=== PATIENT | male | born 1955 | race Caucasian/White ===

== ENCOUNTER 2017-05-17 23:21 | Emergency (ER) | payer OTHER ==
[~2017-05-17] VITALS: Ht 177.8 cm; Wt 77.1 kg
[~2017-05-17 23:21] MED LIST: ACETAMINOPHEN325 M1 PO; ADVANCED ANTAC355 ML PER TUBE; ALPRAZOLAM2 MG PO; AMBIEN 5 MG TABL5 M1 PO; ASPIR 8181 MG PO; BENADRYL25 MG PO; BISAC-EVAC10 MG RC; BUPRENORPHINE HC2 MG SUBLING; CENTRUM SILVER1 EAC2 PO; COLACE100 MG PO; COUMADIN 2 MG TA2 M1 PO; COUMADIN 5 MG TA5 M1 PO; DEPAKOTE500 MG PO; DESYREL100 MG PO; DIAZEPAM 10 MG10 M1 PO; DIAZEPAM 5 MG5 M1 PO; DIPHENHIST50 MG PO; DOLOPHINE HCL5 MG PO; EFFEXOR XR150 MG PO; EFFEXOR XR75 MG PO; EFFEXOR75 MG PO; IBUPROFEN200 M2 PO; METHADONE HCL 110 M1 PO; METOPROLOL TART25 MG PO; MORPHINE SULFAT15 M1 PO; MS CONTIN 30 MG30 M1 PO; MS CONTIN30 MG PO; OXYCODONE HCL 55 MG PO; OXYCODONE HCL E10 MG PO; OXYCODONE IR PO; OXYCONTIN10 M1 PO; PERCOCET 5-3251 EACH PO; PHOSPHATIDYL S100 GM PO; PROMETHAZINE12.5 M1 PO; TOPROL XL50 MG PO; TRAZODONE 150150 M1 PO; TRAZODONE PO; XANAX XR1 MG PO
[2017-05-17 23:39] LABS: ABSOLUTE NEUTROPHILS 8.8 thou/uL (1.4-8.2); BASOPHILS 0.6 % (0.0-2.0); EOSINOPHILS 0.4 % (0.0-3.0); HEMATOCRIT 40.1 % (42.0-52.0); LYMPHOCYTES 22.8 % (24.0-44.0); MCHC 34.9 g/dL (28.0-37.0); MONOCYTES 4.3 % (1.0-8.0); PLATELET COUNT 449 thou/uL (150-400); POLYS 71.9 % (36.0-66.0); RBC 4.66 mil/uL (4.50-6.00); RDW 13.3 % (10.5-14.5); WBC 12.3 thou/uL (4.0-11.0)
[2017-05-17 23:42] LABS: CALCIUM 9.2 mg/dL (8.5-10.1); CREATININE 1.6 mg/dL (0.7-1.3); POTASSIUM 3.7 mmol/L (3.5-5.1)
[2017-05-17 23:48] LABS: ALBUMIN 3.9 g/dL (3.4-5.0); TOTAL BILIRUBIN 0.8 mg/dL (<0.1-1.0); TOTAL PROTEIN 8.9 g/dL (6.4-8.2)
[2017-05-18] MEDS ORDERED: XANAX2 MG PO (00:02)
[2017-05-18] MEDS ORDERED: DEPAKOTE500 MG PO (00:02)
[2017-05-18 01:53] VITALS: BP 140/103
[2017-10-28] MEDS ORDERED: LOPRESSOR50 PO (16:04)
[2017-10-28] MEDS ORDERED: EFFEXOR XR75 MG PO (16:05)
[2017-10-28] MEDS ORDERED: DOLOPHINE HCL10 MG PO (16:07)
== END 2017-05-18 01:55 | disposition home or self-care (01) ==
LOC: ER 23:21
PROVIDERS: Emergency Medicine
DX: G40.909 Epilepsy, unspecified, not intractable, without status epilepticus (principal); F13.239 Sedative, hypnotic or anxiolytic dependence with withdrawal, unspecified; G89.29 Other chronic pain; M54.9 Dorsalgia, unspecified; F31.9 Bipolar disorder, unspecified; F41.9 Anxiety disorder, unspecified; I10 Essential (primary) hypertension; Z96.651 Presence of right artificial knee joint; Z88.5 Allergy status to narcotic agent; Z88.2 Allergy status to sulfonamides; Z88.6 Allergy status to analgesic agent

== ENCOUNTER 2017-11-11 12:13 | Inpatient (IN) | payer OTHER ==
[~2017-11-11] VITALS: Ht 177.8 cm; Wt 80.7 kg
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
--- NOTE | ~2017-11-11 | EEG ---
[facility] [place] [address] ELECTROENCEPHALOGRAM Name: RUMA LOYA Room #: 420-P [facility] IN M.R.#: [id number] Admission: 11/11/17 Attend Phys: Scott Tovar MD, [facility] Discharge: Date of : 57 Report #: [id number] THIS REPORT FOR: //name// CC: Scott Tovar DATE OF SERVICE: 11/11/2017 This patient had 2 seizures. He had what looks like involuntary movements today. The EEG is being done to further evaluate that. The EEG was done by placing the electrode by standard 10-20 system of electrode placement. Both referential and sequential montages were used for recording. Background activity in this patient's EEG is about 11 Hz and 40-50 microvolt. It is a symmetrical activity. The patient went to sleep associated with bilaterally symmetrical sleep spindle and vertex sharp waves. Photic stimulation is unremarkable. Throughout the records, no active epileptiform activity was noticed. IMPRESSION: This patient's EEG does not demonstrate any clear-cut epileptiform activity. By: 14 Dillon Calvo MD /nt
--- NOTE | ~2017-11-11 | H ---
[facility] [place] [address] HISTORY AND PHYSICAL Name: RUMA LOYA Room #: 420-P [facility] IN M.R.#: [id number] Admission: 11/11/17 Attend Phys: Scott Tovar MD, FAAF Discharge: Date of : 57 Report #: [id number] THIS REPORT FOR: //name// CC: Scott Calvo MD DATE OF SERVICE: 11/11/2017 CHIEF COMPLAINT: Possible seizure. HISTORY OF PRESENT ILLNESS: The patient is a 62-year-old white male patient of [facility] who was having lunch at [employer], having just ordered, had an odd event where he started staring at the ceiling, turning circles and pointing and talking then lost consciousness. He came to fairly quickly. He was with his girlfriend. He was not postictal at that time. They proceeded to the Emergency Department at [facility] where he was evaluated by the Emergency Room physician and also Dr. Dillon Calvo, neurologist, and EEG was done. 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 MEDICATIONS: Trazodone 150 mg 1 p.o. at bedtime, Depakote 500 mg 1 p.o. b.i.d., alprazolam 2 mg q.i.d. p.r.n. anxiety, metoprolol 50 mg 1 p.o. b.i.d., Effexor XR 75 mg 2 p.o. b.i.d., methadone 20 mg p.o. b.i.d. ALLERGIES: SULFA, CODEINE, HYDROCODONE AND TRAMADOL. SOCIAL HISTORY: Nonsmoker, nondrinker. Denies recreational drug use. He is soon to move to [facility], mother in the [place] area. REVIEW OF SYSTEMS: GENERAL: No fever, chills, nausea, vomiting, diarrhea. EYES: No visual changes. ENT: No problems with hearing, swallow, taste or smell. CARDIOVASCULAR: No chest pain or palpitations. RESPIRATORY: No difficulty breathing. GASTROINTESTINAL: No abdominal pain. GENITOURINARY: No problems urinating. MUSCULOSKELETAL: No muscle or joint pain. DERMATOLOGIC: There is no disturbing lesions or rash. NEUROLOGIC: A recent syncopal episode versus seizure. Remainder of system review is negative. [address] [address] HISTORY AND PHYSICAL Name: RUMA LOYA Room #: 420-[facility] IN M.R.#: [id number] Admission: 11/11/17 Attend Phys: Scott Tovar MD, FAAF Discharge: Date of : 57 Report #: [id number] OBJECTIVE: VITAL SIGNS: Temperature is 36.7, pulse 75, respirations 17, blood pressure 125/86, pulse ox on room air is 100%. He weighs 80.74 kilos or 178 pounds. GENERAL: At the time of my exam in the Emergency Department, he was in no acute distress, engaging in conversation. Speaks full sentences, answers questions appropriately. HEENT: Pupils equal, round, reactive to light and accommodation. Extraocular muscles intact. Pharynx unremarkable. NECK: Supple. CARDIAC: S1, S2. CHEST: Clear. ABDOMEN: Soft, nontender. EXTREMITIES: No cyanosis, clubbing or edema. SKIN: He is intact without focal deficit. LABORATORY EVALUATIONS: CBC: White count is 5.3, hemoglobin 13.1, hematocrit 37.2, platelets 262,000. Serum chemistry: Sodium 139, potassium 3.6, chloride 100, CO2 of 24, BUN 12, creatinine 1.6, estimated glomerular filtration rate 44, glucose 132, calcium 9.0. Total bilirubin 1.1, AST 20, ALT 15, alkaline phosphatase 95. Troponin less than 0.06. BNP 1611. Total protein 7.8, albumin 7.8. Valproic acid level 28. ASSESSMENT: Seizure versus syncopal episode, loss of consciousness, elevated creatinine, chronic back pain, elevated brain natriuretic peptide. PLAN: Admit to hospital, a.m. labs. Follow up Neurology consult. CT scan and chest x-rays were negative. <ELECTRONICALLY SIGNED> By: Scott Tovar MD, FAAFP, FACEP 11/12/17 1633 1538 1615 Scott Tovar MD, SUSIFP, FACEP /nt
--- NOTE | ~2017-11-11 | EKG ---
[place] [address] [facility] [address] ELECTROCARDIOGRAM REPORT Name: RUMA LOYA Room #: 420-P ADM IN M.R.#: [id number] Admission: 11/11/17 Attend Phys: Scott Tovar MD, FAAF Discharge: Date of : 57 Report #: [id number] THIS REPORT FOR: //name// [facility] ED Test Date: 2017-11-11 Test Time: 13:32:45 Pat Name: RUMA LOYA Department: Room: Gender: M Major General: ABELINO : 1955 Requested By: Rubén Quiroz Order Number: [id number] MD: Mateo Roldan Measurements Intervals [place] Rate: 66 P: 43 NV: 165 QRS: -24 QRSD: 104 T: 6 QT: 416 QTc: 436 Interpretive Statements Sinus rhythm Borderline left axis deviation Abnormal R-wave progression, early transition Compared to ECG 04/03/2013 10:25:42 Sinus bradycardia no longer present Electronically Signed On 11-12-2017 7:30:47 CDT by Mateo Roldan [email or web address] <ELECTRONICALLY SIGNED> By: Mateo Roldan MD, [facility] 11/12/17 0730 1332 1332 Mateo Roldan MD, [facility] /EPI
[2017-11-11 12:13] VITALS: BP 125/86
[~2017-11-11 12:13] MED LIST changes: +DOLOPHINE HCL10 MG PO; +LOPRESSOR50 PO; +XANAX2 MG PO
[2017-11-11 13:19] LABS: ABSOLUTE NEUTROPHILS 3.7 thou/uL (1.4-8.2); BASOPHILS 0.6 % (0.0-2.0); EOSINOPHILS 1.3 % (0.0-3.0); HEMATOCRIT 37.2 % (42.0-52.0); HEMOGLOBIN 13.1 gm/dL (14.0-18.0); LYMPHOCYTES 23.6 % (24.0-44.0); MCH 30.3 pg (26.0-34.0); MCHC 35.1 g/dL (28.0-37.0); MCV 86.4 fL (80.0-100.0); MONOCYTES 4.6 % (1.0-8.0); PLATELET COUNT 262 thou/uL (150-400); POLYS 69.9 % (36.0-66.0); RBC 4.31 mil/uL (4.50-6.00); RDW 13.6 % (10.5-14.5); WBC 5.3 thou/uL (4.0-11.0)
[2017-11-11 13:24] LABS: ANION GAP 15 mmol/L (7-16); BUN 12 mg/dL (7-18); CHLORIDE 100 mmol/L (98-107); CO2 24 mmol/L (21-32); CREATININE 1.6 mg/dL (0.7-1.3); GLUCOSE 132 mg/dL (74-106); POTASSIUM 3.6 mmol/L (3.5-5.1); SODIUM 139 mmol/L (136-145)
[2017-11-11 13:32] LABS: ALBUMIN 3.9 g/dL (3.4-5.0); SGOT 20 U/L (15-37); SGPT 15 U/L (30-65); TOTAL BILIRUBIN 1.1 mg/dL (<0.1-1.0); TOTAL PROTEIN 7.8 g/dL (6.4-8.2); TROPONIN-I <0.06 ng/mL (<0.06)
[2017-11-11 18:47] VITALS: BP 136/98
[2017-11-11 19:33] VITALS: BP 137/88
[2017-11-11 19:40] VITALS: BP 153/96
[2017-11-12] VITALS: BP 120/68
[2017-11-12 04:05] VITALS: BP 123/74
[2017-11-12 06:02] LABS: ABSOLUTE NEUTROPHILS 3.4 thou/uL (1.4-8.2); BASOPHILS 0.8 % (0.0-2.0); HEMATOCRIT 31.9 % (42.0-52.0); HEMOGLOBIN 11.3 gm/dL (14.0-18.0); LYMPHOCYTES 38.6 % (24.0-44.0); MCH 30.5 pg (26.0-34.0); MCHC 35.3 g/dL (28.0-37.0); MCV 86.4 fL (80.0-100.0); MONOCYTES 7.3 % (1.0-8.0); PLATELET COUNT 207 thou/uL (150-400); POLYS 50.3 % (36.0-66.0); RBC 3.69 mil/uL (4.50-6.00); RDW 13.8 % (10.5-14.5); WBC 6.9 thou/uL (4.0-11.0)
[2017-11-12 06:21] LABS: CALCIUM 8.2 mg/dL (8.5-10.1); CREATININE 1.2 mg/dL (0.7-1.3); POTASSIUM 3.5 mmol/L (3.5-5.1)
[2017-11-12 07:40] VITALS: BP 125/75
[2017-11-12 16:35] VITALS: BP 125/75
[2017-11-12 16:46] VITALS: BP 133/84
== END 2017-11-12 17:02 | disposition home or self-care (01) | DRG 312 ==
LOC: ER 12:13 → EROBS 13:45 → 4E 13:45
PROVIDERS: Emergency Medicine; Family Medicine
DX: R55 Syncope and collapse (principal); G89.29 Other chronic pain; M54.9 Dorsalgia, unspecified; F31.9 Bipolar disorder, unspecified; F41.9 Anxiety disorder, unspecified; I10 Essential (primary) hypertension; Z96.651 Presence of right artificial knee joint; Z86.19 Personal history of other infectious and parasitic diseases; Z88.6 Allergy status to analgesic agent; Z88.2 Allergy status to sulfonamides; Z88.8 Allergy status to other drugs, medicaments and biological substances; Z79.899 Other long term (current) drug therapy
CPT/HCPCS: 10183

== ENCOUNTER 2019-08-13 14:11 | Inpatient (IN) | payer OTHER ==
[~2019-08-13] VITALS: Ht 177.8 cm; Wt 67.6 kg
--- NOTE | ~2019-08-13 | EMS ---
[address] [address] EMS Patient Care Report Name: RUMA LOYA Room #: REG RAÚL Gray#: [id number] Admission: 08/13/19 Attend Phys: Discharge: Date of : 57 Report #: [id number] THIS REPORT FOR: //name// Report Transmitted: 08/13/2019 15:56 EMS Care Summary [place], [place]/[facility] Incident [id number] @ 08/13/2019 13:32 Incident [id number] [place] [address] [address] Patient RUMA LOYA Male, 64 Years 1955 Patient Address [id number] [place] [address] [address] [place] [id number] Patient Allergies Codeine,Sulfa,Oxycodone,Tramadol, Chief Complaint Head injury Disposition Transported No Lights/[place] Reason Falls Transported To [facility] Narrative 64 y/o male with a head injury after a fall. On arrival found pt sitting on floor with broken pieces of a table around him, P45 and NH staff on scene. Pt stated he lost his balance and fell hitting his head. Pt denied neck/back pain, denied losing consciousness and had no obvious neurological deficits. Pt was able to stand with assistance and transfer to stretcher. P45/EMS transferred pt in stretcher to ambulance. Once in ambulance EMS attempted an IV, unsuccessful and performed a 12-lead ECG. [address] [address] EMS Patient Care Report Name: RUMA LOYA Room #: REG [facility].#: [id number] Admission: 08/13/19 Attend Phys: Discharge: Date of : 57 Report #: [id number] EMS monitored pt/VS/ECG en route to [facility] ED. Transferred care of pt to [facility] ED RN without incident. Initial Vitals @14:00P: 67,BP: 151/85,CO: 0,SpO2: 96, @13:50P: 71,BP: 158/87,CO: 2,SpO2: 95, @13:43P: 75,R: 20,BP: 165/90,Pain: 2/10,GCS: 15,Glucose: 207,SpO2: 95,Revised Trauma: 12, @13:53P: 68,SpO2: 97, Assessments @13:41MENTAL:Confused,Person Oriented,Place Oriented,Event Oriented,SKIN:No Abnormalities,HEENT:Head/Face: Other,Head/Face: ABR,Head/Face: ABR,LUNG SOUNDS:General: No Abnormalities,Left Upper: No Abnormalities,Right Upper: No Abnormalities,Left Lower: No Abnormalities,Right Lower: No Abnormalities,ABDOMEN:General: No Abnormalities,Left Upper: No Abnormalities,Right Upper: No Abnormalities,Left Lower: No Abnormalities,Right Lower: No Abnormalities,PELVIS//GI:No Abnormalities,EXTREMITIES:Capillary Refill: Left Upper: < 2 Sec,Left Arm: No Abnormalities,Right Arm: No Abnormalities,Left Leg: No Abnormalities,Right Leg: No Abnormalities,PULSE:Radial: 2+ Normal,NEURO:No Abnormalities, Impression Injury of Head Procedures @13:5312-Lead ECGResponse: UnchangedSucceeded@13:41ALS AssessmentResponse: UnchangedSucceeded Timeline 13:29,Call Received 13:29,Dispatch Notified 13:32,Dispatched 13:33,En Route 13:37,On Scene 13:41,At Patient 13:41,ALS Assessment,Response: UnchangedSucceeded, 13:43,BP: 165/90 M,PULSE: 75,RR: 20 R,SPO2: 95 Ox,ETCO2: ,B,PAIN: 2,GCS: 15, 13:50,BP: 158/87 M,PULSE: 71,RR: R,SPO2: 95 Ox,ETCO2: ,BG: ,PAIN: ,GCS: , 13:53,12-Lead ECG,Response: UnchangedSucceeded, 13:53,BP: / M,PULSE: 68,RR: R,SPO2: 97 Ox,ETCO2: ,BG: ,PAIN: ,GCS: , 13:56,Depart Scene 14:00,BP: 151/85 M,PULSE: 67,RR: R,SPO2: 96 Ox,ETCO2: ,BG: ,PAIN: ,GCS: , 14:13,At Destination [address] [address] EMS Patient Care Report Name: RUMA LOYA Room #: REG [facility].#: [id number] Admission: 08/13/19 Attend Phys: Discharge: Date of : 57 Report #: [id number] 14:24,Call Closed Disclaimer v1.1 Copyright 2020 [employer] This EMS Care Summary contains data elements from the applicable legal record (which may be displayed differently). It is designed to provide pertinent information for the following purposes: continuity of care, clinical quality, and state data reporting. The complete legal record is available to ED staff and administrators of the receiving hospital in [employer]'s Patient Tracker. All data is provided "as is."
[~2019-08-13 14:11] MED LIST changes: +EFFEXOR 5050 MG/1 T1 PO
[2019-08-13 14:12] VITALS: BP 151/85
[2019-08-13] MEDS ORDERED: LORAZEPAM 1 MG T1 MG PO (14:21)
[2019-08-13 15:52] LABS: ABSOLUTE NEUTROPHILS 12.1 thou/uL (1.4-8.2); BASOPHILS 0.5 % (0.0-2.0); HEMOGLOBIN 12.3 gm/dL (14.0-18.0); MCH 29.1 pg (26.0-34.0); MCHC 33.4 g/dL (28.0-37.0); MCV 87.4 fL (80.0-100.0); MONOCYTES 5.1 % (1.0-8.0); PLATELET COUNT 466 thou/uL (150-400); POLYS 85.4 % (36.0-66.0); RBC 4.23 mil/uL (4.50-6.00); RDW 15.7 % (10.5-14.5); WBC 14.1 thou/uL (4.0-11.0)
[2019-08-13 15:57] LABS: ANION GAP 14 mmol/L (7-16); BUN 36 mg/dL (7-18); CALCIUM 9.9 mg/dL (8.5-10.1); CHLORIDE 105 mmol/L (98-107); CO2 24 mmol/L (21-32); CREATININE 1.3 mg/dL (0.7-1.3); GLUCOSE 162 mg/dL (74-106); SODIUM 143 mmol/L (136-145)
[2019-08-13 15:59] LABS: POTASSIUM 2.9 mmol/L (3.5-5.1)
[2019-08-13 16:07] LABS: ALBUMIN 4.5 g/dL (3.4-5.0); SGOT 13 U/L (15-37); SGPT 20 U/L (30-65); TOTAL BILIRUBIN 0.8 mg/dL (<0.1-1.0); TOTAL PROTEIN 8.7 g/dL (6.4-8.2); TROPONIN-I <0.06 ng/mL (<0.06)
[2019-08-13 16:44] LABS: URINE BLOOD 3+ (Negative); URINE CLARITY CLOUDY; URINE COLOR RED; URINE GLUCOSE-RANDOM* NEGATIVE (Negative); URINE KETONES 2+ (Negative); URINE LEUKOCYTES-REFLEX TRACE (Negative); URINE PROTEIN (DIPSTICK) 3+ (Negative); URINE SPECIFIC GRAVITY >= 1.030 (1.005-1.035)
[2019-08-13 16:45] LABS: ICTOTEST (BILI CONFIRMATORY) Negative (Negative); URINE BILIRUBIN NEGATIVE (Negative); URINE NITRITE-REFLEX POSITIVE (Negative)
[2019-08-13 16:50] LABS: BACTERIA-REFLEX 1-9 Few /HPF (None Seen); CASTS None Seen /LPF (None Seen); CRYSTALS None Seen /LPF (None Seen); SQUAMOUS 0-3 Few /LPF (0-3); URINE RBC >20 Many /HPF (0-2); URINE WBC-REFLEX 0-5 Rare /HPF (0-5)
[2019-08-13 17:16] VITALS: BP 165/85
[2019-08-13 20:34] VITALS: BP 148/89
[2019-08-13 21:05] VITALS: BP 146/85
[2019-08-14 02:39] LABS: AMP/METHAMP Negative (Negative); BARBITURATES Negative (Negative); BENZODIAZEPINES POSITIVE (Negative); COCAINE Negative (Negative); METHADONE Negative (Negative); OPIATES Negative (Negative); PCP Negative (Negative)
[2019-08-14 05:18] VITALS: BP 144/82
[2019-08-14 05:21] LABS: ABSOLUTE NEUTROPHILS 12.8 thou/uL (1.4-8.2); BASOPHILS 0.3 % (0.0-2.0); HEMATOCRIT 35.7 % (42.0-52.0); HEMOGLOBIN 11.7 gm/dL (14.0-18.0); LYMPHOCYTES 13.5 % (24.0-44.0); MCH 29.2 pg (26.0-34.0); MCHC 32.8 g/dL (28.0-37.0); MCV 89.1 fL (80.0-100.0); MONOCYTES 6.6 % (1.0-8.0); PLATELET COUNT 443 thou/uL (150-400); POLYS 79.6 % (36.0-66.0); RBC 4.01 mil/uL (4.50-6.00); RDW 15.5 % (10.5-14.5)
[2019-08-14 05:30] LABS: CALCIUM 9.4 mg/dL (8.5-10.1); CREATININE 1.2 mg/dL (0.7-1.3); POTASSIUM 3.3 mmol/L (3.5-5.1)
[2019-08-14 08:06] VITALS: BP 155/86
[2019-08-14 16:11] VITALS: BP 156/80
[2019-08-14 18:10] LABS: TSH 0.432 uIU/mL (0.358-3.740)
[2019-08-14 19:54] VITALS: BP 162/87
[2019-08-15 05:33] LABS: ABSOLUTE NEUTROPHILS 9.2 thou/uL (1.4-8.2); BASOPHILS 0.2 % (0.0-2.0); EOSINOPHILS 0.1 % (0.0-3.0); HEMATOCRIT 34.1 % (42.0-52.0); HEMOGLOBIN 11.5 gm/dL (14.0-18.0); LYMPHOCYTES 25.3 % (24.0-44.0); MCH 29.3 pg (26.0-34.0); MCHC 33.6 g/dL (28.0-37.0); MCV 87.1 fL (80.0-100.0); MONOCYTES 6.7 % (1.0-8.0); PLATELET COUNT 395 thou/uL (150-400); POLYS 67.7 % (36.0-66.0); RBC 3.92 mil/uL (4.50-6.00); RDW 15.3 % (10.5-14.5); WBC 13.6 thou/uL (4.0-11.0)
[2019-08-15 05:52] LABS: ALBUMIN 3.7 g/dL (3.4-5.0); CALCIUM 8.8 mg/dL (8.5-10.1); CREATININE 1.3 mg/dL (0.7-1.3); TOTAL BILIRUBIN 0.8 mg/dL (<0.1-1.0); TOTAL PROTEIN 7.3 g/dL (6.4-8.2)
[2019-08-15 08:22] VITALS: BP 147/86
[2019-08-15 15:23] VITALS: BP 146/94
[2019-08-15 19:27] VITALS: BP 147/90
[2019-08-16 03:51] VITALS: BP 159/87
[2019-08-16 07:53] VITALS: BP 155/84
[2019-08-16 17:07] VITALS: BP 137/84
[2019-08-16 20:10] VITALS: BP 137/77
[2019-08-17 05:15] VITALS: BP 147/84
[2019-08-17 07:42] VITALS: BP 162/84
[2019-08-17 15:21] LABS: HEMATOCRIT 36.7 % (42.0-52.0); HEMOGLOBIN 12.4 gm/dL (14.0-18.0); MCH 29.6 pg (26.0-34.0); MCHC 33.7 g/dL (28.0-37.0); MCV 87.9 fL (80.0-100.0); RBC 4.18 mil/uL (4.50-6.00); RDW 15.3 % (10.5-14.5); WBC 10.8 thou/uL (4.0-11.0)
[2019-08-17 15:47] LABS: APTT 24.1 Seconds (24.5-32.8); INR 1.2; PROTIME 12.2 Seconds (9.3-11.4)
--- NOTE | 2019-08-17 16:05 | H ---
[facility] [address] [place] [address] HISTORY AND PHYSICAL Name: RUMA LOYA Room #: 447-P ADM IN M.R.#: [id number] Admission: 08/13/19 Attend Phys: Scott Tovar MD, FAAF Discharge: Date of : 57 Report #: [id number] THIS REPORT FOR: cc: Scott Tovar MD FAAFP FACEP Scott Tovar MD FAAFP FACEP Scott Tovar MD FAA FACEP ~ CC: [facility]ar [facility] DATE OF SERVICE: 08/13/2019 CHIEF COMPLAINT: Fall with forehead contusion; UTI; mental status changes. HISTORY OF PRESENT ILLNESS: The patient is a 64-year-old white male well known to me as I have been his primary care doctor for a number of years. Over the last 2 years he has spent quite a bit of time in [place] where he relocated on an intermittent basis and now is back residing in [place] at [facility]. He had a fall at his skilled nursing establishment and had an unknown period of downtime. He has an abrasion on the right aspect of forehead. He has no recollection of his fall and is confused at the time of my examination of him and interview with him in the Emergency Department. CT scan of the head just showed microvascular changes with no fracture and no intracranial hemorrhage. He was noted to have a urinary tract infection and his potassium was low at 2.9. He was confused about his current medications, but it does appear that his Effexor has been discontinued in favor of lorazepam. He is admitted to my service in the hospital. Rocephin was started in the Emergency Department to cover for his urinary tract infection. Urine and blood cultures were sent and potassium corrected and was instituted. PAST MEDICAL HISTORY: Several episodes of seizure/mental status changes with twitching, possibly associated with benzodiazepine withdrawal, chronic back pain, sacral mass, benign, removed in 2006, bipolar affective disorder, anxiety, depression, hypertension, right total knee replacement, colonoscopy, phantom seizure, was last documented 2016. Has history of hepatitis B. MEDICATIONS: Trazodone 150 mg 1 p.o. at bedtime, Keppra 500 mg 1 p.o. b.i.d., metoprolol tartrate 50 mg 1 p.o. b.i.d., Effexor 150 mg 1 p.o. b.i.d., lorazepam 1 mg p.o. q.i.d. p.r.n. anxiety. ALLERGIES: SULFA, CODEINE, HYDROCODONE and TRAMADOL. SOCIAL HISTORY: Nonsmoker, nondrinker. Denies recreational drug use, recently relocated temporarily to [place]. His mother lives in [facility]. FAMILY HISTORY: Noncontributory. [facility] [address] [place] [address] HISTORY AND PHYSICAL Name: RUMA LOYA Room #: 447-P [facility] IN M.R.#: [id number] Admission: 08/13/19 Attend Phys: Scott Tovar MD, FAAF Discharge: Date of : 57 Report #: [id number] REVIEW OF SYSTEMS: Recent fall with abrasion to right forehead, mental status changes, odd twitching. Due to his confused state further review of systems is not able to be obtained in a reliable fashion. OBJECTIVE: VITAL SIGNS: Temperature 36.8, pulse 67, respirations 20, blood pressure 151/85, pulse ox on room air is 97%. GENERAL: He is doing some facial twitching. He answers questions with short answers appropriately, but is obviously somewhat confused about recent events that have transpired. Has no recollection of his fall. HEENT: Pupils equal, round, reactive to light and accommodation. Extraocular muscles intact. Abrasion on his forehead, right aspect. Oropharynx is unremarkable. NECK: Supple, nontender. COR: S1, S2. CHEST: Clear. ABDOMEN: Soft, nontender. EXTREMITIES: Cyanosis, clubbing or edema. NEUROLOGIC: He has no focal deficits, but is confused. LABORATORY EVALUATION: CBC: White count is 14.1, hemoglobin 12.3, hematocrit 37.0, platelets 466,000. Differential white count, 85.4% segmented neutrophils, 9% lymphocytes, 5% monocytes. Serum chemistry: Sodium is 143, potassium is 2.9, chloride 105, CO2 of 24, anion gap 14, BUN 36, creatinine 1.3, estimated glomerular filtration rate is 56, glucose 162, calcium is 9.9, total bilirubin 0.8, AST 13, ALT 20, alkaline phosphatase 125. Troponin less than 0.06. Total protein 8.7, albumin 4.5. Urinalysis from a voided sample shows a red cloudy urine, pH 5.0. Specific gravity greater than 1.030, 3+ protein was seen, 2+ ketones, 3+ blood, positive nitrite, negative bilirubin, negative urine Ictotest, urobilinogen 1.0, trace leukocyte esterase is seen under the microscope, greater than 20 red cells per high powered field, 0-5 white cells per high powered field, 0-3 squamous epithelial cells seen, no crystals, 1-9 bacteria, no urinary casts and a random urinary glucose was negative. Chest x-ray, portable AP view of chest done from the Emergency Room showed no acute cardiopulmonary changes. No change from prior study. New post-surgical changes in the spine was noted since prior study. CT scan of the head also done from the Emergency Department, noncontrast, showed scattered periventricular microvascular ischemic changes. No findings of acute intracranial abnormality. ASSESSMENT: Urinary tract infection, ____ mental status changes forehead contusion, hypokalemia, leukocytosis, volume depletion with elevated BUN to creatinine ratio. PLAN: 1. Admit to hospital, IV antibiotics with Rocephin. Correct potassium. Gentle IV fluid rehydration, instituted in the Emergency Department. Neurology [address] [address] HISTORY AND PHYSICAL Name: RUMA LOYA Room #: 447-P ADM IN M.R.#: [id number] Admission: 08/13/19 Attend Phys: Scott Tovar MD, FAAF Discharge: Date of : 57 Report #: [id number] consult. Restart Effexor; at least some of the symptoms surrounding his scenario may be associated with discontinuation syndrome. 2. Urine drug screen to see if he has a benzodiazepine in his system, symptoms may also be associated with benzodiazepine withdrawal and then follow labs longitudinally and follow cultures. <ELECTRONICALLY SIGNED> By: Scott Tovar MD, FAAFP, FACEP 08/17/19 1605 0938 1049 Scott Tovar MD, FAAFP, FACEP /nt
[2019-08-17 20:02] VITALS: BP 131/91
[2019-08-18 03:32] VITALS: BP 134/92
[2019-08-18 07:05] VITALS: BP 151/89
[2019-08-18 10:58] VITALS: BP 124/71
[2019-08-18 14:53] VITALS: BP 155/85
[2019-08-18 15:21] VITALS: BP 124/71
[2019-08-18 19:10] VITALS: BP 131/88
[2019-08-19 04:55] VITALS: BP 139/75
[2019-08-19 07:48] VITALS: BP 114/73
[2019-08-19 16:53] VITALS: BP 138/90
[2019-08-19 19:45] VITALS: BP 136/80
[2019-08-20 08:41] VITALS: BP 119/78
[2019-08-20 19:05] VITALS: BP 124/71
[2019-08-21 03:30] VITALS: BP 134/81
[2019-08-21 07:24] VITALS: BP 124/79
[2019-08-21] MEDS ORDERED: VITAMIN D325 MCG PO (12:57)
[2019-08-21] MEDS ORDERED: K-DUR 20 MEQ T20 MEQ PO (12:57)
[2019-08-21 13:09] VITALS: BP 124/71
[2019-08-21 13:21] VITALS: BP 124/71
[2019-08-21 15:03] VITALS: BP 122/66
--- NOTE | 2019-08-23 12:54 | EEG ---
[facility] [address] [address] ELECTROENCEPHALOGRAM Name: RUMA LOYA Room #: 436-P [facility] IN M.R.#: [id number] Admission: 08/13/19 Attend Phys: Scott Tovar MD, [facility] Discharge: 08/21/19 Date of : 57 Report #: [id number] THIS REPORT FOR: //name// CC: Scott Tovar Calin Batchu DATE OF SERVICE: 08/14/2019 This patient is being evaluated for altered mental status and seizure-like activity. EEG was attempted, but the patient has a lot of head tremor and recording of the EEG could not be done properly. A lot of artifact is present. Background activity does appear to be going up to about 9 Hz and 30 microvolt. Photic stimulation is unremarkable. The patient appeared to be drowsy during part of this EEG, but is not possible to tell whether there is any epileptiform activity present or not because the EEG is masked by all kind of artifact. IMPRESSION: This patient's EEG she could not be interpreted because this patient has a lot of head tremor. I cannot confirm or rule out epileptiform activity in this patient and clinical decision may have to be made. <ELECTRONICALLY SIGNED> By: Dillon Medina MD 08/23/19 1254 1710 1720 Dillon Medina MD /nt
--- NOTE | 2019-08-25 12:10 | EKG ---
[facility] [address] ELECTROCARDIOGRAM REPORT Name: RUMA LOYA Room #: 436-P [facility] IN M.R.#: [id number] Admission: 08/13/19 Attend Phys: Scott Tovar MD, FAAF Discharge: 08/21/19 Date of : 57 Report #: [id number] THIS REPORT FOR: cc: Scott Tovar MD FAA FACE Scott Tovar MD FAA Mateo Moody MD [facility] THIS REPORT FOR: //name// [facility] ED Test Date: 2019-08-13 Test Time: 15:25:51 Pat Name: RUMA LOYA Department: Room: [facility] Gender: M Cork Tipper: meme : 1955 Requested By: Sharron Gill Order Number: [id number] MD: Mateo Roldan Measurements Intervals [place] Rate: 58 P: 52 AL: 131 QRS: -55 QRSD: 112 T: 46 QT: 487 QTc: 479 Interpretive Statements Sinus rhythm Left anterior fascicular block Abnormal R-wave progression, early transition Left ventricular hypertrophy Compared to ECG 11/11/2017 13:32:45 Left anterior fascicular block now present Left ventricular hypertrophy now present Electronically Signed On 08-14-2019 8:50:25 CDT by Mateo Roldan [email or web address] <ELECTRONICALLY SIGNED> By: Mateo Roldan MD, [facility] 08/14/19 0850 1525 1525 Mateo Roldan MD, [facility] /EPI
== END 2019-08-21 17:03 | disposition home health service (06) | DRG 871 ==
LOC: ER 14:11 → EROBS 17:18 → 4S 17:18
PROVIDERS: Nurse Practitioner Family; Psychiatry & Neurology Neuromuscular Medicine; ADMIT Family Medicine
DX: A41.9 Sepsis, unspecified organism (principal); G92 Toxic encephalopathy; N39.0 Urinary tract infection, site not specified; W19.XXXA Unspecified fall, initial encounter; S00.83XA Contusion of other part of head, initial encounter; E87.6 Hypokalemia; F03.90 Unspecified dementia, unspecified severity, without behavioral disturbance, psychotic disturbance, mood disturbance, and anxiety; G40.909 Epilepsy, unspecified, not intractable, without status epilepticus; I95.1 Orthostatic hypotension; I10 Essential (primary) hypertension; M54.9 Dorsalgia, unspecified; G89.29 Other chronic pain; D72.829 Elevated white blood cell count, unspecified; F31.9 Bipolar disorder, unspecified; F41.9 Anxiety disorder, unspecified; Z96.651 Presence of right artificial knee joint; Y93.89 Activity, other specified; Y99.8 Other external cause status; Z86.018 Personal history of other benign neoplasm; Z79.899 Other long term (current) drug therapy; Y92.89 Other specified places as the place of occurrence of the external cause; Z88.5 Allergy status to narcotic agent; Z88.2 Allergy status to sulfonamides; Z88.8 Allergy status to other drugs, medicaments and biological substances
CPT/HCPCS: 10102; 10195

== ENCOUNTER 2019-08-25 16:03 | Inpatient (IN) | payer OTHER ==
[~2019-08-25] VITALS: Ht 177.8 cm; Wt 64.0 kg
[2019-08-25 16:03] VITALS: BP 124/79
[~2019-08-25 16:03] MED LIST changes: +K-DUR 20 MEQ T20 MEQ PO; +LORAZEPAM 1 MG T1 MG PO; +VITAMIN D325 MCG PO
[2019-08-25 16:42] LABS: HEMATOCRIT 43.6 % (42.0-52.0); HEMOGLOBIN 14.9 gm/dL (14.0-18.0); MCH 29.4 pg (26.0-34.0); MCHC 34.1 g/dL (28.0-37.0); MCV 86.4 fL (80.0-100.0); PLATELET COUNT 252 thou/uL (150-400); RBC 5.05 mil/uL (4.50-6.00); RDW 15.3 % (10.5-14.5); WBC 27.6 thou/uL (4.0-11.0)
[2019-08-25 17:01] LABS: ABSOLUTE NEUTROPHILS 24.6 thou/uL (1.4-8.2)
[2019-08-25 17:02] LABS: ALBUMIN 4.3 g/dL (3.4-5.0); ANION GAP 13 mmol/L (7-16); BUN 35 mg/dL (7-18); CALCIUM 9.4 mg/dL (8.5-10.1); CHLORIDE 94 mmol/L (98-107); CO2 24 mmol/L (21-32); CREATININE 1.3 mg/dL (0.7-1.3); GLUCOSE 119 mg/dL (74-106); SGOT 20 U/L (15-37); SGPT 31 U/L (30-65); SODIUM 131 mmol/L (136-145); TOTAL BILIRUBIN 1.1 mg/dL (<0.1-1.0); TOTAL PROTEIN 8.6 g/dL (6.4-8.2); TROPONIN-I <0.06 ng/mL (<0.06)
[2019-08-25 17:03] LABS: POTASSIUM 2.9 mmol/L (3.5-5.1)
[2019-08-25 17:06] LABS: URINE BILIRUBIN NEGATIVE (Negative); URINE BLOOD TRACE (Negative); URINE CLARITY CLEAR; URINE COLOR YELLOW; URINE GLUCOSE-RANDOM* NEGATIVE (Negative); URINE KETONES NEGATIVE (Negative); URINE LEUKOCYTES-REFLEX NEGATIVE (Negative); URINE NITRITE-REFLEX NEGATIVE (Negative); URINE PROTEIN (DIPSTICK) 1+ (Negative); URINE SPECIFIC GRAVITY 1.025 (1.005-1.035); URINE UROBILINOGEN 0.2 E.U./dl (0.2-1.0)
[2019-08-25 17:33] LABS: BACTERIA-REFLEX 1-9 Few /HPF (None Seen); CASTS None Seen /LPF (None Seen); SQUAMOUS None Seen /LPF (0-3); URINE RBC None Seen /HPF (0-2); URINE WBC-REFLEX 0-5 Rare /HPF (0-5)
[2019-08-25 17:34] LABS: CRYSTALS None Seen /LPF (None Seen)
--- NOTE | 2019-08-25 19:13 | NUR ---
HANDOFF GIVEN TO WINSTON JARA
[2019-08-25 19:25] VITALS: BP 127/84
[2019-08-25 20:25] VITALS: BP 1320/86
[2019-08-25 23:35] VITALS: BP 132/87
[2019-08-26 05:25] VITALS: BP 137/87
[2019-08-26 05:56] LABS: HEMOGLOBIN 13.2 gm/dL (14.0-18.0); MCH 29.5 pg (26.0-34.0); MCHC 33.8 g/dL (28.0-37.0); MCV 87.3 fL (80.0-100.0); RBC 4.47 mil/uL (4.50-6.00); RDW 15.4 % (10.5-14.5); WBC 16.3 thou/uL (4.0-11.0)
[2019-08-26 06:07] LABS: ALBUMIN 3.6 g/dL (3.4-5.0); CALCIUM 8.4 mg/dL (8.5-10.1); CREATININE 1.1 mg/dL (0.7-1.3); TOTAL BILIRUBIN 0.8 mg/dL (<0.1-1.0); TOTAL PROTEIN 7.2 g/dL (6.4-8.2)
[2019-08-26 06:17] LABS: POTASSIUM 2.6 mmol/L (3.5-5.1)
--- NOTE | 2019-08-26 07:24 | NUR ---
PT ARRIVED VIA CART, PLACED IN ROOM 357. ADMISSION ASSESSMENTS COMPLETED. PT DENIED ANY SOA WHILE AT REST. "I THOUGHT I WAS JUST COMING HERE CAUSE OF ALL THE DIARHEA I WAS HAVING." PT REPORTS 4 LOOSES STOOLS PRIOR TO COMING TO THE HOSPITAL AND MULTIPLE DAYS OF LOOSE STOOLS. STOOLS IS BROWN, WATERY WITH ALOT OF MUCOUS. AFEBRILE THROUGHOUT THE NIGHT. ORDERS RECEIVED FROM THELMA GARCIA PO STARTED PER ORDERS.
[2019-08-26 07:35] VITALS: BP 136/87
[2019-08-26 16:31] VITALS: BP 152/83
--- NOTE | 2019-08-26 18:37 | NUR ---
HAD A RECTAL TUBE PLACED THIS AM PATIENT HAD PERSISTENT DIARRHEA. HE DOES NOT SEEM TO BE IN PAIN OR DISTRESS. RESPIRATIONS ARE EVEN NON LABORED. KEPT CLEAN AND DRY. K REPLACED THIS AM.
[2019-08-26 19:55] VITALS: BP 147/87
[2019-08-27 04:18] LABS: ABSOLUTE NEUTROPHILS 6.3 thou/uL (1.4-8.2); BASOPHILS 0.5 % (0.0-2.0); EOSINOPHILS 1.4 % (0.0-3.0); LYMPHOCYTES 24.9 % (24.0-44.0); MCH 30.2 pg (26.0-34.0); MCHC 34.4 g/dL (28.0-37.0); MCV 87.7 fL (80.0-100.0); MONOCYTES 8.3 % (1.0-8.0); PLATELET COUNT 184 thou/uL (150-400); POLYS 64.9 % (36.0-66.0); RBC 3.54 mil/uL (4.50-6.00); RDW 15.7 % (10.5-14.5); WBC 9.7 thou/uL (4.0-11.0)
[2019-08-27 04:19] LABS: HEMOGLOBIN 10.7 gm/dL (14.0-18.0)
[2019-08-27 04:25] LABS: CALCIUM 8.5 mg/dL (8.5-10.1); POTASSIUM 3.5 mmol/L (3.5-5.1)
[2019-08-27 05:20] VITALS: BP 124/76
[2019-08-27 08:48] VITALS: BP 120/78
--- NOTE | 2019-08-27 10:34 | H ---
[facility] [place] [address] HISTORY AND PHYSICAL Name: RUMA LOYA FRANNY Room #: 357-P ADM IN M.R.#: [id number] Admission: 08/25/19 Attend Phys: Franny Tovar MD, [facility] Discharge: Date of : 57 Report #: [id number] THIS REPORT FOR: cc: Franny Tovar MD [facility] Franny Davenport MD [facility] Santino Qiu DO ~ CC: Franny Tovar MD ROOM: 357 HISTORY OF PRESENT ILLNESS: A 64-year-old white male was admitted through the Emergency Room with severe watery diarrhea and weakness. The patient was discharged from here on 08/21/2019 after being treated for a fall and a UTI with cephalexin; however, he developed a rash from the cephalexin and it was discontinued. The patient went on to develop severe diarrhea, which is severe, uncontrollable diarrhea with incontinence, which brought him back to the Emergency Room. PAST MEDICAL HISTORY: Includes seizure disorder, chronic low back pain treated with methadone, previous pelvic injury treated with hip surgery, possible benzodiazepine withdrawal, benign sacral mass in between 2006, bipolar affective disorder, chronic anxiety and depression, hypertension, right total knee replacement and history of hepatitis B. ALLERGIES: SULFA, ACCORDING TO THE PATIENT, AND KEFLEX, GAVE HER RASH ON LAST ADMISSION. PREVIOUS CHART SAYS HE IS ALLERGIC TO CODEINE, HYDROCODONE AND TRAMADOL, BUT THE PATIENT DENIES THEY HAVE BEEN PRESENT. MEDICATIONS ON ADMISSION: Methadone 10 mg b.i.d., vitamin D 1000 units daily, metoprolol tartrate 50 mg b.i.d., Depakote 500 mg b.i.d., trazodone 150 mg at bedtime, venlafaxine 150 mg b.i.d. 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 He moved back here from [place]. 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 FAMILY HISTORY: He has a mother, daughter and a 10-year-old granddaughter here, but he says his daughter calls his mother more than himself. REVIEW OF SYSTEM: He denies fever, chills, abdominal pain, vomiting, melena or hematochezia, cough, or altered taste or smell. PHYSICAL EXAMINATION: GENERAL: Slender, pleasant white male in no distress. VITAL SIGNS: BP 136/87, pulse 60, respiration 20, temperature 36.8. HEAD: No rash or trauma. [address] [address] HISTORY AND PHYSICAL Name: RUMA LOYA Room #: 357-P [facility] IN M..#: [id number] Admission: 08/25/19 Attend Phys: Franny Tovar MD, FAAF Discharge: Date of : 57 Report #: [id number] EARS, NOSE AND THROAT: Mucosa is moist. EYES: No icterus. NECK: Supple, without bruits. LUNGS: Clear. Cough is dry. HEART: Rhythm regular, without murmur. ABDOMEN: Soft, flat without tenderness or guarding. Bowel sounds are slightly hyperactive. EXTREMITIES: No cyanosis, clubbing or edema. NEUROLOGIC: Alert and well oriented. No lateralized deficits. RECTAL: A rectal tube has been inserted at nurse's request because of frequent watery stools. LABORATORY DATA: Initial white count was 27,000, on repeat it is down to 16,000 today. Potassium was low at 2.9, still low at 2.6 this morning. Sodium 136, CO2 of 23, BUN 31, creatinine 1.1, blood sugar 107, calcium 8.4. Liver enzymes normal. Serum albumin normal. CAT scan of the head shows chronic changes. CAT scan of the abdomen and pelvis shows left colon and sigmoid colitis. Chest x-ray is negative. IMPRESSION: 1. Multiple incontinent watery diarrhea stools, suspect Clostridium difficile colitis. 2. Recent antibiotic treatment for urinary tract infection. 3. History of seizure disorder. 4. History of hypertension. 5. Chronic low back pain requiring methadone. 6. History of anxiety disorder. 7. History of bipolar affective disorder. 8. Hypokalemia. PLAN: Replace potassium, rehydrate. Check stool for C. diff, that started p.o. vancomycin since stool sample has been sent. He has been ruled out for COVID-19 because of diarrhea presentation and low-grade fever. PROGNOSIS: Guarded. <ELECTRONICALLY SIGNED> By: Santino Hauser DO 08/27/19 1034 [id number] 1233 Santino Hauser DO /nt
--- NOTE | 2019-08-27 13:01 | EKG ---
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 : 1955 Requested By: Julian Bolanos Order Number: [id number] MD: Rome Lyle Measurements Intervals [place] Rate: 83 P: 46 MN: 137 QRS: -69 QRSD: 100 T: 86 QT: 396 QTc: 466 Interpretive Statements Sinus rhythm Probable left atrial enlargement Incomplete RBBB and LAFB Consider right ventricular hypertrophy Left ventricular hypertrophy Compared to ECG 08/13/2019 15:25:51 Incomplete right bundle-branch block now present Right bundle-branch block now present Electronically Signed On 08-27-2019 13:00:12 CDT by Rome Lyle [email or web address] <ELECTRONICALLY SIGNED> By: Rome Lyle MD 08/27/19 1300 52 52 Rome Lyle MD /EPI
[2019-08-27 17:18] VITALS: BP 141/78
--- NOTE | 2019-08-27 18:00 | NUR ---
PT IN ISOLATION FOR CDIFF AND R/O COVID...HAD FECAL MGT SYSTEM BUT ONLY HAd about 75 ml in BAG...DC'F FECAL MGT SYSTEM @ 1300 AND NO FURTHER STOOLS TODAY...REPORTS AN INCREASE IN APPETITE THIS EDGAR AT DINNER..
[2019-08-27 19:58] VITALS: BP 133/78
--- NOTE | 2019-08-27 23:00 | NUR ---
Progressing towards outcome goals. COVID negative. Transfered to 442 per bed. Patient updated with progress. Vital signs and rhythm stable. IVfluids infusing. Fall precautions in place.
[2019-08-28 03:30] VITALS: BP 129/80
--- NOTE | 2019-08-28 05:32 | NUR ---
PT AOX4. PT DENIES PAIN AND SOB. PT REPORTS AMBULATING TO BATHROOM, PT OBSERVED RESTING IN BED THROUGHOUT SHIFT. PT INDEPENDENT WITH REPOSITIONING. PT TOLERATING PO INTAKE OF FLUIDS WITHOUT ISSUE. PT USING URINAL WHILE IN BED. ENCOURAGED PT TO NOTIFY STAFF FOR ALL NEEDS. CALL LIGHT WITHIN REACH, BED IN LOWEST POSITION, BED ALARM ON. WILL CONTINUE TO MONITOR.
[2019-08-28 06:30] LABS: ABSOLUTE NEUTROPHILS 2.8 thou/uL (1.4-8.2); BASOPHILS 0.8 % (0.0-2.0); EOSINOPHILS 3.7 % (0.0-3.0); HEMOGLOBIN 10.7 gm/dL (14.0-18.0); LYMPHOCYTES 38.7 % (24.0-44.0); MCH 30.2 pg (26.0-34.0); MCHC 34.4 g/dL (28.0-37.0); MCV 87.9 fL (80.0-100.0); MONOCYTES 6.9 % (1.0-8.0); PLATELET COUNT 167 thou/uL (150-400); POLYS 49.9 % (36.0-66.0); RBC 3.53 mil/uL (4.50-6.00); RDW 15.4 % (10.5-14.5); WBC 5.7 thou/uL (4.0-11.0)
[2019-08-28 06:53] LABS: ALBUMIN 2.7 g/dL (3.4-5.0); CALCIUM 7.8 mg/dL (8.5-10.1); CREATININE 0.9 mg/dL (0.7-1.3); TOTAL BILIRUBIN 0.7 mg/dL (<0.1-1.0); TOTAL PROTEIN 5.7 g/dL (6.4-8.2)
[2019-08-28 08:04] VITALS: BP 111/78
--- NOTE | 2019-08-28 11:56 | NUR ---
PT ADMITTED RELATED TO DIARHEA, LOSS APPETITE. CM REVIWED CHART AND SPOKE WITH CARE TEAM. PT IS FAMILLIAR TO CM FROM RECENT STAY PT DISCHARGED BACK TO [facility] 08/21/19 ON [facility]. CM SPOKE WITH PT IN HIS ROOM THIS DAY. HE INDICATED THAT HE HAD BEEN DOING FINE WITH HH BUT THAT HE HAD DEVELOPED CURRENT ISSUE. PT INIDCATED THAT HE PLANS TO BE ABLE TO RETURN HOME TO [facility] AND RESUMING SERVICES ONCE MEDICALLY STABLE. CM TO FOLLOW INDICATED WITH DC PLANNING.
--- NOTE | 2019-08-28 15:33 | NUR ---
PT A&OX4. CONT FLUIDS INFUSING IN L AC W/O COMPS. AMBULATES WITH ASSIST X1. ON ISOLATION FOR C DIFF THOUGH HASNT HAD A STOOL SINCE 08/27/19. CALL LIGHT W/I REACH, BED ALARM IS ON.
[2019-08-28 16:33] VITALS: BP 125/80
[2019-08-28 19:16] VITALS: BP 135/86
--- NOTE | 2019-08-29 04:00 | NUR ---
PLEASANT AND COOPERATIVE. CFIFF ISOLATION. NO BM IN THE NIGHT. VOIDING ADEQUATELY. AFEBRILE. DENIES NAUSEA ND VOMITING. MAKES NEEDS KNOWN.
[2019-08-29 04:34] VITALS: BP 130/81
[2019-08-29 07:09] VITALS: BP 138/91
--- NOTE | 2019-08-29 13:25 | NUR ---
PT ON SERVICE WITH [facility] PRIOR TO ADM. FAXED CLINICAL UPDATE SPOKE WITH ANKITA IN INTAKE AND THEY CAN RESUME CARE AT DISCHARGE. DP TO FOLLOW.
--- NOTE | 2019-08-29 15:26 | NUR ---
CARE TEAM INDICATED THAT PT IS PROGRESSING TOWARD GOAL OF DISCHARGE. IT IS ANTIPCATED THAT PT WILL BE ABLE TO RETURN TO HIS INDEPENDENT LIVING APARTMENT AT [facility] AND [facility] HOME HEALTH SERVICES WITH [facility] . CLINICAL UPDATES SENT TO TODAY. NURSE TO SPEAK WITH DR. YOUNGER ABOUT ORDERING PT AND OT TO [facility].
[2019-08-29 15:55] VITALS: BP 128/81
--- NOTE | 2019-08-29 17:29 | NUR ---
PT A&OX4. TRANSFERS WITH ASSIST X1 TO [facility]. IV INFUSING FLUIDS IN R WRIST W/O COMPS. XANAX ORDERED FOR ANXIETY. PT IS PLEASANT. PT/OT ORDERED FOR TOMORROW. WILL CONT POC.
[2019-08-29 19:20] VITALS: BP 108/73
[2019-08-30 04:33] VITALS: BP 106/81
--- NOTE | 2019-08-30 05:38 | NUR ---
RECIEVED CARE OF THIS PATIENT [id number]. PATIENT ALERT AND ORIENTED X4. UP WITH ASSIST TO BATHROOM. C/O PAIN. SCHEDULED MED GIVEN. IV IN LAC PATENT WITH FLUIDS INFUSING. REMAINS IN ISO FOR S-DIFF BUT HAS HAD ONLY 1 BM THIS SHIFT. PATIENT STATES WENT FROM [place] TO [place]. SLEPT OFF AND ON DURING NIGHT.
[2019-08-30 08:11] VITALS: BP 112/82
--- NOTE | 2019-08-30 10:25 | NUR ---
PT CARE ASSUMED AT 0700. A&Ox4. PT UP TO THE BEDSIDE FOR BREAKFAST. CONTINUES TO USE THE URINAL EVEN THOUGH HE HAS BEEN ENCOURAGE TO GO TO THE BATHROOM. CONTINUES TO COMPLAIN OF HIS ABDOMEN HURTING. ISOLATION MAINTAINED. SMALL STOOL THIS MORNING. ABDOMEN HARD AND HYPOACTIVE. IV PATENT WITH NO REDNESS OR EDEMA. IV FLUIDS INFUSING. FALL PROTOCOL IN PLACE. CALL LIGHT IN REACH.
--- NOTE | 2019-08-30 15:13 | NUR ---
PT IS PROGRESSING TOWARD GOAL OF DISCHARGE. OT SAW PT AND DISCHARGED HIM INDICATING THAT PT IS AT PLOF WITH ADLS. AWAITING PT EVAL. IT APPEARES THAT PT WILL LIKELY BE MEDICALLY STABLE TO RETURN [place] [facility] LIKELY TOMORROW.
[2019-08-30 17:03] VITALS: BP 111/76
[2019-08-30 19:27] VITALS: BP 127/81
[2019-08-31 03:31] VITALS: BP 109/74
--- NOTE | 2019-08-31 04:02 | NUR ---
ASSUMED PT CARE AT APPROX 1900.PT ALERT AND AWAKE.PT DENIED PAIN SO FAR. NO BM NOTED SO FAR,PT CONCERNED ABOUT IT.PT CONT ON IVF AND PO VANCO ORDERED.PT RESTING ON HIS BED AT THIS TIME.FALL AND ISOLATION PRECAUTIONS IN PLACE,CALL LIGHT WITHIN REACH.
[2019-08-31 08:38] VITALS: BP 118/84
--- NOTE | 2019-08-31 08:52 | NUR ---
PATIENT RESTING IN BED WATCHING TV TOOK AM MEDS EATING BREAKFAST
[2019-08-31 12:38] LABS: ABSOLUTE NEUTROPHILS 5.9 thou/uL (1.4-8.2); BASOPHILS 0.7 % (0.0-2.0); EOSINOPHILS 3.8 % (0.0-3.0); HEMATOCRIT 36.7 % (42.0-52.0); HEMOGLOBIN 12.4 gm/dL (14.0-18.0); LYMPHOCYTES 25.7 % (24.0-44.0); MCHC 33.8 g/dL (28.0-37.0); MCV 88.5 fL (80.0-100.0); MONOCYTES 7.9 % (1.0-8.0); PLATELET COUNT 184 thou/uL (150-400); POLYS 61.9 % (36.0-66.0); RBC 4.15 mil/uL (4.50-6.00); RDW 15.3 % (10.5-14.5); WBC 9.6 thou/uL (4.0-11.0)
[2019-08-31 12:52] LABS: ALBUMIN 3.1 g/dL (3.4-5.0); CALCIUM 8.2 mg/dL (8.5-10.1); POTASSIUM 4.1 mmol/L (3.5-5.1); TOTAL BILIRUBIN 0.3 mg/dL (<0.1-1.0); TOTAL PROTEIN 6.4 g/dL (6.4-8.2)
[2019-08-31 15:47] VITALS: BP 98/68
[2019-08-31 15:50] VITALS: BP 98/68
--- NOTE | 2019-08-31 15:51 | NUR ---
SHOULD DR. YOUNGER ROUND AND DETERMINE THAT PT PT IS MEDICALLY STABLE TO DISCHARGE BACK TO HIS INDEPENDENT LIVING APARTMENT AT [facility] TODAY AND [facility] HOME HEALTH SERVICES. PLEASE FAX FINAL HOME HEALTH DC ORDERS TO [facility] AT . PT MAY NEED TRANSPORT HOME PLEASE CALL [facility] AT AND PROVIDE PT'S ADDRESS AT [facility].
--- NOTE | 2019-08-31 18:25 | NUR ---
PT RESTING IN BED ALERT XS 4. PT'S IV WAS PULLED OUT AND DR. YOUNGER HERE TO SEE PATIENT STATED PT DID NOT NEED IV PUT BACK. AWAITING C-DIFF TEST RESULTS SO PATIENT CAN GO BACK TO [facility].
[2019-08-31 19:09] VITALS: BP 105/70
--- NOTE | 2019-09-01 03:18 | NUR ---
PT CARE ASSUMED AT 1900 WITH PT IN BED WATCHING TV.PT IS ALERT AND ORIENTED X4.NO IV ACCESS AND IV FLUID D/C.PT IS ON ISOLATION FOR CDIFF AND DIDNOT HAVE A BM 08/31/19 AND THIS SHIFT PER PT.PT USES URINAL.PT IS ON SCHEDULE METHADONE FOR PAIN MANAGEMENT AND RATES PAIN 5/10.PT ON SUPPLEMENT WITH EACH WILL.WILL CONTINUE TO MONITOR
[2019-09-01 03:35] VITALS: BP 120/78
[2019-09-01 07:24] VITALS: BP 114/83
[2019-09-01 07:45] VITALS: BP 120/69
[2019-09-01] MEDS ORDERED: METHADONE HCL 110 MG PO (13:59)
[2019-09-01] MEDS ORDERED: ALPRAZOLAM 0.50.5 M1 PO (13:59)
[2019-09-01] MEDS ORDERED: FIRVANQ50 MG/1 ML PO (13:59)
[2019-09-01 15:19] VITALS: BP 98/68
--- NOTE | 2019-09-01 16:07 | NUR ---
Received awake on bed. Due medications given as prescribed, able to swallow meds w/o difficulty. On room air. Vital signs stable. A+Ox4. On regular diet- tolerating well; no nausea, no vomiting and no abdominal pain noted. Continent of bowel and bladder, able to use urinal- output measured and recorded accordingly. No bowel movment today- Dr Tovar informed. No IV access- physician aware. Assisted in ADLs. Falls bundle in place. Pt seen by Dr Tovar this PM, discharge orders made. Discharge instructions, follow up schedule and prescription given and instructed. Forms signed. Transport has been set up at 5:30pm-6pm as per CM.
--- NOTE | 2019-09-01 16:31 | NUR ---
PT TO DC BACK TO [facility] THIS DAY. 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 ORDERS FAXED TO [facility] . NO OTHER CM INTERVENTION INDICATED. CASE CLOSED.
== END 2019-09-01 17:35 | disposition home health service (06) | DRG 371 ==
LOC: ER 16:03 → EROBS 18:24 → 4S 18:24 → 3W 19:33 → 4S 08-27 23:34
PROVIDERS: Internal Medicine; Physician Assistant; ADMIT Family Medicine
DX: A04.72 Enterocolitis due to Clostridium difficile, not specified as recurrent (principal); E43 Unspecified severe protein-calorie malnutrition; B19.10 Unspecified viral hepatitis B without hepatic coma; G40.909 Epilepsy, unspecified, not intractable, without status epilepticus; I10 Essential (primary) hypertension; G89.29 Other chronic pain; F41.9 Anxiety disorder, unspecified; F32.9 Major depressive disorder, single episode, unspecified; Z96.651 Presence of right artificial knee joint; W18.39XA Other fall on same level, initial encounter; S09.90XA Unspecified injury of head, initial encounter; E87.6 Hypokalemia; M54.5 Low back pain; E55.9 Vitamin D deficiency, unspecified; D64.9 Anemia, unspecified; Z79.2 Long term (current) use of antibiotics; Y93.89 Activity, other specified; Z79.891 Long term (current) use of opiate analgesic; Z87.440 Personal history of urinary (tract) infections; Z79.899 Other long term (current) drug therapy; Z88.5 Allergy status to narcotic agent; Z88.2 Allergy status to sulfonamides; Z88.8 Allergy status to other drugs, medicaments and biological substances; Y92.012 Bathroom of single-family (private) house as the place of occurrence of the external cause; Z68.20 Body mass index [BMI] 20.0-20.9, adult; Y99.8 Other external cause status
CPT/HCPCS: 10102; 10879

== ENCOUNTER 2019-09-03 04:24 | Inpatient (IN) | payer OTHER ==
[~2019-09-03] VITALS: Ht 177.8 cm; Wt 69.7 kg
[~2019-09-03 04:24] MED LIST changes: +ALPRAZOLAM 0.50.5 M1 PO; +FIRVANQ50 MG/1 ML PO; +METHADONE HCL 110 MG PO
[2019-09-03 04:26] VITALS: BP 126/80
[2019-09-03 04:51] LABS: ABSOLUTE NEUTROPHILS 6.9 thou/uL (1.4-8.2); BASOPHILS 0.7 % (0.0-2.0); EOSINOPHILS 2.9 % (0.0-3.0); HEMATOCRIT 35.9 % (42.0-52.0); LYMPHOCYTES 14.6 % (24.0-44.0); MCH 29.7 pg (26.0-34.0); MCHC 33.5 g/dL (28.0-37.0); MCV 88.8 fL (80.0-100.0); PLATELET COUNT 176 thou/uL (150-400); POLYS 74.8 % (36.0-66.0); RBC 4.04 mil/uL (4.50-6.00); RDW 15.6 % (10.5-14.5); WBC 9.2 thou/uL (4.0-11.0)
[2019-09-03 05:05] LABS: ANION GAP 8 mmol/L (7-16); BUN 43 mg/dL (7-18); CALCIUM 8.4 mg/dL (8.5-10.1); CHLORIDE 100 mmol/L (98-107); CO2 30 mmol/L (21-32); CREATININE 1.5 mg/dL (0.7-1.3); GLUCOSE 95 mg/dL (74-106); POTASSIUM 4.7 mmol/L (3.5-5.1); SODIUM 138 mmol/L (136-145)
[2019-09-03 05:16] LABS: ALBUMIN 3.5 g/dL (3.4-5.0); DIRECT BILIRUBIN 0.2 mg/dL (<0.1-0.2); LIPASE 54 U/L (73-393); SGOT 23 U/L (15-37); SGPT 16 U/L (30-65); TOTAL BILIRUBIN 0.7 mg/dL (<0.1-1.0); TOTAL PROTEIN 7.2 g/dL (6.4-8.2); TROPONIN-I <0.06 ng/mL (<0.06)
--- NOTE | 2019-09-03 06:00 | NUR ---
LETTING PT SLEEP, DR SAID TO CHECK ORTHO WHEN READY TO TRANSPORT TO THE FLOOR
[2019-09-03 06:13] VITALS: BP 115/74
[2019-09-03 06:37] VITALS: BP 112/82
[2019-09-03 06:40] LABS: URINE BILIRUBIN NEGATIVE (Negative); URINE BLOOD NEGATIVE (Negative); URINE CLARITY CLEAR; URINE COLOR YELLOW; URINE GLUCOSE-RANDOM* NEGATIVE (Negative); URINE KETONES NEGATIVE (Negative); URINE LEUKOCYTES-REFLEX NEGATIVE (Negative); URINE NITRITE-REFLEX NEGATIVE (Negative); URINE PROTEIN (DIPSTICK) NEGATIVE (Negative); URINE SPECIFIC GRAVITY 1.025 (1.005-1.035); URINE UROBILINOGEN 0.2 E.U./dl (0.2-1.0)
[2019-09-03 07:04] VITALS: BP 131/66
--- NOTE | 2019-09-03 11:19 | EKG ---
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 : 1955 Requested By: Bette Maldonado Order Number: [id number] MD: Mateo Roldan Measurements Intervals [place] Rate: 60 P: 35 CO: 161 QRS: -37 QRSD: 105 T: 31 QT: 422 QTc: 422 Interpretive Statements Sinus rhythm Left axis deviation Abnormal R-wave progression, early transition Compared to ECG 08/25/2019 16:53:33 No significant change was found Electronically Signed On 09-03-2019 11:18:27 CDT by Mateo Roldan [email or web address] <ELECTRONICALLY SIGNED> By: Mateo Roldan MD, FAC 09/03/19 1118 0443 0443 Mateo Roldan MD, FAC /EPI
[2019-09-03 15:37] VITALS: BP 115/70
--- NOTE | 2019-09-03 18:46 | NUR ---
PATIENT ADMITTED FROM ER THIS AM. FELL X 2, ALSO ACUTE BACK PAIN. PATIENT ALERT AND ORIENTED, WITH SLIGHT CONFUSION. PATIENT HAS LEFT FOREARM IV IN PLACE, WITH D51/2 NS WITH 20 KCL AT 75CC/HR. THIS RN NOTIFIED DR WILDE FOR ORDERS. PATIENT IN ISOLATION FOR C-DIFF. VOIDS PER URINAL. WILL CONTINUE TO MONITOR.
[2019-09-03 19:21] VITALS: BP 116/70
[2019-09-04 03:30] VITALS: BP 128/72
--- NOTE | 2019-09-04 03:36 | NUR ---
PT CARE ASSUMED AT 1900 WITH PT IN BED.PT IS ALERT AND ORIENTED X3.PT IS FORGETFULL.PT IS UP WITH ASSIST.PT HAS CHRONIC BACK PAIN AND PAIN MANAGED WITH METHADONE.PT IV ACCESS ON LT FA WITH D5 0.45NS @75.PT USES A URINAL AND SOMETIMES INCONTINENT TO BLADDER.WILL CONTINUE TO MONITOR PER POC
[2019-09-04 07:11] VITALS: BP 125/72
[2019-09-04 09:20] LABS: CALCIUM 8.7 mg/dL (8.5-10.1); CREATININE 1.1 mg/dL (0.7-1.3)
[2019-09-04 09:22] LABS: ABSOLUTE NEUTROPHILS 14.3 thou/uL (1.4-8.2); BASOPHILS 0.4 % (0.0-2.0); EOSINOPHILS 1.1 % (0.0-3.0); HEMATOCRIT 32.1 % (42.0-52.0); HEMOGLOBIN 10.9 gm/dL (14.0-18.0); LYMPHOCYTES 4.1 % (24.0-44.0); MCH 29.9 pg (26.0-34.0); MCHC 33.9 g/dL (28.0-37.0); MCV 88.1 fL (80.0-100.0); MONOCYTES 3.2 % (1.0-8.0); PLATELET COUNT 167 thou/uL (150-400); POLYS 91.2 % (36.0-66.0); RBC 3.64 mil/uL (4.50-6.00); RDW 15.7 % (10.5-14.5); WBC 15.7 thou/uL (4.0-11.0)
--- NOTE | 2019-09-04 12:38 | H ---
[facility] [place] [address] HISTORY AND PHYSICAL Name: RUMA LOYA Room #: 442-P ADM IN M.R.#: [id number] Admission: 09/03/19 Attend Phys: Scott Tovar MD, FAA Discharge: Date of : 57 Report #: [id number] THIS REPORT FOR: cc: Scott Tovar MD [facility] FACEP Scott Tovar MD [facility] FACE Scott Tovar MD [facility] FACE ~ CC: Hudson Tovar DATE OF SERVICE: 09/03/2019 CHIEF COMPLAINT: Debility; falls; volume depletion. HISTORY OF PRESENT ILLNESS: The patient is a 64-year-old white male, patient of mine who was just discharged from here 2 days ago after 1 week in hospital with C. diff colitis. His diarrhea resolved while in hospital. His white count normalized today. He fell twice at his independent living environment at [facility]. He was evaluated in the Emergency Room and creatinine was 1.5. He is admitted to my service. Medications were continued and IV fluids initiated. PAST MEDICAL HISTORY, SOCIAL HISTORY, FAMILY HISTORY: All the same as dictated in the last weeks history and physical. REVIEW OF SYSTEMS: Positive for debility, fall. He says he blacked out, falls x 2 and volume depletion. He has had no chest pain or shortness of breath. He said he had a loose stool yesterday. Remainder of system review is negative. OBJECTIVE: VITAL SIGNS: Temperature is 36.3, pulse 64, respirations 11, blood pressure 115/74, he is 95% oxygenating on room air. GENERAL: He is in no acute distress. Speaks full sentences, answers questions appropriately. HEENT: Pupils equal, round, reactive to light and accommodation. Extraocular muscles intact. Pharynx unremarkable except for mildly dry mucous membranes. COR: S1, S2. CHEST: Clear. ABDOMEN: Soft, nontender. EXTREMITIES: No edema. NEUROLOGIC: No focal neurologic deficits. LABORATORY DATA: White count is 9.2, hemoglobin 12.0, hematocrit 35.9, platelets 176,000. Serum chemistry: Sodium 138, potassium 4.7, chloride 100, CO2 of 30, BUN 43, creatinine 1.5. Glucose 94, calcium is 8.4, total bilirubin 0.7, direct bilirubin 0.2, AST 23, ALT 16, alkaline phosphatase 98. Troponin less than 0.06. Total protein 7.2, albumin 3.5, lipase 54. Urinalysis was normal. [address] [address] HISTORY AND PHYSICAL Name: RUMA LOYA Room #: 442-P [facility]#: [id number] Admission: 09/03/19 Attend Phys: Scott Tovar MD, FAAF Discharge: Date of : 57 Report #: [id number] ASSESSMENT: Debility, volume depletion, acute kidney injury, falls, C. diff colitis, seizure disorder, chronic back pain, anxiety. PLAN: Admit to hospital, IV fluid rehydration. Continue current medications. Consult rehabilitation medicine. <ELECTRONICALLY SIGNED> By: Scott Tovar MD, MAIRA, FACEP 09/04/19 1238 1256 1319 Scott Tovar MD, MAIRA, FACEP /nt
--- NOTE | 2019-09-04 14:07 | NUR ---
PT ADMITTED RELATED TO FELL X 2 AND ACUTE BACK PAIN. CM REVIEWED CHART AND SPOKE WITH CARE TEAM. PT IS FAMILIAR TO CM FROM [facility] PREVIOUS ADMISSION. PT HAD DISCHARGED BACK TO [facility] WITH [facility] ON Wednesday09/01/19 [facility]IA [facility]. CM CALLED AND SPOKE WITH PT THIS AFTERNOON AND HE INDICATED THAT HE HAD GOTTEN SICK AGAIN AND CONFIRMED TWO FALLS UPON HIS RETURN TO HIS APARTMENT. CM INDICATED THAT PT, OT, AND 5N WOULD ASSESS PT AND DISCUSS NEEDS UPON DC. CM ALSO PROVIDED PT WITH A [facility] SNF LIST FOR REVIEW. CM TO FOLLOW INDICATED WITH DC PLANNING.
[2019-09-04 16:54] VITALS: BP 99/68
--- NOTE | 2019-09-04 18:18 | NUR ---
ASSUMED CARE OF THE PT AT 0700. PT CONTINUES TO GET UP AND GO TO BATHROOM, EDUCATED PT ON FALL RISKS AND PT STILL CONTINUED TO GET UP. NO C/O PAIN. L FOREARM DRY AND INTACT. BM TODAY. PT USES URINAL. PT IS INCONTINENT OF BOWEL. CALL LIGHT IS WITHIN REACH AND BED IN THE LOWEST POSITION. WILL CONTINUE TO MONITOR THE PT.
[2019-09-04 20:18] VITALS: BP 94/62
--- NOTE | 2019-09-05 02:43 | NUR ---
PT CARE ASSUMED WITH PT IN BED AT 1900.PT IS A/O X3.PT IS UP WITH X1 ASSIST.IV ACCESS ON LFA SL.PT USES URINAL .PT REQUESTED FOR XANAX AT BEDTIME.PT APPEARED TO BE IN NO ACUTE PAIN.FALL PREC IN PLACE.WILL CONTINUE TO MONITOR PER POC
[2019-09-05 04:48] VITALS: BP 106/60
[2019-09-05 05:54] LABS: ABSOLUTE NEUTROPHILS 6.8 thou/uL (1.4-8.2); BASOPHILS 0.3 % (0.0-2.0); EOSINOPHILS 2.8 % (0.0-3.0); HEMATOCRIT 28.6 % (42.0-52.0); HEMOGLOBIN 9.9 gm/dL (14.0-18.0); LYMPHOCYTES 16.6 % (24.0-44.0); MCH 30.2 pg (26.0-34.0); MCHC 34.5 g/dL (28.0-37.0); MCV 87.4 fL (80.0-100.0); MONOCYTES 3.9 % (1.0-8.0); PLATELET COUNT 183 thou/uL (150-400); POLYS 76.4 % (36.0-66.0); RBC 3.27 mil/uL (4.50-6.00); RDW 15.7 % (10.5-14.5); WBC 8.9 thou/uL (4.0-11.0)
[2019-09-05 06:13] LABS: ALBUMIN 2.7 g/dL (3.4-5.0); CALCIUM 8.4 mg/dL (8.5-10.1); POTASSIUM 4.9 mmol/L (3.5-5.1); TOTAL BILIRUBIN 0.6 mg/dL (<0.1-1.0); TOTAL PROTEIN 6.3 g/dL (6.4-8.2)
[2019-09-05 08:13] VITALS: BP 102/70
--- NOTE | 2019-09-05 16:04 | NUR ---
CM FOLLOWED UP WITH PT AND HE ASKED THAT REFERRALS BE SENT TO [facility] FOR REVIEW FOR POSSIBLE ADMISSION. CM TO FOLLOW INDICATED WITH DC PLANNING.
--- NOTE | 2019-09-05 16:18 | NUR ---
ASSUMED CARE OF THE PT AT 0700. PT IS A STANDBY ASSIST WITH GAITBELT TO THE TOILET. IV IN L FOREARM IS DRY AND INTACT. PT ONLY WANTS CHOCOLATE SUPPLEMENTS. BM TODAY. PT IS ON ISOLATION FOR C DIFF. NO C/O PAIN. FALL PRECAUTIONS IN PLACE, BED IN THE LOWEST POSITION AND CALL LIGHT IS WITHIN REACH. GAVE LIST OF REHABS TO PT FOR CM. PT CAN TURN HIMSELF. WILL CONTINUE TO MONITOR THE PT.
[2019-09-05 17:00] VITALS: BP 98/60
[2019-09-05 19:37] VITALS: BP 98/60
--- NOTE | 2019-09-06 01:58 | NUR ---
ASSUMED PT CARE AT 1900. PT REPORTS PAIN IN BACK, MANAGED WITH PO PAIN MEDS. NO DIARRHEA OVERNIGHT. BREAKDOWN ON BUTTOCKS NOTED - BARRIER CREAM APPLIED. ORIENTED X4 AT START OF SHIFT. AROUND 0030, PT CALLED ASKING FOR HIS NIGHTTIME MEDS, THIS RN REMINDED HIM THAT HE ALREADY GOT THEM AND HE STATES "I THINK IM JUST TIRED." PT IS ANTICIPATING DISCHARGE TODAY.
[2019-09-06 04:33] VITALS: BP 106/73
[2019-09-06 07:55] VITALS: BP 98/74
--- NOTE | 2019-09-06 12:17 | NUR ---
FAXED REFERRAL TO [facility] RECEIVED CONFIRMATION AND LEFT MSG WITH KAY IN ADM. FAXED REFFERRAL TO [facility] SPOKE WITH GERARDO IN ADM HE RECEIVED REFERRAL AND IS OUT OF NETWORK WITH INSURANCE. DP TO FOLLOW.
--- NOTE | 2019-09-06 14:36 | NUR ---
REFERRALS WERE SENT TO [facility], AND [facility] YESTERDAY. [facility] IS OUT OF NETWORK. STILL WAITING ON RESPONSE FROM [facility]. REFERRAL ALSO BEING SENT TO [facility]. FOLLOWING REGARDING DC PLANNING.
[2019-09-06 15:52] VITALS: BP 96/68
--- NOTE | 2019-09-06 15:56 | NUR ---
FAXED REFERRAL TO [facility] RECEIVED CONFIRMATION AND LEFT MSG WITH JESSICA IN ADM. DP TO FOLLOW.
--- NOTE | 2019-09-06 16:20 | NUR ---
PT A&OX4. IV INTACT IN L FA. PT AMBULATED WITH PT TODAY AND SAT IN CHAIR FOR A LONG PERIOD OF TIME. BUTTOCKS ARE RED THOUGH NOT OPEN. CALL LIGHT W/I REACH, CALLS OUT APPROPRIATEY. WILL CONT POC.
[2019-09-06 19:06] VITALS: BP 101/68
--- NOTE | 2019-09-07 02:57 | NUR ---
ASSUMED PT CARE AROUND 1914. AXOX4. CALM AND COOPERATE AT THIS TIME. VSS. ISO FOR ACTIVE C.DIFF TX. NO S/S ACUTE DISTRESS NOTED OR REPORTED AT THIS TIME. WILL CONT TO MONITOR FOR ANY CHANGES IN CONDITION.
[2019-09-07 03:39] VITALS: BP 109/61
[2019-09-07 07:45] VITALS: BP 91/56
[2019-09-07 15:43] VITALS: BP 101/66
--- NOTE | 2019-09-07 16:01 | NUR ---
PLANS FOR DC TO SK[facility]ED REHAB [facility] TODAY. DR. YOUNGER HERE LATE AFTERNOON FOR DC ORDERS. SPOKE WITH ELIDIA AT [facility] ADMISSIONS AND CONFIRMED ABLE TO ACCEPT LATE AFTERNOON AND W/C VAN PICK IS [phone]. ERWIN MIGUEL RN CM SPOKE WITH PT TODAY AND PT AGREEABLE TO DC TODAY TO [facility] FOR [facility]. SPOKE WITH WINSTON HANSON AND PT WILL RECEIVE MEDS FOR THIS EVENING PRIOR TO DC [facility] WON'T BE ABLE TO GET MEDS THIS LATE IN DAY. CHART COPIED. RN GIVEN # FOR REPORT [phone] AND FAX FOR DC ORDERS SUMMARY AND COVID FORM REQUESTED BY [facility] [phone]. DC PROJECT DIRECTOR TO NOTIFY FAMILY OF DC PLANS AND FACILITATE DC NEEDED.
--- NOTE | 2019-09-07 16:22 | NUR ---
PT DISCHARGING TODAY TO [facility] OF [facility] FAXED DC ORDERS/SUMMARY TO FACILITY RECEIVED CONFIRMATION AND LEFT MSG WITH ELIDIA IN ADM. PT TRANSPORT ARRANGED FOR 1714 LEFT MSG WITH PT'S MOTHER OF DC AND TIME OF TRANSPORT ALSO LEFT MY PH # TO CONFIRM SHE RECEIVED MSG. UNIT NOTIFIED AND CHART COPY PER US. RN TO CALL REPORT TO [phone].
--- NOTE | 2019-09-08 11:04 | HC ---
[facility] [place] [address] CONSULTATION Name: RUMA LOYA Room #: 442-P [facility] IN M.R.#: [id number] Admission: 09/03/19 Attend Phys: Scott Tovar MD, FAA Discharge: 09/07/19 Date of : 57 Report #: [id number] THIS REPORT FOR: cc: Scott Tovar MD [facility] Scott Tovar MD [facility] FACE Hudson Taylor MD ~ CC: Scott Tovar DATE OF SERVICE: 09/06/2019 HISTORY OF PRESENT ILLNESS: The patient is a 64-year-old white male who was just discharged, 09/01/2019 after approximately 1 week stay in the hospital with C. diff colitis. His diarrhea was noted to have resolved. His white blood cell count had normalized. He was discharged back to his apartment. He had a fall x 2 at his independent living apartment at [facility]. He was readmitted. Noted to have some renal insufficiency with a creatinine of 1.5. His creatinine had been 1.0 on 08/31/2019. The patient was noted to be debilitated, have decreased gait stability and acute renal insufficiency. We are seeing him in rehabilitation medicine consultation. PAST MEDICAL HISTORY: Includes seizure disorder, chronic low back pain, on methadone bipolar affective disorder, chronic anxiety, right total knee replacement, hepatitis B. MEDICATIONS: Please see the full medication listing. ALLERGIES: As noted. SOCIAL HISTORY: Apartment alone, did not utilize a gait aid. There are 3 steps in. Noted to have a significant other. REVIEW OF SYSTEMS: No current complaints of chest pain, shortness of breath or abdominal discomfort. PHYSICAL EXAMINATION: GENERAL: A 64-year-old white male in no obvious distress. VITAL SIGNS: Last recorded temperature 97.4, pulse 58, respirations 17, blood pressure 98/74. NEUROLOGIC: The patient is alert. He is pleasant, follows basic 1 step commands. HEENT: Facies are symmetric. EXTREMITIES: He has functional range of motion of both upper extremities. Strength is grade 4-/5. DTRs are trace to 1. Lower extremities, no focal calf swelling, functional range of motion, strength is grade 4-/5. He is working in functional mobility with sit to stand, min assist. Gait is up to 250 feet, but he needs mod assist and has some path deviation and instability. [facility] [address] [place] [address] CONSULTATION Name: RUMA LOYA Room #: 442-P [facility] IN M.R.#: [id number] Admission: 09/03/19 Attend Phys: Scott Tovar MD, FAAF Discharge: 09/07/19 Date of : 57 Report #: [id number] extremity dressing is min assist. ASSESSMENT: A 64-year-old white male with the following problems: 1. Medical complexity with generalized debilitation. 2. Gait instability with history of falls. 3. Acute renal insufficiency that has improved. 4. Medical complex with generalized debilitation. 5. Recent Clostridium difficile. 6. History of bipolar affective disorder. 7. Chronic low back pain, on methadone. 8. History of seizure disorder. PLAN: It is my understanding that the patient is out of network for the acute [address] [place] [address] inpatient rehabilitation simon. Would agree with checking with insurance regarding rehab therapy options for him. Would agree that he would benefit from some further therapies and maximizing his functional independence prior to returning back to his own apartment. Case management is involved. Thank you for asking us to assist in this patient's care. <ELECTRONICALLY SIGNED> By: Hudson Taylor MD 09/08/19 1104 [id number] Hudson Taylor MD /nt
== END 2019-09-07 18:10 | DRG 371 ==
LOC: ER 04:24 → 4S 05:50 → EROBS 05:50 → 4S 06:58
PROVIDERS: Emergency Medicine; ADMIT Family Medicine
DX: A04.72 Enterocolitis due to Clostridium difficile, not specified as recurrent (principal); E43 Unspecified severe protein-calorie malnutrition; N17.9 Acute kidney failure, unspecified; R53.81 Other malaise; E86.9 Volume depletion, unspecified; G89.29 Other chronic pain; F41.9 Anxiety disorder, unspecified; F32.9 Major depressive disorder, single episode, unspecified; I10 Essential (primary) hypertension; Z96.651 Presence of right artificial knee joint; E86.0 Dehydration; E87.6 Hypokalemia; G40.909 Epilepsy, unspecified, not intractable, without status epilepticus; M54.5 Low back pain; Z68.22 Body mass index [BMI] 22.0-22.9, adult; Z86.19 Personal history of other infectious and parasitic diseases; Z88.6 Allergy status to analgesic agent; Z88.2 Allergy status to sulfonamides; Z88.8 Allergy status to other drugs, medicaments and biological substances
CPT/HCPCS: 10102

== ENCOUNTER 2019-10-13 12:19 | Inpatient (IN) | payer OTHER ==
[~2019-10-13] VITALS: Ht 188 cm; Wt 77.6 kg
[2019-10-13] VITALS (24 sets, daily range): BP systolic 75–108; BP diastolic 37–70
--- NOTE | ~2019-10-13 | H ---
[facility] [place] [address] HISTORY AND PHYSICAL Name: RUMA LOYA Room #: 238-P [facility] IN M.R.#: [id number] Admission: 10/13/19 Attend Phys: Scott Tovar MD, FAAF Discharge: Date of : 57 Report #: [id number] THIS REPORT FOR: cc: Scott Tovar MD FAAFP FACEP Scott Tovar MD FAAFP FACEP Scott Tovar MD FAA FACEP ~ CC: Scott Bradley MD DATE OF SERVICE: 10/13/2019 CHIEF COMPLAINT: Pneumonia, toxic encephalopathy, acute respiratory failure. HISTORY OF PRESENT ILLNESS: The patient is a 64-year-old white male well known to me who lives in assisted living at [facility]. He has been intermittently ill over several months, problems including C. diff colitis, encephalopathy, volume depletion and falls. He fell several times prior to transfer to the Emergency Room. On the day of admission, he was found to have a developing pneumonia and basically stopped functional breathing in the Emergency Room, required emergency intubation. He is now in the Intensive Care Unit on a ventilator. He does continue to be alert and communicative with head nods. He had a profuse diarrhea 24 hours prior to transfer to the Emergency Department. PAST MEDICAL HISTORY: Chronic mid back pain; bulging disk; sacral mass removed, benign in 2006; bipolar affective disorder; anxiety; depression; hypertension; right total knee replacement; status colonoscopy; phantom seizure 2016; hepatitis B; pelvic injury; hip surgery; anemia; C. diff in the month of August; recent falls. MEDICATIONS: Potassium 20 mEq 1 p.o. b.i.d., vitamin D 1000 international units daily, methadone 10 mg 1 p.o. b.i.d., alprazolam 0.5 mg 1 p.o. b.i.d. p.r.n. anxiety, Effexor 150 mg p.o. daily, trazodone 150 mg p.o. at bedtime, Depakote ER 500 mg 1 p.o. b.i.d., metoprolol tartrate 50 mg 1 p.o. b.i.d. ALLERGIES: SULFA, CODEINE, HYDROCODONE and TRAMADOL. FAMILY HISTORY: Noncontributory. SOCIAL HISTORY: He has a mother in the [place] area. Nonsmoker. Lives close by to [facility] at [facility] in [facility]. He is a nondrinker. Denies illicit drug use. 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 REVIEW OF SYSTEMS: Include diarrhea, falls, mental confusion and hypopnea and apnea. Further review of systems not able to be performed with the patient on [facility] [address] [place] [address] HISTORY AND PHYSICAL Name: RUMA LOYA Room #: 238-P ADM IN M.R.#: [id number] Admission: 10/13/19 Attend Phys: Scott Tovar MD, FAAF Discharge: Date of : 57 Report #: [id number] ventilator. OBJECTIVE: VITAL SIGNS: Temperature is 36.7, pulse 69, respirations 14, blood pressure 88/52, pulse ox 100%. GENERAL: He is on a ventilator in the ICU, in no acute distress. Nods head appropriately to questions. COR: S1, S2. CHEST: Few coarse breath sounds, but bilateral equal air movement, well ventilated. ABDOMEN: Soft, nontender. EXTREMITIES: No cyanosis, clubbing or edema. NEUROLOGIC: Sedated on light sedation and also on pressor support with Levophed. LABORATORY EVALUATION: CBC: White count is 9.1, hemoglobin 10.0, hematocrit 28.9, platelets 224,000. Serum chemistry: Sodium 134, potassium 3.0, chloride 100, CO2 of 28, BUN 28, creatinine 1.5. RADIOGRAPHIC EVALUATION: CT head, no acute intracranial abnormalities, age-related findings including symmetric cerebral and cerebellar volume loss, atherosclerosis, chronic central white matter microvascular ischemia. CT neck, no cervical fracture detected, degenerative changes as described in the report resulting in severe left neural foraminal narrowing at C5-C6 and C6-C7. CT scan chest, abdomen and pelvis, no evidence of aortic dissection, aneurysm or dilatation of stenosis, left basilar infiltrate, likely representing pneumonia was noted. ASSESSMENT: Pneumonia, acute respiratory failure, toxic encephalopathy, acute kidney injury, hypokalemia, hyponatremia, volume depletion, diarrhea, seizure disorder, and anemia. PLAN: Admit to hospital and placed in ICU on vent, antibiotics for pneumonia instituted in the Emergency Room, ventilator support, pressor support. Consult placed to geothermal electrical engineer, infrastructure analyst. By: 1510 1550 Scott Tovar MD, FAAFP, FACEP /nt
--- NOTE | ~2019-10-13 | EMS ---
[address] [address] EMS Patient Care Report Name: RUMA LOYA Room #: PRE M.ROctavia#: [id number] Admission: Attend Phys: Discharge: Date of : 57 Report #: [id number] THIS REPORT FOR: //name// Report Transmitted: 10/13/2019 12:02 EMS Care Summary [place], [place]/[facility] Incident [id number] @ 10/13/2019 11:44 Incident Location [id number] [place] [address] Patient RUMA LOYA Male, 64 Years 1955 Patient Address [id number] [place] [address] [address] [place] [address] Patient History Hypertension (HTN),Anxiety, Patient Allergies No known allergies, Patient Medications Xanax, Metoprolol, Chief Complaint FALL/LIGHTHEADED Disposition Transported No Lights/[place] Dispatch Reason Falls Transported To [facility] Narrative MEDIC 28 AND PUMPER 45 WERE DISPATCHED TO A LONG-TERM FOR A 64 YEAR OLD MALE PT WHO FELL. EMS DONNED GLOVES AND FACE MASKS AND ENTERED THE SCENE. PT CONTACT WAS MADE WITH STAFF ON SCENE. STAFF STATED THEY CAME TO CHECK ON HIM AND HE WAS [address] [address] EMS Patient Care Report Name: RUMA LOYA Room #: PRE Roe.#: [id number] Admission: Attend Phys: Discharge: Date of : 57 Report #: [id number] LAYING IN THE BATHROOM CONSCIOUS. PT WAS ALERT AND ORIENTATED TIMES 4 AND STATED HE FELL 3 TIMES THIS MORNING WALKING TOWARD THE BATHROOM AND LOST CONSCIOUSNESS AFTER THE 3RD FALL. PT HAD AN INCH LONG ABRASION ON HIS FOREHEAD WITH NO BRUISING. PT DENIED ANY PHYSICAL PAIN. PT STATED HE HAD CHEST PAIN THE PREVIOUS NIGHT AND WAS STILL HAVING IT. PT STATED CHEST PAIN HASN'T CHANGED OR RADIATED. PT HAD A C COLLAR PLACED ON HIS NECK AND WAS ASSISTED TO A STANDING POSITION. PT DENIED BEING LIGHTHEADED. PT WAS PLACED ONTO THE COT IN A POSITION OF COMFORT AND WAS SECURED VIA 2 SEATBELTS. PT WAS TRANSPORTED TO AND LOADED INTO THE AMBULANCE. PT WAS HOOKED UP TO THE MONITOR INCLUDING A 12 LEAD WITH NO SIGNIFICANT FINDINGS. PT HAD A GCS OF 15. PT WAS TRANSPORTED TO [facility] PER PT CHOICE. EN ROUTE PT BECAME MORE LIGHTHEADED AND WEAK. PT NEVER LOST CONSCIOUSNESS EN ROUTE TO THE RECEVING FACILITY. A STROKE ASSESSMENT WAS PERFORMED AND IT WAS NEGATIVE. PT WAS TAKEN TO ER ROOM 9 WHERE TRANSPORT REPORT WAS GIVEN TO THE RECEIVING STAFF. ER NURSE SIGNED FOR TRANSFER OF CARE AND FOR THE PT DUE TO HIS WEAKNESS AND EMS WENT BACK INTO SERVICE. Initial Vitals @12:08P: 93,R: 13,BP: 79/51, @12:03P: 70,R: 20, @12:05P: 137,R: 16, @12:12P: 68,R: 13,CO: 1,SpO2: 83, @12:09P: 66,R: 20,CO: 1,SpO2: 96, @12:04P: 66,R: 16,NM Suspected: false @12:01P: 70,R: 20,BP: 75/50,Pain: 0/10,GCS: 15,Glucose: 294,SpO2: 95,Revised Trauma: 10, @12:13P: 67,R: 18,BP: 81/51,Pain: 0/10,GCS: 15,SpO2: 94,Revised Trauma: 11, @12:02P: 83,BP: 83/48, Assessments @11:53MENTAL:Person Oriented,Time Oriented,Event Oriented,Place Oriented,SKIN:HEENT:Eyes: Right Pupil: 3-mm,Eyes: Left Pupil: 3-mm,Head/Face: Other,Neck/Airway: No Abnormalities,LUNG SOUNDS:General: No Abnormalities,Left Upper: No Abnormalities,Right Upper: No Abnormalities,Left Lower: No Abnormalities,Right Lower: No Abnormalities,ABDOMEN:General: No Abnormalities,Left Upper: No Abnormalities,Right Upper: No Abnormalities,Left Lower: No Abnormalities,Right Lower: No Abnormalities,PELVIS//GI:No Abnormalities,EXTREMITIES:Right Arm: Weakness,Left Arm: Weakness,Right Leg: Weakness,Left Leg: Weakness,PULSE:Radial: 2+ Normal,NEURO:No Abnormalities,@12:10MENTAL:Person Oriented,Time Oriented,Event Oriented,Place Oriented,SKIN:HEENT:Eyes: Right Pupil: 3-mm,Head/Face: Other,Eyes: Left Pupil: 3-mm,Neck/Airway: No Abnormalities,LUNG SOUNDS:General: No Abnormalities,Left Upper: No Abnormalities,Right Upper: No Abnormalities,Left Lower: No Abnormalities,Right Lower: No Abnormalities,ABDOMEN:General: No Abnormalities,Left Upper: No Abnormalities,Right Upper: No Abnormalities,Left Lower: No Abnormalities,Right Lower: No Abnormalities,PELVIS//GI:No Abnormalities,EXTREMITIES:Right Leg: Weakness,Right Arm: Weakness,Left Arm: [facility] [address] [place] [address] EMS Patient Care Report Name: RUMA LOYA Room #: PRE M.R.#: [id number] Admission: Attend Phys: Discharge: Date of : 57 Report #: [id number] Weakness,Left Leg: Weakness,PULSE:NEURO:No Abnormalities, Impression Injury of Head Procedures @11:53ALS AssessmentResponse: UnchangedSucceeded@12:0412-Lead ECGResponse: UnchangedSucceeded@12:05Saline Lock 0cc (20 ga) Site: Antecubital-LeftResponse: UnchangedFailed Timeline 11:41,Call Received 11:41,Dispatch Notified 11:44,Dispatched 11:45,En Route 11:49,On Scene 11:53,At Patient 11:53,ALS Assessment,Response: UnchangedSucceeded, 12:01,BP: 75/50 M,PULSE: 70,RR: 20 R,SPO2: 95 Ox,ETCO2: ,B,PAIN: 0,GCS: 15, 12:02,BP: 83/48 M,PULSE: 83,RR: R,SPO2: Ox,ETCO2: ,BG: ,PAIN: ,GCS: , 12:03,BP: / M,PULSE: 70,RR: 20 R,SPO2: Ox,ETCO2: ,BG: ,PAIN: ,GCS: , 12:04,12-Lead ECG,Response: UnchangedSucceeded, 12:04,BP: / M,PULSE: 66,RR: 16 R,SPO2: Ox,ETCO2: ,BG: ,PAIN: ,GCS: , 12:05,Saline Lock 0cc 20 ga Site: Antecubital-Left,Response: UnchangedFailed, 12:05,BP: / M,PULSE: 137,RR: 16 R,SPO2: Ox,ETCO2: ,BG: ,PAIN: ,GCS: , 12:08,BP: 79/51 M,PULSE: 93,RR: 13 R,SPO2: Ox,ETCO2: ,BG: ,PAIN: ,GCS: , 12:08,Depart Scene 12:09,BP: / M,PULSE: 66,RR: 20 R,SPO2: 96 Ox,ETCO2: ,BG: ,PAIN: ,GCS: , 12:12,BP: / M,PULSE: 68,RR: 13 R,SPO2: 83 Ox,ETCO2: ,BG: ,PAIN: ,GCS: , 12:13,BP: 81/51 M,PULSE: 67,RR: 18 R,SPO2: 94 Ox,ETCO2: ,BG: ,PAIN: 0,GCS: 15, 12:14,At Destination 12:29,Call Closed Disclaimer v1.1 Copyright 2020 [email or web address] This EMS Care Summary contains data elements from the applicable legal record (which may be displayed differently). It is designed to provide pertinent information for the following purposes: continuity of care, clinical quality, and state data reporting. The complete legal record is available to ED staff and administrators of the receiving hospital in [employer]'s Patient Tracker. All data is provided "as is."
[2019-10-13 12:48] LABS: ABSOLUTE NEUTROPHILS 6.3 thou/uL (1.4-8.2); BASOPHILS 1.4 % (0.0-2.0); EOSINOPHILS 1.7 % (0.0-3.0); HEMATOCRIT 28.9 % (42.0-52.0); LYMPHOCYTES 17.5 % (24.0-44.0); MCH 30.8 pg (26.0-34.0); MCHC 34.6 g/dL (28.0-37.0); MCV 88.9 fL (80.0-100.0); MONOCYTES 10.5 % (1.0-8.0); PLATELET COUNT 224 thou/uL (150-400); POLYS 68.9 % (36.0-66.0); RBC 3.25 mil/uL (4.50-6.00); RDW 14.6 % (10.5-14.5); WBC 9.1 thou/uL (4.0-11.0)
[2019-10-13 12:58] LABS: ANION GAP 6 mmol/L (7-16); BUN 28 mg/dL (7-18); CHLORIDE 100 mmol/L (98-107); CO2 28 mmol/L (21-32); CREATININE 1.5 mg/dL (0.7-1.3); GLUCOSE 122 mg/dL (74-106); SODIUM 134 mmol/L (136-145)
[2019-10-13 13:08] LABS: ALBUMIN 2.9 g/dL (3.4-5.0); SGOT 27 U/L (15-37); SGPT 29 U/L (30-65); TOTAL BILIRUBIN 1.8 mg/dL (0.2-1.0); TOTAL PROTEIN 6.4 g/dL (6.4-8.2); TROPONIN-I <0.06 ng/mL (<0.06)
[2019-10-13 13:15] LABS: APTT 34.1 Seconds (24.5-32.8); INR 1.1; PROTIME 11.7 Seconds (9.3-11.4)
[2019-10-13 13:43] LABS: URINE BILIRUBIN NEGATIVE (Negative); URINE BLOOD 1+ (Negative); URINE CLARITY CLEAR; URINE COLOR YELLOW; URINE GLUCOSE-RANDOM* NEGATIVE (Negative); URINE KETONES NEGATIVE (Negative); URINE LEUKOCYTES-REFLEX NEGATIVE (Negative); URINE NITRITE-REFLEX NEGATIVE (Negative); URINE PROTEIN (DIPSTICK) NEGATIVE (Negative); URINE SPECIFIC GRAVITY <= 1.005 (1.005-1.035); URINE UROBILINOGEN 0.2 E.U./dl (0.2-1.0)
[2019-10-13 13:57] LABS: BACTERIA-REFLEX None Seen /HPF (None Seen); CASTS None Seen /LPF (None Seen); CRYSTALS None Seen /LPF (None Seen); SQUAMOUS None Seen /LPF (0-3); URINE RBC 0-2 Rare /HPF (0-2); URINE WBC-REFLEX None Seen /HPF (0-5)
--- NOTE | 2019-10-13 14:07 | EKG ---
[facility] [place] [address] ELECTROCARDIOGRAM REPORT Name: RUMA LOYA Room #: 170-9 ADM IN M.R.#: [id number] Admission: 10/13/19 Attend Phys: Scott Tovar MD, FAAF Discharge: Date of : 57 Report #: [id number] THIS REPORT FOR: cc: Scott Tovar MD FAAFP FACEP Scott Tovar MD FAA FACEP Dariela,Rome Herrera MD ~ THIS REPORT FOR: //name// [facility] ED Test Date: 2019-10-13 Test Time: 12:33:22 Pat Name: RUMA LOYA Department: Room: 170 Gender: M Diamond Blender: MARIUM : 1955 Requested By: Julian Bolanos Order Number: [id number] MD: Rome Lyle Measurements Intervals [place] Rate: 66 P: 6 MN: 165 QRS: -61 QRSD: 109 T: 39 QT: 415 QTc: 435 Interpretive Statements Sinus rhythm Left anterior fascicular block Motion artifact Abnormal R-wave progression, late transition Compared to ECG 09/23/2019 11:09:48 Electronically Signed On 10-13-2019 14:05:16 CDT by Rome Lyle [email or web address] <ELECTRONICALLY SIGNED> By: Rome Lyle MD 10/13/19 1405 1233 1233 Rome Lyle MD /EPI
--- NOTE | 2019-10-13 16:21 | NUR ---
VAT CONSULTED FOR A CL FOR THIS PT IN THE ER WITH AMS, SEPSIS, RULE OUT CVA, LINE IS MEDICALLY NECESSARY PT IS CONFUSED AND NO FAMILY AT BS, PT NEEDING IMMEDIATE INTUBATION WITH LOW SATS WELL. A 5FRTL LINE PLACED RT IJ WITH TIP IN DSVC AND OK FOR USE.
[2019-10-13 17:19] LABS: BE(vivo) -5.7 mmol/L (-2 to +3); HCO3 20.7 mmol/L (22.0-26.0); PCO2 44.4 mmHg (35.0-45.0); PO2 211.4 mmHg (80.0-100.0); sO2 99.3 % (92.0-98.0)
[2019-10-13 17:20] LABS: pH 7.286 (7.360-7.450)
--- NOTE | 2019-10-13 17:50 | NUR ---
ALETA LOYA (MOTHER) - [phone]
--- NOTE | 2019-10-13 19:59 | NUR ---
PT ADMITTED FROM ED AT 181. PT ON VENTILATOR, LEVOPHED RUNNING AT 15 MCG/MIN. DAVIS IN PLACE. OGT PLACED WITHOUT DIFFICULTY. DR KRAUSE AND DR CULVER PAGED, ORDERS RECEIVED. ASSESSMENT CHARTED. SCDS APPLIED. RESTRAINTS APPLIED. REPORT GIVEN TO PIPE FITTER HELPER.
--- NOTE | 2019-10-13 21:32 | NUR ---
1900 - SPOKE WITH GERTRUDE SORENSENING PTS CONDITION AND RECENT COVID TEST THAT CAME BACK NEGATIVE. WE WILL PLAN TO KEEP PATIENT IN ENHANCED PRECAUTIONS THROUGHOUT THE NIGHT AND IF THERE IS A CHANGE IN PATIENTS CONDITION WILL RESWAB FOR COVID. 2029 - THIS RN NOTED THAT NARCAN DRIP HAD NOT BEEN STARTED IN THE ER NOTED. PATIENT IS NOT ON ANY SEDATION. PATIENT IS LETHARGIC BUT AROUSABLE TO VERBAL STIMULATION. FOLLOWING COMMANDS APPROPRIATELY, MOVING ALL EXTREMITIES, NODDING HEAD TO YES/NO QUESTIONS, PUPILS 2MM EQUAL/REACTIVE. WILL HOLD OFF ON STARTING NARCAN DRIP AT THIS TIME.
[2019-10-14] VITALS (72 sets, daily range): BP systolic 88–123; BP diastolic 48–75
[2019-10-14 04:39] LABS: BASOPHILS 0.2 % (0.0-2.0); EOSINOPHILS 0.7 % (0.0-3.0); HEMATOCRIT 25.1 % (42.0-52.0); HEMOGLOBIN 8.7 gm/dL (14.0-18.0); LYMPHOCYTES 5.2 % (24.0-44.0); MCH 30.9 pg (26.0-34.0); MCHC 34.8 g/dL (28.0-37.0); MCV 88.6 fL (80.0-100.0); MONOCYTES 5.6 % (1.0-8.0); PLATELET COUNT 189 thou/uL (150-400); POLYS 88.3 % (36.0-66.0); RBC 2.83 mil/uL (4.50-6.00); RDW 14.7 % (10.5-14.5); WBC 10.3 thou/uL (4.0-11.0)
[2019-10-14 05:13] LABS: BE(vivo) -3.1 mmol/L (-2 to +3); HCO3 20.7 mmol/L (22.0-26.0); PCO2 32.2 mmHg (35.0-45.0); PO2 106.3 mmHg (80.0-100.0); pH 7.426 (7.360-7.450)
[2019-10-14 05:35] LABS: ALBUMIN 2.1 g/dL (3.4-5.0); CALCIUM 6.9 mg/dL (8.5-10.1); TOTAL BILIRUBIN 1.6 mg/dL (0.2-1.0); TOTAL PROTEIN 4.9 g/dL (6.4-8.2)
[2019-10-14 05:48] LABS: POTASSIUM 2.9 mmol/L (3.5-5.1)
[2019-10-14 09:39] LABS: BE(vivo) -3.4 mmol/L (-2 to +3); HCO3 21.9 mmol/L (22.0-26.0); PCO2 40.5 mmHg (35.0-45.0); PO2 83.9 mmHg (80.0-100.0); pH 7.351 (7.360-7.450); sO2 95.9 % (92.0-98.0)
[2019-10-14 16:26] LABS: CALCIUM 7.1 mg/dL (8.5-10.1); MAGNESIUM 1.6 mg/dL (1.8-2.4)
--- NOTE | 2019-10-14 16:27 | NUR ---
PT SEDATED ON VENT. FIO2 TITRATED TO 30% BY RT. PT ON ELECTROLYTLE REPLACEMENT PROTOCAL FOR HYPOKALEMIA. PT CONTINUES TO RECEIVE LEVOPHED GTT FOR BP SUPPORT. CVP MONITORING STARTED. PER DR KRAUSE, WE ARE DOING AN ABBREVIATED SEPSIS PROTOCAL. CPAP TRIAL FROM [phone] TODAY, PT TOLERATED WELL. PROGRESSING TOWARDS POC.
[2019-10-15] VITALS (70 sets, daily range): BP systolic 105–151; BP diastolic 63–97
[2019-10-15 04:11] LABS: BE(vivo) -5.3 mmol/L (-2 to +3); PCO2 32.2 mmHg (35.0-45.0); PO2 92.2 mmHg (80.0-100.0); pH 7.388 (7.360-7.450); sO2 97.1 % (92.0-98.0)
--- NOTE | 2019-10-15 04:21 | NUR ---
SLEPT MOST OF SHIFT. REMAINS ON PROPOFOL FOR SEDATION. HAD ONE LOOSE STOOL THIS SHIFT AND SPECIMAN SENT TO LAB. WORKING ON GOALS AND PLAN OF CARE FOR NOC. BED REMAINS ON ROTATION AND MANUAL REPOSITIONING NEEDED. SUCTION ORALLY AND PER ET TUBE NEEDED. CVP REMAINS 4-6. BP STABLE. NOT PROGRESSING TOWARDS DISCHARGE GOALS AT THIS TIME. RESTRAINTS FOR LINE SAFETY. CONTINUE TO ASSES CLOSELY. WILL AWAKEN TO CALL OF NAME, FOLLOW SIMPLE COMANDS AND NODS HEAD YES/NO.
[2019-10-15 08:22] LABS: HEMATOCRIT 25.5 % (42.0-52.0); HEMOGLOBIN 8.9 gm/dL (14.0-18.0); MCH 30.7 pg (26.0-34.0); MCV 87.8 fL (80.0-100.0); RBC 2.9 mil/uL (4.50-6.00); WBC 8.5 thou/uL (4.0-11.0)
[2019-10-15 08:29] LABS: CALCIUM 7.2 mg/dL (8.5-10.1); CREATININE 0.8 mg/dL (0.7-1.3); POTASSIUM 3.3 mmol/L (3.5-5.1)
--- NOTE | 2019-10-15 18:33 | NUR ---
PT SEDATED ON VENT. VENT SETTINGS UNCHANGED. LEVOPHED TITRATING DOWN PT CAN TOLERATE. SECOND COVID IS NEGATIVE. POSITIVE FOR C-DIFF AND MRSA. NEUROLOGICALLY INTACT. ADEQUATE UOP. LUNG SOUNDS WORSENING COMPARED TO YESTERDAY SHIFT. PT AND FAMILY UPDATED AND EDUCATED ON POC. PROGRESSING TOWARDS POC. WILL CONTINUE TO MONITOR. 2 BM'S TODAY.
--- NOTE | 2019-10-15 21:20 | NUR ---
PT SELF EXTUBATED HIMSELF WITH RESTRAINTS INTACT. PLACED ON NRB PT STATES' I WANT SOMETHING TO EAT AND TO GO HOME. VERY PLEASANT. O2 SAT 100 %
--- NOTE | 2019-10-15 21:25 | NUR ---
DR KRAUSE NOTIFIED OF EXTUBATION. LEFT ORDERS TO KEEP O2 SAT > 92 %
--- NOTE | 2019-10-15 22:27 | HC ---
[facility] [place] [address] CONSULTATION Name: RUMA LOYA Room #: 238-P [facility] IN M.R.#: [id number] Admission: 10/13/19 Attend Phys: Scott Tovar MD, FAA Discharge: Date of : 57 Report #: [id number] THIS REPORT FOR: cc: Scott Tovar MD [facility] FACE Scott Tovar MD FAA FACE Brett Hemphill MD ~ CC: Scott Tovar DATE OF SERVICE: 10/14/2019 CONSULTATION: Infectious diseases. HISTORY OF PRESENT ILLNESS: Mr Loya is a 64-year-old white male who comes to the ER yesterday with depressed mental status and weakness. The patient apparently had several falls. He said this has been present for about a day, but he was not very reliable. He had incontinent stool on his legs. The patient became more obtunded and then had respiratory depression, required intubation for mechanical ventilation. The patient was noted to be hypotensive with blood pressure 88/52, which did not respond very well to fluids and pressors. The patient was admitted to the hospital. Workup suggested possible pneumonia. Infectious Disease consultation requested. The patient was diagnosed with C. difficile colitis on 09/04/2019. He was hospitalized at [place] and discharged on 09/24/2019 with diagnosis of weakness and falls. The mother came later and said she is concerned that the patient may have done an overdose on narcotic pain pills. PAST MEDICAL HISTORY: Significant for back pain. He has a mental health history that includes bipolar disease, anxiety, and depression. He has a diagnosis of "phantom seizures." He apparently had a prescription for valproic acid. Other diagnoses in the past include anemia and hepatitis B. PAST SURGICAL HISTORY: Includes fusion of thoracic spine and right knee replacement. ALLERGIES: The patient notes allergy to SULFA, CODEINE and HYDROCODONE. FAMILY HISTORY: Noncontributory. SOCIAL HISTORY: The patient is . No history of tobacco, alcohol or drugs. He apparently was living in assisted living setting. REVIEW OF SYSTEMS: Unavailable as the patient is now sedated on a ventilator. [facility] [address] [place] [address] CONSULTATION Name: VINCENZORUMAROCIO BLANTON Room #: 238-P [facility] IN ..#: [id number] Admission: 10/13/19 Attend Phys: Scott Tovar MD, FAAF Discharge: Date of : 57 Report #: [id number] PHYSICAL EXAMINATION: GENERAL: The patient appears comfortable. He apparently is responsive during sedation vacation, but at the time of my examination could not really give any meaningful answers. ENT: Otherwise unremarkable. Orogastric and oral endotracheal tubes are in position. VITAL SIGNS: Show temperature has been a maximum reading of 100.8 degrees Fahrenheit. His blood pressure in the ER was 88/52 and the most recent reading is 103/55, on Levophed. SKIN: Pale, but without any rash or lesions. HEART: Sounds S1, S2. Regular rate. Slow rhythm at 62. CHEST: Breath sounds are coarse throughout. The patient is still on the ventilator, but is mostly on CPAP now. ABDOMEN: Belly is thin, soft, not tender. There have been no stools since coming to the ICU last night. EXTREMITIES: Unremarkable. LABORATORY DATA: The white count is 9.1, hemoglobin 10, hematocrit 28.9, platelets are normal. Electrolytes: Sodium 136, potassium 2.9, chloride 105, bicarbonate 23, BUN 18, creatinine 1.0, glucose 107. Liver function tests are normal. The microbiology laboratory report, blood cultures x 2 are negative, but the sputum culture showed many white cells on the Gram stain, many Gram-positive cocci and few Gram-negative rods. The culture today is growing Staph aureus. Susceptibility studies are pending. Multiple radiology studies were performed. CT of the neck was negative. CT of the head was negative. CT angiogram of the abdomen and pelvis and chest showed bibasilar infiltrates in the chest and some swelling of the rectum consistent with colitis. The spleen was somewhat enlarged at 14 cm. The vascular tree was unremarkable. Plain chest x-rays also suggested infiltrates. They are more prominent on the left in the retrocardiac area. ASSESSMENT AND PLAN: In summary, we have a gentleman who presents with hypotension and delirium, requiring intubation. He has a history of weakness and Clostridium colitis 5 weeks ago and a hospitalization for weakness just 3 weeks ago. Workup now shows low fever, low blood pressure and Staph aureus in the blood with infiltrates. There is a recent history of Clostridium difficile disease. I would suggest that we adjust the antibiotics and treat the staph in the sputum with vancomycin. The pharmacy is assisting with dosing. With a history of recent Clostridium difficile, I would like to use IV Flagyl as well as oral vancomycin and probiotics. I anticipate the patient will be extubated soon and hopefully will be able to continue to take oral medicine. If not, we may want to consider an enteral tube until swallow recovers. It seems unusual that he has so much hypotension with really minimal infiltrates and a normal white count and no acidosis. We may want to see if there is any further evidence suggesting a drug overdose. Of note, his pupils are midposition and are not really [facility] [address] [place] [address] CONSULTATION Name: RUMA LOYA Room #: 238-P [facility] IN [facility]#: [id number] Admission: 10/13/19 Attend Phys: Scott Tovar MD, FAAF Discharge: Date of : 57 Report #: [id number] suggestive of active narcotic effect at this time. I will continue to follow the patient through the weekend. Dr. Dey returns tomorrow. Thank you for requesting Infectious Disease input in the care of this complex patient. <ELECTRONICALLY SIGNED> By: Brett Hemphill MD 10/15/19 2227 [id number] Brett Hemphill MD /nt
[2019-10-16] VITALS (14 sets, daily range): BP systolic 115–133; BP diastolic 69–84
--- NOTE | 2019-10-16 | NUR ---
PT CONT TO BE AWAKE AND ALERT. LEVOPHED GTT TITRATED OFF AND NC NOW AT 2 L O2 SAT 100 %. PT IS IN GOOD SPIRITS!
[2019-10-16 04:53] LABS: ABSOLUTE NEUTROPHILS 3.1 thou/uL (1.4-8.2); BASOPHILS 0.5 % (0.0-2.0); EOSINOPHILS 7.1 % (0.0-3.0); HEMATOCRIT 23.1 % (42.0-52.0); LYMPHOCYTES 15.9 % (24.0-44.0); MCH 30.8 pg (26.0-34.0); MCHC 34.6 g/dL (28.0-37.0); MCV 88.9 fL (80.0-100.0); MONOCYTES 6.6 % (1.0-8.0); PLATELET COUNT 166 thou/uL (150-400); POLYS 69.9 % (36.0-66.0); WBC 4.4 thou/uL (4.0-11.0)
[2019-10-16 05:23] LABS: % SATURATION 54 % (20-39); ALBUMIN 1.8 g/dL (3.4-5.0); CALCIUM 7.1 mg/dL (8.5-10.1); CREATININE 0.7 mg/dL (0.7-1.3); IRON 56 ug/dL (65-175); MAGNESIUM 1.7 mg/dL (1.8-2.4); POTASSIUM 3.5 mmol/L (3.5-5.1); TIBC 103 ug/dL (250-450); TOTAL BILIRUBIN 1.3 mg/dL (0.2-1.0); TOTAL PROTEIN 4.4 g/dL (6.4-8.2)
[2019-10-16 05:53] LABS: FOLIC ACID 17.2 ng/mL (8.6-58.9)
--- NOTE | 2019-10-16 06:00 | NUR ---
PT SLEPT AT INTERVAL TONIGHT. O2 SAT 100 % ON ROOM AIR EXCELLENT PRODUCTIVE COUGH. THICK BEIGE SPUTUM. LEVO GTT REMAINS OFF. DENIES PAIN JUST WANTS SOMETHING TP EAT AND TO GO HOME TODAY. HAD 4 LARGE BROWN LOOSE STOOLS. REMAINS IN SOILATION FOR C-DIFF MRSA AND R/O COVID 19. BATHED PROGRESSIBNG TOWARD GOALS. 2500 CC URINE OUTPUT THIS SHIFT. WILL CONT TO MONITOR.
--- NOTE | 2019-10-16 09:50 | NUR ---
Nutrition: pt admit with HCAP, Cdiff, encephalitis, hypokalemia. Received consult over weekend for TPN/TF recommendation. NPO x 3 days. Pt previously on vent but self extubated yesterday. In MRSA/Cdiff isolation. COVID negative. Weight trends up 30# from August. ? Unsure of accuracy. Pt has been alert and asking to eat. Suspect diet will advance soon. May require ST eval post extubation. RD will followup 24-48 hrs.
--- NOTE | 2019-10-16 16:20 | NUR ---
INITIAL ASSESSMENT: Consult received. SW reviewed chart and spoke with nursing. Pt was admitted from [facility] due to pneumonia. Pt was intubated and is in ICU. Pt has had two negative COVID-19 tests. Pt self-extubated and is on room air now. Pt was recently discharged from [facility] on 09/25 with Chuck DUMONT. Pt has a walker at home. Per nursing, pt may leave AMA. Waiting for attending physician to evaluate pt. SW is following to assist as needed with discharge planning.
--- NOTE | 2019-10-16 17:00 | NUR ---
PT VSS STABLE THROUGHT SHIFT. PT WANTED TO SEE DR YOUNGER AND SAID THAT IF HE WASNT ABLE TO SEE HIM THAT HE WOULD LEAVE AMA. I MADE DR YOUNGER AWARE OF THIS AND HE SAID THAT HE WOULD NOT BE ABLE TO SEE THE PT UNTIL AFTER SIX. I THEN TOLD THE PT THIS AND HE SAID HE WANTED TO LEAVE AMA. ALL AMA PAPERWORK WAS FILLED OUT, PT WAS EDUCATED ON RISKS OF LEAVING AMA. PT WAS GIVEN PAPER SCRUB PANTS FROM THE ED AND NON-SLIP SOCKS. PTS ONLY BELONGING WAS A T-SHIRT. CENTRAL LINE/PIV/DAVIS ALL DC'D PRIOR TO PT LEAVING. PT WAS ABLE TO VOID PRIOR TO LEAVING. DR YOUNGER GAVE A TELOPHONE ORDER FOR DOXYCYCLINE WHICH WAS ORDERED AND A PAPER SCRIPT GIVEN TO THE PT. PT WALKED OUT OF THE ICU ON OWN POWER. MANAGER SUPPLY, CASE MANAGEMENT, AND ICU CHARGE NURSE WERE MADE AWARE OF THE SITUATION. PT LEFT ICU AT 1704.
== END 2019-10-16 17:26 | disposition home or self-care (01) | DRG 871 ==
LOC: ER 12:19 → ICU 13:38 → EROBS 13:38 → ICU 18:24
PROVIDERS: Internal Medicine Pulmonary Disease; Physician Assistant; ADMIT Family Medicine
PROC: 5A1945Z Respiratory Ventilation, 24-96 Consecutive Hours (ICD-10-PCS; principal; 2019-10-13)
PROC: 02HV33Z Insertion of Infusion Device into Superior Vena Cava, Percutaneous Approach (ICD-10-PCS; principal; 2019-10-13)
PROC: 0BH17EZ Insertion of Endotracheal Airway into Trachea, Via Natural or Artificial Opening (ICD-10-PCS; principal; 2019-10-13)
DX: A41.9 Sepsis, unspecified organism (principal); J18.9 Pneumonia, unspecified organism; G92 Toxic encephalopathy; J96.01 Acute respiratory failure with hypoxia; R65.21 Severe sepsis with septic shock; N17.9 Acute kidney failure, unspecified; B19.10 Unspecified viral hepatitis B without hepatic coma; E87.1 Hypo-osmolality and hyponatremia; E87.2 Acidosis; R29.6 Repeated falls; G89.29 Other chronic pain; M54.9 Dorsalgia, unspecified; F31.9 Bipolar disorder, unspecified; F41.9 Anxiety disorder, unspecified; I10 Essential (primary) hypertension; Z96.651 Presence of right artificial knee joint; K52.9 Noninfective gastroenteritis and colitis, unspecified; E87.6 Hypokalemia; T40.2X1A Poisoning by other opioids, accidental (unintentional), initial encounter; E86.9 Volume depletion, unspecified; G40.909 Epilepsy, unspecified, not intractable, without status epilepticus; Z20.828 Contact with and (suspected) exposure to other viral communicable diseases; B95.8 Unspecified staphylococcus as the cause of diseases classified elsewhere; D64.9 Anemia, unspecified; F99 Mental disorder, not otherwise specified; Y92.89 Other specified places as the place of occurrence of the external cause; Z79.891 Long term (current) use of opiate analgesic; Z79.899 Other long term (current) drug therapy; Z88.5 Allergy status to narcotic agent; Z88.2 Allergy status to sulfonamides; Z88.8 Allergy status to other drugs, medicaments and biological substances
CPT/HCPCS: 10078

== ENCOUNTER 2019-10-22 00:54 | Emergency (ER) | payer OTHER ==
[~2019-10-22] VITALS: Ht 177.8 cm; Wt 81.7 kg
[2019-10-22 01:38] LABS: BASOPHILS 0.8 % (0.0-2.0); EOSINOPHILS 3.4 % (0.0-3.0); HEMATOCRIT 26.5 % (42.0-52.0); HEMOGLOBIN 8.9 gm/dL (14.0-18.0); MCH 30.4 pg (26.0-34.0); MCHC 33.5 g/dL (28.0-37.0); MCV 90.7 fL (80.0-100.0); MONOCYTES 8.9 % (1.0-8.0); PLATELET COUNT 299 thou/uL (150-400); POLYS 66.9 % (36.0-66.0); RBC 2.92 mil/uL (4.50-6.00); RDW 15.6 % (10.5-14.5); WBC 5.9 thou/uL (4.0-11.0)
[2019-10-22 01:52] LABS: ANION GAP 8 mmol/L (7-16); BUN 10 mg/dL (7-18); CALCIUM 7.7 mg/dL (8.5-10.1); CHLORIDE 108 mmol/L (98-107); CO2 28 mmol/L (21-32); CREATININE 1.3 mg/dL (0.7-1.3); GLUCOSE 91 mg/dL (74-106); POTASSIUM 3.2 mmol/L (3.5-5.1); SODIUM 144 mmol/L (136-145)
[2019-10-22 02:02] LABS: ALBUMIN 2.8 g/dL (3.4-5.0); SGOT 95 U/L (15-37); SGPT 54 U/L (30-65); TOTAL BILIRUBIN 0.9 mg/dL (0.2-1.0); TOTAL PROTEIN 6.1 g/dL (6.4-8.2); TROPONIN-I <0.06 ng/mL (<0.06)
[2019-10-22 02:15] VITALS: BP 118/72
--- NOTE | 2019-10-23 08:53 | EKG ---
[facility] [place] [address] ELECTROCARDIOGRAM REPORT Name: VINCENZOKENNEY SOUZAEN FRANNY Room #: [facility]P [facility] DOTHANOctavia#: [id number] Admission: 10/22/19 Attend Phys: Discharge: 10/22/19 Date of : 57 Report #: [id number] THIS REPORT FOR: cc: Franny Tovar MD FAA FACE Franny Tovar MD FAA FACE Mateo Roldan MD [facility] ~ THIS REPORT FOR: //name// [facility] ED Test Date: 2019-10-22 Test Time: 01:42:07 Pat Name: RUMA LOYA Department: Room: Gender: Retort Operator: MORRO : 1955 Requested By: Ga Cantor Order Number: [id number] MD: Mateo Roldan Measurements Intervals [place] Rate: 82 P: 53 DE: 167 QRS: -43 QRSD: 107 T: -36 QT: 483 QTc: 565 Interpretive Statements Sinus rhythm Multiple ventricular premature complexes Left axis deviation Nonspecific T abnormalities, diffuse leads Prolonged QT interval Compared to ECG 10/13/2019 12:33:22 Ventricular premature complex(es) now present Electronically Signed On 10-23-2019 8:51:55 CDT by Mateo Roldan [email or web address] <ELECTRONICALLY SIGNED> By: Mateo oRldan MD, [facility] 10/23/19 0851 1 014 Mateo Roldan MD, FAC /EPI
== END 2019-10-22 02:17 | disposition home or self-care (01) ==
LOC: ER 00:54
PROVIDERS: Emergency Medicine
DX: R60.0 Localized edema (principal); I10 Essential (primary) hypertension; Z79.899 Other long term (current) drug therapy; Z88.2 Allergy status to sulfonamides; Z88.6 Allergy status to analgesic agent

== ENCOUNTER 2019-10-27 15:24 | Emergency (ER) | payer OTHER ==
[~2019-10-27] VITALS: Ht 177.8 cm; Wt 70.3 kg
[2019-10-27 15:33] VITALS: BP 165/91
== END 2019-10-27 16:19 | disposition home or self-care (01) ==
LOC: ER 15:24
DX: G56.32 Lesion of radial nerve, left upper limb (principal); I10 Essential (primary) hypertension; Z86.2 Personal history of diseases of the blood and blood-forming organs and certain disorders involving the immune mechanism; Z87.891 Personal history of nicotine dependence; Z79.899 Other long term (current) drug therapy; Z88.2 Allergy status to sulfonamides; Z88.5 Allergy status to narcotic agent; Z88.8 Allergy status to other drugs, medicaments and biological substances

== ENCOUNTER 2019-11-13 17:41 | Inpatient (IN) | payer OTHER, MEDICARE ==
[~2019-11-13] VITALS: Ht 177.8 cm; Wt 70.3 kg
--- NOTE | ~2019-11-13 | H ---
[facility] [place] [address] HISTORY AND PHYSICAL Name: RUMA LOYA Room #: 450-P ADM IN M.R.#: [id number] Admission: 11/13/19 Attend Phys: Scott Tovar MD, FAAF Discharge: Date of : 57 Report #: [id number] THIS REPORT FOR: cc: Scott Tovar MD FAAFP FACEP TovarScott mays MD FAAFP FACEP Scott Tovar MD FAA FACEP ~ CC: Scott Tovar DATE OF SERVICE: 11/14/2019 CHIEF COMPLAINT: Nausea, vomiting, diarrhea. HISTORY OF PRESENT ILLNESS: The patient is a 64-year-old white male, patient of mine over a number of years, who presented to the Emergency Department with nausea, vomiting, diarrhea. On the morning of this history and physical, he is feeling better after IV fluids, tolerating clear liquids, had a formed stool since admission and a GI consult is in progress. PAST MEDICAL HISTORY: Chronic mid back pain, bulging disk. Sacral mass removed, benign in 2006. Bipolar affective disorder, anxiety, depression, hypertension, right total knee replacement, colonoscopy, phantom seizure in 2017, hepatitis B, pelvic injury, hip surgery, anemia, C. diff colitis in ____. MEDICATIONS: Methadone 10 mg 1 p.o. b.i.d., alprazolam 0.5 mg 1 p.o. b.i.d. p.r.n. anxiety, metoprolol 50 mg 1 p.o. b.i.d. ALLERGIES: SULFA, CODEINE, HYDROCODONE, AND TRAMADOL. SOCIAL HISTORY: Nonsmoker, now lives in independent living at [facility]. FAMILY HISTORY: Not contributory. REVIEW OF SYSTEMS: GENERAL: No fever or chills. He has had nausea, vomiting and diarrhea. EYES: No visual changes. ENT: No problem with hearing, swallow, taste or smell. CARDIOVASCULAR: No chest pain or palpitations. RESPIRATORY: No difficulty breathing. GASTROINTESTINAL: Nausea, vomiting, diarrhea. Has no abdominal pain. GENITOURINARY: No problem with urinating. MUSCULOSKELETAL: Has chronic back pain. NEUROLOGIC: No paresis, paralysis or paresthesias. PSYCHIATRIC: He has had some episodes of delusion. Remainder of system review is negative. OBJECTIVE: [address] [address] HISTORY AND PHYSICAL Name: RUMA LOYA Room #: [facility] IN ..#: [id number] Admission: 11/13/19 Attend Phys: Scott Tovar MD, FAAF Discharge: Date of : 57 Report #: [id number] VITAL SIGNS: Temperature is 36.5, pulse 94, respirations 20, blood pressure 139/87, pulse oximetry 98% on room air. He weighs 154 pounds or ____ kilograms. GENERAL: Well developed, but in no acute distress on the time of my exam. HEENT: Pupils equal, round, reactive to light and accommodation. Extraocular muscles intact. Pharynx is unremarkable. NECK: Supple. COR: ____. CHEST: ____. ABDOMEN: Soft, nontender. EXTREMITIES: No cyanosis, clubbing or edema. NEUROLOGIC: He is intact. LABORATORY EVALUATION: CBC: White count 7.8, hemoglobin 9.7, hematocrit 28.5, platelets 205,000. Serum chemistry: Sodium 138, potassium 4, chloride 105, CO2 of 28, BUN 20, creatinine 1.1, GFR estimated at 68. Glucose 107, lactate 1.5, calcium is 8.5, total bilirubin is 1.1, AST 29, ALT 23, alkaline phosphatase 140. Troponin is less than 0.06. Total protein 6.7, albumin 3.2, lipase 124. RADIOLOGIC DATA: CT scan of the abdomen and pelvis with contrast showed a very large amount of semisolid stool present throughout the colon, nonspecific increased fluid in the small bowel. New intra and extrahepatic biliary ductal dilatation, moderate distention of the gallbladder, no cholelithiasis or choledocholithiasis evident. No pancreatic head mass is seen. The possibility of non-radiopaque common bile duct stone and common bile duct stricture cannot be ruled out. Ultrasound of the abdomen showed normal gallbladder appearance, mild biliary ductal dilatation, no ultrasound evidence of common bile duct stone. ASSESSMENT: Nausea, vomiting, diarrhea, mental status changes, recent history of Clostridium difficile colitis, mild elevation of liver function tests, anemia. PLAN: Admit to hospital, IV fluid rehydration, clear liquid diet. Serial laboratories, following presence of C. diff toxin sampled from the Emergency Department. GI consult working. By: [id number] 1152 Scott Tovar MD, FAAFP, FACEP /nt
[2019-11-13 17:42] VITALS: BP 139/87
[2019-11-13 18:39] LABS: ANION GAP 5 mmol/L (7-16); BUN 20 mg/dL (7-18); CALCIUM 8.5 mg/dL (8.5-10.1); CHLORIDE 105 mmol/L (98-107); CO2 28 mmol/L (21-32); CREATININE 1.1 mg/dL (0.7-1.3); GLUCOSE 107 mg/dL (74-106); POTASSIUM 4.4 mmol/L (3.5-5.1); SODIUM 138 mmol/L (136-145)
[2019-11-13 18:51] LABS: ALBUMIN 3.2 g/dL (3.4-5.0); LIPASE 124 U/L (73-393); SGOT 29 U/L (15-37); SGPT 23 U/L (30-65); TOTAL BILIRUBIN 1.1 mg/dL (0.2-1.0); TOTAL PROTEIN 6.7 g/dL (6.4-8.2); TROPONIN-I <0.06 ng/mL (<0.06)
[2019-11-13 19:23] LABS: ABSOLUTE NEUTROPHILS 5.9 thou/uL (1.4-8.2); BASOPHILS 0.5 % (0.0-2.0); EOSINOPHILS 2.7 % (0.0-3.0); HEMATOCRIT 28.5 % (42.0-52.0); HEMOGLOBIN 9.7 gm/dL (14.0-18.0); LYMPHOCYTES 13.1 % (24.0-44.0); MCH 31.4 pg (26.0-34.0); MCHC 34.2 g/dL (28.0-37.0); MCV 91.7 fL (80.0-100.0); MONOCYTES 8.3 % (1.0-8.0); PLATELET COUNT 205 thou/uL (150-400); POLYS 75.4 % (36.0-66.0); RDW 14.9 % (10.5-14.5); WBC 7.8 thou/uL (4.0-11.0)
[2019-11-13 21:19] LABS: URINE BILIRUBIN NEGATIVE (Negative); URINE BLOOD NEGATIVE (Negative); URINE CLARITY CLEAR; URINE COLOR YELLOW; URINE GLUCOSE-RANDOM* NEGATIVE (Negative); URINE KETONES NEGATIVE (Negative); URINE LEUKOCYTES-REFLEX NEGATIVE (Negative); URINE NITRITE-REFLEX NEGATIVE (Negative); URINE PROTEIN (DIPSTICK) NEGATIVE (Negative); URINE UROBILINOGEN 0.2 E.U./dl (0.2-1.0)
[2019-11-13 21:30] VITALS: BP 139/87
[2019-11-13 21:40] VITALS: BP 129/82
[2019-11-13 22:58] VITALS: BP 130/96
--- NOTE | 2019-11-13 23:06 | NUR ---
PT ARRIVED FROM ER AT 2150HRS. PT IS AOX4 BUT APPEARS TO BE FORGETFUL AT TIMES. FALL PRECAUTION IN PLACE DUE TO WEAKNESS. PT IN ISOLATION FOR R/O CDIFF. SAMPLE SENT FROM ER. PT HAD A FORMED BM ON THE UNIT. PT REPORTS SOME PAIN AND NAUSEA. PT WAS ORTENTED TO THE UNIT AND HIS ROOM. PT WAS ABLE TO SIGN OWN CONSENTS. PT WAS ABLE TO ANSWER ALL ADMISSION RELATED QUESTIONS. VSS AND NO S/S OF ACUTE DISTRESS. WILL CONTINUE TO MONITOR.
[2019-11-14 08:01] VITALS: BP 122/84
--- NOTE | 2019-11-14 08:12 | EKG ---
[facility] [place] [address] ELECTROCARDIOGRAM REPORT Name: RUMA LOYA Room #: 449-I ADM IN M.R.#: [id number] Admission: 11/13/19 Attend Phys: Scott Tovar MD, FAAF Discharge: Date of : 57 Report #: [id number] THIS REPORT FOR: cc: Scott Tovar MD FAA FACE Scott Tovar MD FAA FACE Mateo Roldan MD [facility] ~ THIS REPORT FOR: //name// [facility] ED Test Date: 2019-11-13 Test Time: 20:19:13 Pat Name: RUMA LOYA Department: Room: [facility] Gender: M Glassie: OLLIE : 1955 Requested By: Julian Bolanos Order Number: [id number] MD: Mateo Roldan Measurements Intervals [place] Rate: 94 P: 38 WY: 146 QRS: -56 QRSD: 99 T: 31 QT: 370 QTc: 463 Interpretive Statements Sinus rhythm Left anterior fascicular block Abnormal R-wave progression, early transition Compared to ECG 10/22/2019 01:42:07 T wave abnormality no longer present Electronically Signed On 11-14-2019 8:11:35 CDT by Mateo Roldan [email or web address] <ELECTRONICALLY SIGNED> By: Mateo Roldan MD, FAC 11/14/19 0811 18 18 Mateo Roldan MD, [facility] /EPI
--- NOTE | 2019-11-14 11:12 | NUR ---
Received awake on bed. Due medications given as prescribed. Maintained on clear liquid diet- tolerating well; no nausea, no vomiting and no abdominal pain. Maintained on isolation due to rule out Cdiff. On telemetry- SR; strips attached to chart; no complaints of chest pain, crushing sensation and heaviness. On room air. Falls bundle in place. Assisted in ADLs. Continent of bowel and bladder- able to go to the toilet, gait belt and standby assist. With D51/2NS at 75cc/hr, infusing well at R AC- one time dose only, to shift to SL once consumed. To continue monitoring patient.
[2019-11-14 15:51] VITALS: BP 112/79
[2019-11-14 19:49] VITALS: BP 122/74
--- NOTE | 2019-11-14 21:17 | NUR ---
PT IS VERY CONFUSED DISPITE BEING ABLE TO ANSWER AO QUESTIONS. PT IS NOT COMPLIENT WITH FALL PRECAUTIONS. PT RE-EDUCATED. PT IS DELUSIONAL. PT IS LOOKING FOR HIS "METAL TRASH BINS" THAT HE BROUGHT FROM HOME. PT IS NOT FROM HOME AND NO TRASH BINS WERE WITH HIM UPON ARRIVAL.
[2019-11-15 04:40] VITALS: BP 113/78
[2019-11-15 08:10] VITALS: BP 113/78
--- NOTE | 2019-11-15 11:56 | NUR ---
Reeived awake on bed. Due medications given as prescribed, able to swallow meds w/o difficulty. On room air. Vital signs stable. On telemetry- SR-ST; strips attached to chart; no complaints of pain, heaviness and crushing sensation. On soft fiber restricted diet- tolerating well; no nausea, no vomiting and no abdominal pain noted. A+O, able to orientation questions but has episodes of confusion- re-oriented frequently. Able to use the urinal- output measured and recorded accordingly; able to go to the toilet- standby assist and gait belt. With SL at R AC- intact. Falls bundle in place, bed alarm on, pt re-instructed to use call light for assistance. Assisted in ADLs. Maintained on isolation due to positive Cdiff. To continue monitoring patient. Pt's medical records requested from [facility] yesterday, still a/w response from facility. Pt seen and examined by Gastro today, tolerated Mg Citrate- charted down bowel movements.
--- NOTE | 2019-11-15 15:09 | NUR ---
PT ADMITTS RELATED TO N/V/D, R/O CDIFF, BILIARY DIALATION. CM REVIEWED CHART AND SPOKE WITH CARE TEAM. CM ATTEMTPED PC TO PT IN ROOM THIS DAY WITH NO ANSWER. PT IS FAMILIAR TO CM FROM PEVIOUS ADMISSIONS. PT RESIDES IN PR APARTMENT AT [facility]. HE HAD BEEN ON SERVICE [facility] IN THE PAST AND HAS A FWW FOR HOME USE. PT HAD ALSO UTILIZED SOME ADDITIONAL SUPPORT SERVICES OFFERED THROUGH [facility][NOTE 3]. PT HAD BEEN GIVEN RESOURCES TO FIND ALTERNATIVE HOUSING IN THE [place] PREVIOUSLY. GI HAD BEEN CONSULTED AND IS FOLLOWING. CM TO FOLLOW INDICATED WITH DC PLANNING.
[2019-11-15 15:42] VITALS: BP 114/79
[2019-11-15 19:57] VITALS: BP 119/78
[2019-11-16 03:59] VITALS: BP 138/85
--- NOTE | 2019-11-16 05:39 | NUR ---
Assumed pt care at 1900. Pt is A/OX4 with forgetfulness and needs frequent reminders to call for help before getting OOB. Up with SBA,unsteady shuffled gait noted. VSS. C/o back/right knee pain at HS,this morning c/o left knee pain/swelling denies hitting anything or falling on it.Will notify . Pt reports less diarrhea this shift.Remains on special contact isolation for cdiff. Fall precautions in place,will continue to monitor pt. IV reinserted at HS on LFA with 2 attempts.
[2019-11-16 06:18] LABS: ABSOLUTE NEUTROPHILS 3.1 thou/uL (1.4-8.2); BASOPHILS 0.6 % (0.0-2.0); EOSINOPHILS 4.3 % (0.0-3.0); HEMATOCRIT 29.2 % (42.0-52.0); HEMOGLOBIN 9.8 gm/dL (14.0-18.0); LYMPHOCYTES 27.1 % (24.0-44.0); MCH 30.9 pg (26.0-34.0); MCHC 33.7 g/dL (28.0-37.0); MCV 91.6 fL (80.0-100.0); MONOCYTES 8.6 % (1.0-8.0); PLATELET COUNT 215 thou/uL (150-400); POLYS 59.4 % (36.0-66.0); RBC 3.19 mil/uL (4.50-6.00); RDW 15.1 % (10.5-14.5); WBC 5.3 thou/uL (4.0-11.0)
[2019-11-16 06:56] LABS: ALBUMIN 2.4 g/dL (3.4-5.0); CREATININE 0.9 mg/dL (0.7-1.3); POTASSIUM 4.6 mmol/L (3.5-5.1); TOTAL BILIRUBIN 0.5 mg/dL (0.2-1.0); TOTAL PROTEIN 5.9 g/dL (6.4-8.2)
[2019-11-16 07:31] VITALS: BP 143/87
--- NOTE | 2019-11-16 09:45 | NUR ---
ASSUMED CARE AT 0700. PT IS ALERT AND ORIENTED. NO COMPLAINTS THIS AM. VSSA/RA NSR ON TELE MONITOR. TOLERATING DIET, NO N/V. PIV IN PLACE NO ISSUES. C/O LEFT KNEE SWELLING OVER NOC, WILL CONTINUE TO MONITOR. FALL PRECAUTIONS IN PLACE, INSTRUCTED TO CALL AND CALL LIGHT IN REACH.
[2019-11-16 14:08] VITALS: BP 125/78
[2019-11-16 22:07] VITALS: BP 130/90
[2019-11-17 07:40] VITALS: BP 148/87
--- NOTE | 2019-11-17 07:44 | NUR ---
progress pt up with steady gaity voiding per urinal using call light appropriately vss, tolerating po food and fluids iv sl. tele intact reading sr. pt hopes to dc back to [facility] today.
--- NOTE | 2019-11-17 11:00 | NUR ---
ASSUMED CARE AT 0700. PT IS ALERT AND ORIENTED WITH NO COMPLAINTS. STATES HE IS "FEELING GOOD AND READY TO GO HOME". VSSA/RA NSR ON TELE. TOLERATING DIET WITH NO DIARRHEA NOTED. PIV SL WITHOUT ISSUES. PT IS UAL, STEADY ON FEET. CONTACTED DR YOUNGER PER PT REQUEST. DR YOUNGER STATED HE WILL BE UP TO SEE PT AROUND 1300 FOR DISCHARGE ORDERS. PT VERBALIZES UNDERSTANDING. WILL CONTINUE TO MONITOR
[2019-11-17] MEDS ORDERED: FIRVANQ50 MG/1 ML PO ×2 (13:53)
[2019-11-17 14:10] VITALS: BP 148/87
== END 2019-11-17 14:50 | disposition home or self-care (01) | DRG 371 ==
LOC: ER 17:41 → 4W 20:58 → EROBS 20:58 → 4W 21:49
PROVIDERS: Physician Assistant; ADMIT Family Medicine; ATTEND Family Medicine
DX: A04.72 Enterocolitis due to Clostridium difficile, not specified as recurrent (principal); E43 Unspecified severe protein-calorie malnutrition; K82.8 Other specified diseases of gallbladder; D64.9 Anemia, unspecified; K59.00 Constipation, unspecified; G40.909 Epilepsy, unspecified, not intractable, without status epilepticus; F31.9 Bipolar disorder, unspecified; Z96.651 Presence of right artificial knee joint; Z23 Encounter for immunization; Z88.2 Allergy status to sulfonamides; Z88.5 Allergy status to narcotic agent; Z03.818 Encounter for observation for suspected exposure to other biological agents ruled out
CPT/HCPCS: 10045

== ENCOUNTER 2019-11-22 08:20 | Emergency (ER) | payer MEDICARE, OTHER ==
[~2019-11-22] VITALS: Ht 177.8 cm; Wt 68.0 kg
[2019-11-22 10:59] LABS: ABSOLUTE NEUTROPHILS 2.5 thou/uL (1.4-8.2); BASOPHILS 0.8 % (0.0-2.0); EOSINOPHILS 7.5 % (0.0-3.0); HEMATOCRIT 29.6 % (42.0-52.0); HEMOGLOBIN 10.1 gm/dL (14.0-18.0); LYMPHOCYTES 35.2 % (24.0-44.0); MCHC 34.2 g/dL (28.0-37.0); MCV 90.7 fL (80.0-100.0); MONOCYTES 8.7 % (1.0-8.0); PLATELET COUNT 271 thou/uL (150-400); POLYS 47.8 % (36.0-66.0); RBC 3.27 mil/uL (4.50-6.00); RDW 14.4 % (10.5-14.5); WBC 5.2 thou/uL (4.0-11.0)
[2019-11-22 11:07] LABS: CREATININE 1.3 mg/dL (0.7-1.3); MAGNESIUM 2.6 mg/dL (1.8-2.4); POTASSIUM 3.8 mmol/L (3.5-5.1)
[2019-11-22 11:13] LABS: CALCIUM 8.4 mg/dL (8.5-10.1)
[2019-11-22 12:18] LABS: URINE BILIRUBIN NEGATIVE (Negative); URINE BLOOD NEGATIVE (Negative); URINE CLARITY CLEAR; URINE COLOR YELLOW; URINE GLUCOSE-RANDOM* NEGATIVE (Negative); URINE KETONES NEGATIVE (Negative); URINE LEUKOCYTES-REFLEX NEGATIVE (Negative); URINE NITRITE-REFLEX NEGATIVE (Negative); URINE PROTEIN (DIPSTICK) TRACE (Negative); URINE SPECIFIC GRAVITY >= 1.030 (1.005-1.035); URINE UROBILINOGEN 0.2 E.U./dl (0.2-1.0)
[2019-11-22 12:44] VITALS: BP 118/88
--- NOTE | 2019-11-22 14:31 | EKG ---
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 : 1955 Requested By: Jose L Dumont Order Number: [id number] MD: Rome Lyle Measurements Intervals [place] Rate: 69 P: 66 NV: 185 QRS: -30 QRSD: 116 T: -34 QT: 481 QTc: 516 Interpretive Statements Sinus rhythm Nonspecific intraventricular conduction delay Low voltage, precordial leads Nonspecific T abnormalities, diffuse leads Compared to ECG 11/13/2019 20:19:13 Electronically Signed On 11-22-2019 14:31:35 CDT by Rome Lyle [email or web address] <ELECTRONICALLY SIGNED> By: Rome Lyle MD 11/22/19 1431 1002 1002 Rome Lyle MD /EPI
== END 2019-11-22 12:44 | disposition home or self-care (01) ==
LOC: ER 08:20
PROVIDERS: Emergency Medicine
DX: S00.81XA Abrasion of other part of head, initial encounter (principal); G89.29 Other chronic pain; M54.5 Low back pain; I10 Essential (primary) hypertension; Z79.899 Other long term (current) drug therapy; Z88.2 Allergy status to sulfonamides; Z88.5 Allergy status to narcotic agent; W19.XXXA Unspecified fall, initial encounter; Y93.89 Activity, other specified; Y92.89 Other specified places as the place of occurrence of the external cause; Y99.8 Other external cause status

== ENCOUNTER 2019-12-05 14:12 | Inpatient (IN) | payer MEDICARE, OTHER ==
[~2019-12-05] VITALS: Ht 177.8 cm; Wt 62.6 kg
[2019-12-05 14:16] VITALS: BP 149/65
[2019-12-05 15:33] LABS: ABSOLUTE NEUTROPHILS 12.7 thou/uL (1.4-8.2); BASOPHILS 0.5 % (0.0-2.0); EOSINOPHILS 0.1 % (0.0-3.0); HEMATOCRIT 37.8 % (42.0-52.0); HEMOGLOBIN 12.9 gm/dL (14.0-18.0); LYMPHOCYTES 13.6 % (24.0-44.0); MCH 30.5 pg (26.0-34.0); MCHC 34.2 g/dL (28.0-37.0); MCV 89.2 fL (80.0-100.0); MONOCYTES 4.5 % (1.0-8.0); PLATELET COUNT 479 thou/uL (150-400); POLYS 81.3 % (36.0-66.0); RBC 4.24 mil/uL (4.50-6.00); RDW 14.5 % (10.5-14.5); WBC 15.7 thou/uL (4.0-11.0)
[2019-12-05 15:42] LABS: ANION GAP 14 mmol/L (7-16); BUN 41 mg/dL (7-18); CALCIUM 8.7 mg/dL (8.5-10.1); CHLORIDE 99 mmol/L (98-107); CO2 23 mmol/L (21-32); GLUCOSE 89 mg/dL (74-106); POTASSIUM 3.4 mmol/L (3.5-5.1); SODIUM 136 mmol/L (136-145)
[2019-12-05 15:52] LABS: SGOT 23 U/L (15-37); SGPT 17 U/L (30-65); TOTAL BILIRUBIN 1.8 mg/dL (0.2-1.0); TOTAL PROTEIN 8.2 g/dL (6.4-8.2); TROPONIN-I <0.06 ng/mL (<0.06)
[2019-12-05 17:10] LABS: URINE BILIRUBIN 1+ (Negative); URINE BLOOD TRACE (Negative); URINE CLARITY CLEAR; URINE COLOR YELLOW; URINE GLUCOSE-RANDOM* NEGATIVE (Negative); URINE KETONES 1+ (Negative); URINE LEUKOCYTES-REFLEX NEGATIVE (Negative); URINE NITRITE-REFLEX NEGATIVE (Negative); URINE PROTEIN (DIPSTICK) 2+ (Negative); URINE SPECIFIC GRAVITY >= 1.030 (1.005-1.035); URINE UROBILINOGEN 0.2 E.U./dl (0.2-1.0)
[2019-12-05 17:12] LABS: ICTOTEST (BILI CONFIRMATORY) Negative (Negative)
[2019-12-05 17:22] LABS: BACTERIA-REFLEX 1-9 Few /HPF (None Seen); CASTS None Seen /LPF (None Seen); CRYSTALS None Seen /LPF (None Seen); SQUAMOUS 0-3 Few /LPF (0-3); URINE RBC None Seen /HPF (0-2); URINE WBC-REFLEX None Seen /HPF (0-5)
[2019-12-05 17:25] LABS: AMP/METHAMP Negative (Negative); BARBITURATES Negative (Negative); BENZODIAZEPINES Negative (Negative); COCAINE Negative (Negative); METHADONE POSITIVE (Negative); OPIATES Negative (Negative); PCP Negative (Negative)
--- NOTE | 2019-12-05 17:42 | NUR ---
SPOKE TO PT.'S MOTHER SHE WAS ASKING IF DRUGS WERE INVOLVED IN PT.'S FALL. SHE STATES SHE WAS NOT ABLE TO GET AHOLD OF PT FOR THREE DAYS. SHE STATES HE HAS DONE THIS BEFORE AND HAS A HISTORY OF DRUG ADDICTION TO OPIATES, ALCOHOL, AND BENZOS. HE ALSO HAS ISSUES WITH HALLUCINOGENICS AND HAS BEEN ON METHADONE. SHE IS VERY CONCERNED ABOUT HIM BEING UNDER THE INFLUENCE OF A DRUG THAT CAUSED HIM TO FALL DOWN. PT DOES NOT HAVE ANY FORM OF MENTAL DISABILITY MOTHER'S NUMBER: [phone]
[2019-12-05 20:50] VITALS: BP 163/81
[2019-12-05 21:00] VITALS: BP 163/86
--- NOTE | 2019-12-05 22:48 | NUR ---
Pt admitted to 518A @2049. Pt alert and oriented to self. Confused. Delusional. Pt voiced "the fire centers go after people with many money or first" Pt unable to explain what he meant. Admission hx and assessment as document. Pt lives at [facility]. Pt is oriented to self. Think's hes in [place]. Pt acknowledges being a member of AA and voiced attending AA meetings. Pt acknowledged being an opioid addict. Pt voiced that he used to take dilaudid and had last 2 months ago. Pt has productive cough on assessment. Pt voiced having to ambulate with walker at his fdc home. When asked if any member of pt's family have had suicide in the past, pt said no but went on to voice that his dad because he did not want his heart restarted, which i understood to be that his dad was a DNR. Pt voiced to me that his ex girlfriend daniela Oglesby is his DPOA. Ms Newton was contacted to get consent for treatment. Ms newton was suprised and voiced not even knowing what a DPOA meant. She voiced guille having that authority. Pt's mom called to inquire about that. Pt's mom informed that ex girlfriend was who he listed. Pt mom voiced that pt is not usually confused and is able to sign his own documents. Will leave the consents till am to see if pt becomes more oriented. Will do covid test and send down to lab. Will continue to monitor.
--- NOTE | 2019-12-06 07:38 | EKG ---
[facility] Donte Rasm[place] [address] ELECTROCARDIOGRAM REPORT Name: KENNEY LOYAEN FRANNY Room #: 51-A ADM IN M.R.#: [id number] Admission: 12/05/19 Attend Phys: Yvan Caldwell DO Discharge: Date of : 57 Report #: [id number] THIS REPORT FOR: cc: Franny Tovar MD FAA FACEFranny Roland MD FAA Mateo Moody MD [facility] ~ THIS REPORT FOR: //name// [facility] ED Test Date: 2019-12-05 Test Time: 14:29:38 Pat Name: RUMA LOYA Department: Room: 51 Gender: M Women Specialist: tami : 1955 Requested By: Nikki Hoffmann Order Number: [id number] MD: Mateo Roldan Measurements Intervals [place] Rate: 64 P: 70 [place]: 147 QRS: -50 QRSD: 105 T: 3 QT: 484 QTc: 500 Interpretive Statements Sinus rhythm LAFB RSR' in V1 or V2, right VCD or RVH Borderline prolonged QT interval Baseline wander in lead(s) III Compared to ECG 11/22/2019 10:02:59 Left anterior fascicular block now present T-wave abnormality no longer present Electronically Signed On 12-06-2019 7:38:33 CDT by Mateo Roldan [email or web address] <ELECTRONICALLY SIGNED> By: Mateo Roldan MD, [facility] 12/06/19 0738 1429 1429 Mateo Roldan MD, [facility] /EPI
[2019-12-06 07:49] VITALS: BP 158/83; BP 169/100
--- NOTE | 2019-12-06 09:33 | NUR ---
PATIENT WAS IN BED WHEN CARE ASSUMED. ASSISTED UP FOR BREAKFAST BY STAFF, USES ROLLER WALKER FOR MOBILITY. STAFF REPORTS THAT PATIENT HAD LOOSE STOOL THIS MORNING, DUCOSATE HELD DUE TO LOOSE STOOL. NURSE PRACTIONER (BETSY) NOTIFIED. PATIENT MOVED TO ROOM 527 BED A PENDING COVID-19 TEST RESULT. WILL MONITOR FOR SAFETY.
[2019-12-06 10:29] VITALS: BP 169/100
[2019-12-06] MEDS ORDERED: TRAZODONE HCL50 MG PO (11:39)
[2019-12-06] MEDS ORDERED: PEPCID20 MG PO (11:41)
[2019-12-06] MEDS ORDERED: VITAMIN D325 MC1 PO (11:43)
--- NOTE | 2019-12-06 14:23 | NUR ---
JOO contacted Brittany Jaspre at [facility] where pt resides and spoke to Abdoulaye. Abdoulaye said that pt lives in [place] and so they do not follow him closesly. However, he tested postive for C-diff a month ago per pt report and has been in isolation as a result. Pt has several times randomly gotten an Uber and left the building. He also has had several medical admissions to [facility]. Pt also tends to get aggressive in the evening time. Pt has lost several personal items such has his keys, wallet, and i.d. According to Abdoulaye he appears inebriated. As a result of his behavior, the facility plans to discuss with pt him moving to another facility. They do have ass. miguel. but feels pt is not appropiate for that level of care as he is labeled as an elopment risk. JOO provided an update to [facility] director. Pt has been d/c to medical unit.
--- NOTE | 2019-12-06 16:53 | NUR ---
PT TO TRANSFER OFF [facility] UNIT. P.T. NOT INITIATED BUT WILL NEED NEW P.T. ORDERS POST TX IF DEEMED MEDICAL STABLE.
== END 2019-12-06 14:20 | DRG 884 ==
LOC: ER 14:12 → SBH 17:50 → EROBS 17:50 → SBH 20:51
PROVIDERS: Student in an Organized Health Care Education/Training Program; ADMIT Psychiatry & Neurology Psychiatry; ATTEND Psychiatry & Neurology Psychiatry
DX: F01.51 Vascular dementia, unspecified severity, with behavioral disturbance (principal); B19.10 Unspecified viral hepatitis B without hepatic coma; M54.9 Dorsalgia, unspecified; G89.29 Other chronic pain; R19.7 Diarrhea, unspecified; F41.9 Anxiety disorder, unspecified; R50.9 Fever, unspecified; F32.9 Major depressive disorder, single episode, unspecified; I10 Essential (primary) hypertension; Z96.651 Presence of right artificial knee joint; Z79.899 Other long term (current) drug therapy; Z88.5 Allergy status to narcotic agent; Z88.2 Allergy status to sulfonamides; Z88.8 Allergy status to other drugs, medicaments and biological substances
CPT/HCPCS: 10880

== ENCOUNTER 2019-12-06 14:18 | Inpatient (IN) | payer MEDICARE, OTHER ==
[~2019-12-06] VITALS: Ht 177.8 cm; Wt 61.7 kg
[~2019-12-06 14:18] MED LIST changes: +PEPCID20 MG PO; +TRAZODONE HCL50 MG PO; +VITAMIN D325 MC1 PO
--- NOTE | 2019-12-06 15:42 | NUR ---
PATIENT TREANEFERED TO MED-SURGE UNIT, BED 458. REPORT CALLED TO NURSE EVLIN. PATIENT TAKEN TO NEW ROOM BY THIS LEAD BURNER AT 1530 HOURS.
[2019-12-06 16:20] VITALS: BP 165/86
--- NOTE | 2019-12-06 18:55 | NUR ---
PATIENT ARRIVED FROM AT AROUND 1600 FOR R/O C-DIFF S/T LOOSE STOOLS. PT AWARE OF STOOL SAMPLE TO BE COLLECTED. PATIENT IS STABLE WITH SOME MENTAL ISSUES. INITIAL ASSESSMENT COMPLETED WITH ASSIST FROM YELENA MONTERO. VANCOMYCIN PO ORDERED FROM PHARMACY. WILL CONTINUE TO MONITOR AND FOLLOW POC
[2019-12-06 19:53] VITALS: BP 145/79
--- NOTE | 2019-12-07 04:47 | NUR ---
ASSUMED CARE OF PT AT 1900HRS. PT AOX1-2 AND LETS NEEDS BE KNOWN. FALL PRECAUTION IN PLACE. PT IS IN ISOLATION FOR R/O CDIFF. NO STOOL PRODUCED OF NOW FOR SAMPLE. ABX TREATMENT CONTINUED. PT HAS NO IV. NO IV MEDS ORDERD OF NOW. VSS AND NO S/S OF ACUTE DISTRESS. WILL CONTINUE TO MONIOR.
[2019-12-07 06:01] LABS: ABSOLUTE NEUTROPHILS 6.6 thou/uL (1.4-8.2); BASOPHILS 0.4 % (0.0-2.0); EOSINOPHILS 0.5 % (0.0-3.0); HEMATOCRIT 34.6 % (42.0-52.0); HEMOGLOBIN 11.9 gm/dL (14.0-18.0); LYMPHOCYTES 24.9 % (24.0-44.0); MCH 30.7 pg (26.0-34.0); MCHC 34.4 g/dL (28.0-37.0); MCV 89.3 fL (80.0-100.0); MONOCYTES 5.7 % (1.0-8.0); POLYS 68.5 % (36.0-66.0); RBC 3.88 mil/uL (4.50-6.00); RDW 14.3 % (10.5-14.5); WBC 9.6 thou/uL (4.0-11.0)
[2019-12-07 06:13] LABS: CALCIUM 8.6 mg/dL (8.5-10.1); CREATININE 0.9 mg/dL (0.7-1.3); MAGNESIUM 2.5 mg/dL (1.8-2.4); POTASSIUM 3.2 mmol/L (3.5-5.1)
[2019-12-07 06:19] LABS: PLATELET COUNT 376 thou/uL (150-400)
[2019-12-07 07:57] VITALS: BP 157/90
[2019-12-07 15:25] VITALS: BP 161/96
--- NOTE | 2019-12-07 15:43 | NUR ---
PT ADMITTED RELATED TO C-DIFF. CM REVIEWED CHART AND SPOKE WITH CARE TEAM. CM FAMILIAR WITH PT FROM PREVIOUS ADMISSIONS. PT RESIDES IN INDEPENDENT LIVING APT AT [facility]. PT HAD USED A FWW TO ASSISIT WITH MOBILITY DIRECTOR HOME. PT HAS HAD FREQUENT FALLS DIRECTOR HOME. PT HAD BEEN ON [facility] OVERNIGHT PIOR TO ADMITTING TO 4W RELATED TO HALLUCINATIONS. PT AND OT RECOMMENDING POST ACUTE CARE STAY. CM SPOKE WITH THIS THIS DAY VIA PHONE AND HE CONFIRMED THAT ABOVE. HE INDICATED [facility]. HE WAS AGREEABLE WITH SKILLED REFERRAL BEING SENT TO [facility] HIS MOTHER RESIDES THERE [place]. CM TO SEND REFERRAL TO [facility] FOR REVIEW FOR POSSIBLE SKILLED POST ACUTE CARE STAY.
--- NOTE | 2019-12-07 16:32 | H ---
[facility] [place] [address] HISTORY AND PHYSICAL Name: RUMA LOYA Room #: 458-P [facility] M.R.#: [id number] Admission: 12/06/19 Attend Phys: Scott Tovar MD, FAAF Discharge: Date of : 57 Report #: [id number] THIS REPORT FOR: cc: Scott Tovar MD FAAFP FACEP Scott Tovar MD FAAFP FACEP Scott Tovar MD FAAFP FACEP ~ CC: Scott Corado CHIEF COMPLAINT: Mental status changes, fall, diarrhea. HISTORY OF PRESENT ILLNESS: The patient is a 64-year-old white male, patient of mine over a number of years. He has had frequent hospitalizations here this year with falls, mental status changes and Clostridium difficile colitis. He fell at his independent living facility last night, was evaluated here in the Emergency Room, spent the night in the adult psych simon, transferred to my service today with diarrhea, possible recurrence of Clostridium difficile. Chart indicates that he had hallucinations. Per my interview, he has been ill in his opinion secondary to withdrawal from Xanax and methadone. He does say he is having some loose stools. PAST MEDICAL HISTORY: Chronic mid back pain, bulging disk. Sacral mass removed, benign in 2006. Bipolar affective disorder, anxiety, depression, hypertension, right total knee arthroplasty, colonoscopy, phantom seizure in 2017, hepatitis B, pelvic injury, hip surgery, anemia, Clostridium difficile colitis. MEDICATIONS: Methadone 10 mg 1 p.o. b.i.d., Lopressor, metoprolol tartrate 50 mg 1 p.o. b.i.d. RECENTLY DISCONTINUED MEDICATIONS: Alprazolam and vancomycin. ALLERGIES: SULFA, CODEINE, HYDROCODONE, AND TRAMADOL. FAMILY HISTORY: Grandfather and several uncles with alcoholism. SOCIAL HISTORY: Nonsmoker, nondrinker; lives in independent living at [facility] and mother in [facility]. According to the mental health history done last night, he reports long history of drug abuse that started at age 19 and included misuse of Valium and pain pills, as well as IV heroin. Denies history of suicidal ideation or attempts. REVIEW OF SYSTEMS: GENERAL: No fever, chills, nausea, vomiting, diarrhea. EYES: No visual changes. He does have a contusion in the left periorbital region of his face. ENT: No problems with hearing, swallow, taste or smell. [facility] [address] [place] [address] HISTORY AND PHYSICAL Name: RUMA LOYA Room #: 458-P [facility] M.R.#: [id number] Admission: 12/06/19 Attend Phys: Scott Tovar MD, FAAF Discharge: Date of : 57 Report #: [id number] CARDIOVASCULAR: No chest pain or palpitations. RESPIRATORY: No difficulty breathing. GASTROINTESTINAL: No abdominal pain. He has had some loose stools. GENITOURINARY: No problems urinating. MUSCULOSKELETAL: Contusion to left face. History of arthritis with left total knee arthroplasty and some ongoing joint pain including mid back pain chronically. NEUROLOGIC: Mental status changes with global weakness. PSYCHIATRIC: Anxiety and depression historically, most recently hallucinations. Remainder of system reviewed was checked and are negative. OBJECTIVE: VITAL SIGNS: Temperature is 37.0, pulse 67, respirations 14, blood pressure 169/100, pulse ox on room air is 99%. GENERAL: He is alert, appears fatigued. He has a left periorbital contusion. HEENT: Pupils are equal, round, reactive to light and accommodation. Extraocular muscles are intact. Pharynx is unremarkable. NECK: Supple. COR: S1, S2. CHEST: Clear. ABDOMEN: Soft, nontender. EXTREMITIES: No cyanosis, clubbing or edema. NEUROLOGIC: Intact without focal neurologic deficit. He has some slowing of his speech, but does speak well, answers questions appropriately. LABORATORY EVALUATION: CBC: White count is 15.7, hemoglobin 12.9, hematocrit 37.8, platelets 479,000. Differential white count; 81.3% segmented neutrophils, 13.6% lymphocytes, 4.5% monocytes. Chemistry: Sodium 136, potassium 3.4, chloride 99, CO2 of 23, anion gap 14, BUN 41, creatinine 1.0, estimated glomerular filtration rate 75. Glucose 89, calcium is 8.7, total bilirubin 1.8, AST 23, ALT 17, alkaline phosphatase 116, ammonia 10, creatinine kinase 122, troponin less than 0.06, total protein 8.2 and albumin 4.0. Urinalysis positive for high specific gravity greater than 1.030, 2+ protein, 1+ ketones were noted, 1+ bilirubin, no white cells, no red cells, negative leukocyte esterase. Coronavirus test was negative. Alcohol level was less than 10. Ammonia level was 10. CT scan of the C-spine showed no acute abnormality. CT head without contrast showed no evidence of acute intracranial hemorrhage or other acute intracranial abnormality. ASSESSMENT: Fall, mental status changes, diarrhea, history of Clostridium difficile colitis, neurocognitive disorder. PLAN: Admit to acute care hospitalization. Check Clostridium difficile toxin; [facility] [address] [place] [address] HISTORY AND PHYSICAL Name: RUMA LOYA Room #: 458-P [facility]#: [id number] Admission: 12/06/19 Attend Phys: Scott Tovar MD, PRAMOD Discharge: Date of : 57 Report #: [id number] best to discontinue methadone and Xanax if taking these as patient no longer a good candidate for these medications. <ELECTRONICALLY SIGNED> By: Scott Tovar MD, MAIRA, FACETravis 12/07/19 1632 [id number] Scott Tovar MD, MAIRA, FACETravis /nt
--- NOTE | 2019-12-07 16:52 | NUR ---
BP: 161/96, HR 58, Dr. Tovar called and left a voice mail. Patient checked. denied pain, no n/v.
[2019-12-07 20:32] VITALS: BP 143/79
[2019-12-08 05:51] LABS: CALCIUM 8.6 mg/dL (8.5-10.1); CREATININE 0.9 mg/dL (0.7-1.3); POTASSIUM 3.4 mmol/L (3.5-5.1)
--- NOTE | 2019-12-08 05:56 | NUR ---
Assumed pt care at 1900. A/OX2-3,pt doesn't call for help and needs frequent reminders to use the call light. VSS. Up with Ax1. Incontinent/continent of bowels,stool for cdiff obtained, special contact isolation maintained. Denies pain on assessment even he had c/o to MD about pain.Fall precautions in place.
[2019-12-08 07:56] VITALS: BP 149/99
--- NOTE | 2019-12-08 12:15 | NUR ---
ASSUMED CARES AT 0700. PT AWAKE, ORIENTED*4. VERY SLEEPY IN THE AFTERNOON AFTER PHYSICAL THERAPY. VITALS REMAIN STABLE. PT DENIES PAIN. IV ON RIGHT FOREARM REMAINS INTACT AND PATENT, SL. PT CONTINUES TO HAVE LOOSE STOOLS, INCONTINENT OF BM THIS AM, C-DIFF TEST PENDING, ISOLATION PRECAUTIONS MAINTAINED. PT UP WITH 1 SBA, GB AND WALKER AND TOLERATED WELL. Q1H VISUAL CHECKS. CALL LIGHT WITHIN REACH. FALL PRECAUTIONS IN PLACE
--- NOTE | 2019-12-08 14:41 | NUR ---
FAXED REFERRAL TO [facility] RECEIVED CONFIRMATION AND LEFT MSG WITH KAY IN ADM THAT THERE WILL BE NO WEEKEND DISCHARGE AND TO SUBMIT FOR AUTH IF THEY CAN ACCEPT. DP TO FOLLOW.
--- NOTE | 2019-12-08 15:22 | NUR ---
PT AND OT RECOMMENDING POST ACUTE CARE STAY. CM SPOKE WITH PT YESTERDAY AND HE WAS ECPTIVE TO REFERRAL BEING SENT TO [facility] REFERRAL SENT. STILL AWAITING CDIFF RESULTS. PT ON ORAL ABX. DR. MONTELONGO FOLLOWING. PT MIGHT NEED LEVEL II SCREENING HE HAD BEEN ON SBHU OVERNIGHT PRIOR TO SKILLED PLACEMENT. CM TO FOLLOW INDICATED WITH DC PLANNING.
[2019-12-08 19:14] VITALS: BP 144/83
--- NOTE | 2019-12-09 01:40 | NUR ---
VSS-AFEBRILE. ALERT AND ORIENTED X 4 DURING WHOLE SHIFT. NO REPORTED DIARRHEA. NO C/O PAIN. RESTED WELL THROUGH NIGHT WITH FEW NEEDS. CALLS APPROPRIATELY WHEN NEEDING ASSISTANCE. FALL PRECAUTIONS IN PLACE.
[2019-12-09 07:48] VITALS: BP 143/87
[2019-12-09 08:56] LABS: BASOPHILS 0.5 % (0.0-2.0); HEMATOCRIT 34.8 % (42.0-52.0); LYMPHOCYTES 33.8 % (24.0-44.0); MCH 30.8 pg (26.0-34.0); MCHC 34.6 g/dL (28.0-37.0); MCV 89.1 fL (80.0-100.0); MONOCYTES 7.5 % (1.0-8.0); PLATELET COUNT 339 thou/uL (150-400); POLYS 56.2 % (36.0-66.0); WBC 7.2 thou/uL (4.0-11.0)
[2019-12-09 09:16] LABS: ALBUMIN 3.4 g/dL (3.4-5.0); CALCIUM 8.5 mg/dL (8.5-10.1); POTASSIUM 3.5 mmol/L (3.5-5.1); TOTAL BILIRUBIN 1.2 mg/dL (0.2-1.0); TOTAL PROTEIN 6.8 g/dL (6.4-8.2)
--- NOTE | 2019-12-09 10:27 | NUR ---
ASSUMED CARE AT 0700. PT IS ALERT AND ORIENTED, BUT VERY FORGETFUL AND POOR HISTORIAN. VSSA/RA, HTN NOTED. NO COMPLAINTS OF PAIN. TOLERATING DIET WITHOUT LOOSE STOOLS X 24 HOURS PER REPORT. PIV SL WITHOUT ISSUES. SBA, STEADY GAIT. UP OOB MUCH POSSIBLE TODAY PER MD REQUEST. FALL PRECAUTIONS IN PLACE. BED ALARM ON. EDUCATED PT ON CALLING FOR ASSISTANCE WHEN NEEDED. CALL LIGHT IN REACH. WILL CONTINUE TO MONITOR
[2019-12-09 17:31] VITALS: BP 147/95
[2019-12-09 21:40] VITALS: BP 151/99
--- NOTE | 2019-12-10 01:13 | NUR ---
VSS-AFEBRILE. NO STOOLS OVERNIGHT. NO REPORTED PAIN. C/O GENERALIZED FATIGUE AND WEAKNESS. CALLS APPROPRIATELY FOR ANY NEEDED ASSISTANCE.
[2019-12-10 07:51] VITALS: BP 150/93
[2019-12-10 15:55] VITALS: BP 149/90
[2019-12-10 20:16] VITALS: BP 150/87
--- NOTE | 2019-12-10 20:21 | NUR ---
Assumed patient care at 0715. Patient continues in Isolation for C-Diff. Vital signs have been stable, LSCTA (diminished), skin is clean, warm, dry and intact; he denies pain. Patient is alert and oriented x's 4. ABD is soft and non-tender, BS x's 4. He has not had any loose stools today. He reported "one formed bowel movement." IV in right FA is saline locked. Report given to on-coming nurse. Please note that patient has been having ice cream (staff getting upon request), this causes patient to have loose stools.
--- NOTE | 2019-12-11 02:51 | NUR ---
ASSUMED PT CARE AROUND 1929. AXOX3. ISO FOR ACTIVE C.DIFF. VSS. NO S/S ACUTE DISTRESS NOTED OR REPORTED AT THIS TIME. WILL CONT TO MONITOR FOR ANY CHANGES IN CONDITION.
[2019-12-11 04:31] LABS: CALCIUM 8.3 mg/dL (8.5-10.1); POTASSIUM 3.9 mmol/L (3.5-5.1)
[2019-12-11 04:32] LABS: ABSOLUTE NEUTROPHILS 4.4 thou/uL (1.4-8.2); BASOPHILS 0.7 % (0.0-2.0); EOSINOPHILS 3.5 % (0.0-3.0); HEMATOCRIT 33.9 % (42.0-52.0); HEMOGLOBIN 11.5 gm/dL (14.0-18.0); LYMPHOCYTES 35.7 % (24.0-44.0); MCH 30.1 pg (26.0-34.0); MCHC 33.9 g/dL (28.0-37.0); MCV 88.8 fL (80.0-100.0); MONOCYTES 6.9 % (1.0-8.0); PLATELET COUNT 279 thou/uL (150-400); POLYS 53.2 % (36.0-66.0); RBC 3.82 mil/uL (4.50-6.00); RDW 13.9 % (10.5-14.5); WBC 8.2 thou/uL (4.0-11.0)
[2019-12-11 08:27] VITALS: BP 159/99
--- NOTE | 2019-12-11 13:47 | NUR ---
FAXED REFERRAL TO [facility] RECEIVED CONFIRMAATION AND LEFT MSG WITH DIANNA IN ADM. DP TO FOLLOW.
--- NOTE | 2019-12-11 14:16 | NUR ---
STOOL SAMPLE SENT TO LAB TO TEST FOR CDIFF. RESULTS PENDING. PT ON PO ABX. PT AND OT RECOMMENDING POST ACUTE CARE STAY. JKV DECLINED. CM CALLED PT'S MOTHER AND SHE INDICATED THAT SHE THOUGH HE WOULD PREFER TO HAVE REFERRALS SENT TO SD FACILITIES FOR REVIEW FOR POSSIBLE ADMISSION. REFERRALS SENT TO [facility]. CM FAXED DR. MONTELONGO PT'S LEVEL II SCREENING FOR ASSISTANCE WITH COMPLETION. CM TO FOLLOW INDICATED WITH DC PLANNING.
[2019-12-11 15:19] VITALS: BP 148/91
[2019-12-11 19:48] VITALS: BP 140/99
--- NOTE | 2019-12-11 21:11 | NUR ---
REPORT RECEIVED FROM MARGIE Winter/RN ASSUMED CARE OF PATIENT AROUND 1600. PATIENT ALERT AND ORIENTED X 3, PLEASANT. NO C/O PAIN AT THIS TIME. PATIENT IN ISOLATION DUE TO C-DIFF, WAITING ON STOOL RESULTS. PATIENT UP WITH ASSIST X1. PLAN FOR PATIENT TO GO TO REHAB ON DISCHARGE, PATIENT NEEDS TO SEE DR MONTELONGO FOR LEVEL 2 SCREENING PRIOR TO DISCHARGE. WILL CONTINUE TO MONITOR.
--- NOTE | 2019-12-12 05:15 | NUR ---
Assumed pt care at 1900. A/OX3,confused but able to make needs known. VSS,denies pain on assessment. Voiding per urinal though had accidents whne doing so. Fall precautions in place,calling approp niurka.
[2019-12-12 09:02] VITALS: BP 145/95
--- NOTE | 2019-12-12 12:15 | NUR ---
FAXED REFERRAL TO [facility] SPOKE WITH KUSHAL IN ADM THEY CANNOT ACCEPT THEY ARE OUT OF TRANSITION ROOMS AND WILL NOT HAVE ONE AVAILABLE ANY TIME SOON. [facility]PT PT ONLY HAS 5 DAYS LEFT WITH HIS INSURANCE AND MEDICAID SECONDARY. FA[facility]ED [facility]ERRAL TO [facility] LEFT MSG WITH ANGIE IN ADM. DP TO FOLLOW.
[2019-12-12 15:05] VITALS: BP 129/85
--- NOTE | 2019-12-12 15:18 | NUR ---
[facility] INDICATED THEY COULDN'T ACCEPT PT. AWAITING RESPONSE FROM [facility]. LEVEL II SCREENING PAPERWORK COMPLETED JUST WAITING FOR ACCEPTING FACILITY. CM TO PROVIDE PT WITH LIST TO REVIEW FOR WHERE HE WOULD LIKE ADDITIONAL REERRALS SENT FOR REVIEW. CM TO FOLLOW INDICATED WITH DC PLANNING.
--- NOTE | 2019-12-12 17:06 | NUR ---
FAXED REFERRAL TO [facility] SPOKE WITH MAHOGANY GUSMAN LIASON SHE RECEIVED AND IS REVIEWING, FAXED REFERRAL TO [facility] RECEIVED CONFIRMATION AND WILL F/U WITH ADMISSIONS IN THE MORNING. FAXED REFERRAL TO [facility] RECEIVED CONFIRMATION AND LEFT MSG WITH ADM. FAXED REFERRAL TO [facility] RECEIVED CONFIRMATION AND WILL F/U WITH SEE IN ADM IN THE MORNING. DP TO FOLLOW.
--- NOTE | 2019-12-12 20:22 | NUR ---
ASSUMED CARE OF PATIENT AT 0715, PATIENT ALERT AND ORIENTED X 4. UP WITH ASSIST X 1 WITH GB AND WALKER. PATIENT DENIES PAIN. PAIENT HAD SHOWER PER OT TODAY. PATIENT VOIDS PER URINAL. CM SENT INFO ON FACILITES TODAY AND PATIENT PICKED OUT FACILITIES, CM WILL START SENDING REFERRALS FOR PLACEMENT. WILL CONTINUE TO MONITOR.
[2019-12-12 22:00] VITALS: BP 148/93
--- NOTE | 2019-12-13 02:23 | NUR ---
ASSUMED PT CARE [id number]. PT IS ALERT & ORIENTED X 4. PT TOOK EVENING MEDS. PT DENIES PAIN. PT CALLS OUT APPROPRIATELY WHEN HE NEEDS ANYTHING. PT SLEEPS THROUGH THE NIGHT. PT HAS BED ALARM ON. WILL CONTINUE TO MONITOR.
[2019-12-13 07:15] VITALS: BP 150/102
--- NOTE | 2019-12-13 09:41 | NUR ---
Nutrition: Assessed due to LOS, plus new RD consult for malnutrition. Admit s/p fall, mental status changes, diarrhea. C diff better, pt finishing course of antibiotics per provider notes. Hx: bipolar affective disorder, anxiety, depression, HTN. On a regular diet, eating very high PO amounts. Meal average per last 7 meals = 75%. Meal average yesterday alone was 93%. Pt voices great appetite, but did recently lose wt and wants more kcals. Weight hx shows period of up/down wt gain followed by wt loss. 08/13/19: 149# 08/30/19: 141# 09/23/19: 162# 11/13/19: 154# CBW now 136#. This reflects an 18# or 11.7% wt loss in < 1 mo. Pt currently meets 1 criterion for severe malnutrition. RD recommended highest calorie supplement Ensure Enlive. Pt agreeable to BID. Nearing discharge to rehab facility. RD Strongly encouraged pt to inquire about and continue supplements at facility. Note hx low vitamin D back in July (17.3 ng/mL). Recommend adding supplement. Otherwise, w/ supplement interventions, high PO, and nutrition ed- low risk.
--- NOTE | 2019-12-13 13:05 | NUR ---
PT CARE ASSUMED AT 0700. A&Ox4. NO BEHAVIORAL ISSUES. IV PATENT WITH NO REDNESS OR EDEMA, SALINE LOCKED. USES URINAL AND UP TO THE BATHROOM WITH STANDBY. COVID TEST COMPLEETED FOR REHAB. AWAITING RESULTS. PT ON BOARD. ROOM AIR. FALL PROTOCOL IN PLACE. WILL CONTINUE TO MONITOR. CALL LIGHT WITHIN REACH.
--- NOTE | 2019-12-13 14:35 | NUR ---
[facility] INDICATED THEY CAN'T ACCEPT PT. [facility] STILL LOOKING AT REFERRAL. MESSAGES LEFT WITH [facility] AND [facility] NO RESPONSE YET. CM FOLLOWING TO TRY TO FIND ACCEPTING SKILLED REHAB FACILITY. CM REACHED OUT TO ASHELY WITH [employer] ABOUT ASSISTING PT [facility] SECONDARY MEDICAID APPLICATION.
[2019-12-13 15:42] VITALS: BP 120/85
--- NOTE | 2019-12-13 16:57 | NUR ---
FAXED THERAPY NOTES TO [facility] RECEIVED CONFIRMATION AND SPOKE WITH KAYLEIGH IN ADM. DP TO FOLLOW.
[2019-12-13 20:01] VITALS: BP 153/99
--- NOTE | 2019-12-14 04:44 | NUR ---
ASSUMED CARE OF PT AT APPROXIMATELY 1900. PT IS A/O X4 AND UP SBA TO THE BR. WILL USE URINAL AT THE BEDSIDE. NO C/O PAIN OR DISCOMFORT THIS SHIFT. VSS. PT IS NOW IN HIS BED AND APPEARS TO BE SLEEPING. FALL PRECAUTIONS ARE IN PLACE, CALL LIGHT IS WITHIN REACH.
[2019-12-14 07:19] VITALS: BP 142/99
[2019-12-14 14:50] VITALS: BP 138/93
--- NOTE | 2019-12-14 15:51 | NUR ---
WE ARE AWAITING INSUANCE AUTH FOR [facility]. SECONDARY MEDICAID APPLICAITON OBTAINED. CM NOTIFIED PT THAT WE ARE JUST WAITING ON INSURANCE. PT IS FRUSTRATED. CM TO FOLLOW INDICATED WITH DC PLANNING.
--- NOTE | 2019-12-14 19:56 | NUR ---
Assumed patient care at 0715. Vital signs stable, LSCTA, ABD is soft and non-tender, BS x's 4, skin is clean, warm, dry and intact; he denies pain. Patient to be Discharged to [facility] upon Insurance approval. Patient is very upset because he want's previous medications that he was placed on previously. Patient called down to the in house pharmacy and requested a refill of Xanax, telling them "I am being discharged." Pharmacy called this nurse whom confirmed that patient was not being discharged and "do not fill it." Patient was also asking for FASHION MODEL to find him some pants so he could leave. Patient was taken off of this medication per Dr Tovar. This nurse alerted Medical Record Specialist and Dr Tovar about the above. Dr Tovar contacted pharmacy and cancelled previous prescriptions for Xanax. Dr Tovar also visited with patient in person this afternoon. Patient has not mentioned wanting to leave since. Report given to on-coming nurse.
[2019-12-14 20:05] VITALS: BP 135/82
--- NOTE | 2019-12-15 05:02 | NUR ---
ASSUMED CARE OF PT AT 1900. PT IS A/O X4. NO C/O PAIN OR DISCOMFORT. VSS. PT IS NOW IN HIS BED LYING DOWN AND APPEARS TO BE SLEEPING. FALL PRECAUTIONS ARE IN PLACE, CALL LIGHT IS WITHIN REACH.PT IS PROGRESSING TOWARDS PLAN OF CARE GOALS. WILL CONTINUE TO MONITOR.
[2019-12-15 07:27] VITALS: BP 122/81
--- NOTE | 2019-12-15 12:09 | NUR ---
cm team received phone call from kaiden to the main office stated " i am ready to get out of here dr hudson said he go it all taken care of"/kaiden. cm left him know we still needing insurance auth to proceeded with dc and dr hudson go the hospital stay approved. " no one knows what they are talking about around there"/kaiden. cm team passed on information to bedside nurse korey about pt upset. cm team passed on information to gal. will cont following as needed for dc needs.
[2019-12-15 15:22] VITALS: BP 131/82
--- NOTE | 2019-12-15 15:37 | NUR ---
STILL AWAITING INSURANCE AUTH FOR PT TO GO TO [facility]. SHOULD AUTH BE RECIEVED THIS WEEKEND PLEASE CONTACT SOHEILA AT TO FACILITATE DISCHARGE. IF SO[facility]ILA CAN'T BE REACHED TRY KAYLEIGH AT . FAX ORDERS TO . CALL REPORT TO . SHOULD AUTH NOT BE OBTAINED AND PT AND PHYSICIAN BE AGREEABLE WITH PT DISCHARGING BACK TO HIS INDEPENDENT LIVING APARTMENT AT [facility] WITH HOME HEALTH SERVICES CONTACT [facility] AT AND FAX HOME HEALTH ORDERS TO . IF PT TO DC BACK TO HIS APARTMENT WITH HH PER PHYSICAIN TRANSPORT CAN BE ARRANGED THROUGH [facility] AT .
--- NOTE | 2019-12-15 20:25 | NUR ---
Assumed patient care at 0715. Vital signs stable, LSCTA, BS x's 4, ABD soft and non-tender, skin is clean, warm, dry and intact. Patient requested and received Ibuprofen 400mg po at 0900 for bilateral knee pain "level six." This medication was not effective. Patient became very agitated again today about "having to stay here longer!" He called Case Management, was yelling at them, threatening to go AMA. Patient complained all throughout this shift until he had a "one time dose" of Clonidine. He reported that it helped with his anxiety. Later in the day he reported that his ears "finally stopped ringing." Patient to be discharged after Insurance approval to [facility]. Report given to on-coming nurse.
[2019-12-15 21:01] VITALS: BP 143/98
--- NOTE | 2019-12-16 04:10 | NUR ---
PATIENT ALERT AND ORIENTED X4. CHANGE OF SHIFT PATIENT WAS VERY ANXIOUS AND RUDE. PACING THE FLOOR, CURSING AND THROWING THINGS. THIS BEGAN DURING THE AM SHIFT WHEN HE RECEIVED A ONETIME ORDER FOR CLONIDINE 0.1MG PO WHICH HE STATED REALLY HELPED HIM AND CALMED HIM DOWN. UPON THIS NURSE'S NIGHT MEDICATION PASS HE ASKED FOR HIS CLONIDINE AND WAS INFORMED THAT IT WAS ONLY FOR THAT ONE TIME. PATIENT JUMPED OUT OF BED AND THREW HIS COVERS ON THE FLOOR RANDA AND MUKUL STATED THAT HE WANTED OUT AND WAS GOING AMA. THIS NURSE TOOK HIM THE PAPERWORK WHICH HE SIGNED, CURSING. NIGHT SUPV WAS NOTIFIED ALONG WITH BAND SCROLL SAW OPERATOR. THE BAND SCROLL SAW OPERATOR STATED THAT DR. YOUNGER WOULD NEED TO BE NOTIFIED OF AMA STATUS AND POSSIBLY A NEW ORDER. THIS NURSE CONTACTED HIM AND RECEIVED ANOTHER ONETIME ORDER FOR THE SAME HOWEVER, STATED IF THE PATIENT DID NOT WANT THE ORDER TO LET HIM GO AMA. PATIENT AGREED TO TAKE THE CLONIDINE AND HE HAS BEEN APOLOGETIC AND CALM DURING THE NIGHT AT THE TIME OF THIS NOTE. TAKING MEDICATION. WILL MONITOR.
[2019-12-16 08:28] VITALS: BP 126/86
[2019-12-16 15:12] VITALS: BP 125/79
--- NOTE | 2019-12-16 16:59 | NUR ---
A/O, coopeprative, claiming that he uderstood he should be patient waiting for anxiety medication. Denied pain, no n/v.
--- NOTE | 2019-12-17 03:21 | NUR ---
PATIENT ALERT AND ORIENTED X4. PLEASANT AND COOPERATIVE. C/O HEADACHE AND RESTLESSNESS. THIS NURSE GAVE HIM PRN CLONIDINE. CLONIDINE WAS GIVEN EARLY AND IBUPROFEN AND ZOFRAN AT 0140 WHEN HE C/O HEADACHE AND NOT BEING ABLE TO SLEEP. RESTING QUIETLY AT TIME OF NOTE. WILL MONITOR.
[2019-12-17 08:45] VITALS: BP 124/82
[2019-12-17 15:33] VITALS: BP 113/77
[2019-12-17 19:09] VITALS: BP 121/67
--- NOTE | 2019-12-17 19:31 | NUR ---
ASSUMED CARE OF PT AT SHIFT CHANGE. ASSESSMENT CHARTED. MEDS GIVEN PER JUL. PT A&OX4. C/O PAIN TREATED WITH PO MEDS WITH PARTIAL RELIEF. PLAN FOR DISCHARGE TOMORROW. WILL CONTINUE TOP MONITOR AND FOLLOW POC.
--- NOTE | 2019-12-17 20:00 | NUR ---
PATIENT AT REPORT DURING SHIFT CHANGE REQUESTED HIS CLONIDINE. STATED THAT HIS NERVES WERE BAD AND THAT HE HAD TO HAVE IT SAURAV. HE WAS ASSURRED THAT AFTER REPORT ON MY PATIENTS HE WOULD RECEIVE. PATIENT CALLED OUT BEFORE THAT TIME AND THIS NURSE MADE SURE HE RECEIVED THE MEDICATION AT FIRST MED PASS. PATIENT UP IN ROOM PACING. WILL MONITOR.
--- NOTE | 2019-12-18 04:47 | NUR ---
PATIENT ALERT AND ORIENTED X4. UP ADLIB IN ROOM. C/O PAIN TO RIGHT KNEE AND MEDICATED WITH GOOD RESULTS. ANXIOUS AT BEGINNING OF SHIFT AND REQUESTED CLONIDINE WHICH WAS GIVEN. PATIENT RECEIVED IBUPROFEN AND ZOFRAN LATER IN THE SHIFT WHEN HE STATED HE COULD NOT SLEEP. [facility] OR HIS HOME AT [facility]. WILL MONITOR.
[2019-12-18 07:34] VITALS: BP 127/87
--- NOTE | 2019-12-18 11:52 | NUR ---
I have reviewed the documentation by Piedad Landers from 12/15/19 to 12/15/19 and I concur with it. Dahiana Hardin
[2019-12-18 15:01] VITALS: BP 127/87
[2019-12-18 15:24] VITALS: BP 145/92
--- NOTE | 2019-12-18 15:59 | NUR ---
PT TO DISCHARGE LATER TODAY TO HOME AT [facility] WITH . FAXED REFERRAL TO [facility] SPOKE WITH ARNALDO IN INTAKE SHE CAN ACCEPT FOR . PLEASE FAX DC ORDERS/SUMMARY TO [phone]. [facility] IS AWARE OF PT DISCHARGING TODAY AND THEY WILL NOTIFY PT TIME OF VISITS.
--- NOTE | 2019-12-18 16:30 | NUR ---
[facility] DENIED SKILLED AUTH TO OP CENTER. DR. YOUNGER COMPLETED PEER TO PEER AND DENIAL WAS UPHELD. DR. YOUNGER INDICATED HE WOULD DC PT HOME TO HIS INDEPENDENT LIVING APARTMENT AT [facility] THIS DAY WITH HOME HEALTH SERVICES. CM NOTIFIED PT HE IAS AGREEABLE. [facility] IS ARRANGED FOR [address]. ON[address] DR[address] YOUNGER COMPLETES DISCHARGE ORDERS AND SUMMERY THEY WILL NEED TO BE FAXED TO [facility] AT . THEY ARE AWARE PT WILL BE DISCHARGING HOME THIS EVENING. LEVEL II SCREENING WAS SUBMITTED WE WERE STILL AWAITING RESPONSE BUT IT IS NO LONGER NEEDED. NURSE TO NOTIFY PT'S MOTHER. NO OTHER CM INTERVENTION INDICATED. CASE CLOSED.
[2019-12-18] MEDS ORDERED: CHOLESTYRAMINE L4 GM PO (18:33)
[2019-12-18] MEDS ORDERED: DICYCLOMINE HCL20 MG PO (18:33)
[2019-12-18] MEDS ORDERED: BUSPIRONE HCL5 MG PO (18:33)
[2019-12-18] MEDS ORDERED: CATAPRES0.1 MG PO (18:33)
[2019-12-18 19:29] VITALS: BP 135/87
--- NOTE | 2019-12-18 20:28 | NUR ---
Received awake on bed. Due medications given as prescribed, able to swallow meds w/o difficulty. On room air. Vital signs stable. On regular diet- tolerating well; no nausea, no vomiting and no abdominal pain noted; with supplements prescribed as well. On MS. With SL at R FA- intact and flushing well. Assisted in ADLs. Falls bundle in place. Still a/w insurance authorization re: discharge disposition. To continue monitoring patient. CM called and said pt will be coming back to his independent living with home health instead; insurance denied SNF. Dr Tovar to come back this evening to do discharge orders; CM to set up transport; discharge summary and instructions to be faxed- sent by US. Pt's mother to be called. Pt seen and examined by Dr Tovar this evening, discharge orders made. Discharge instructions, follow up schedule, HH contact number given and instructed to patient. Discharge forms signed. Discharge summary and instructions faxed to HH as per CM's instruction; tried to call HH agency but said they could not verify tonight if documents went thru, to try tomorrow. Tried to call pt's mother to inform re: discharge- no one's picking up- unable to leave voicemail- needs to be set up. Pt fetched by transport at 1930 via wheelchair, brought out of the unit via wheelchair and his personal belongings. IV discontinued. Pt discharged.
== END 2019-12-18 20:19 | disposition home health service (06) | DRG 371 ==
LOC: 4W 14:18
PROVIDERS: Internal Medicine; Nurse Practitioner; ADMIT Internal Medicine; ATTEND Family Medicine
DX: A04.72 Enterocolitis due to Clostridium difficile, not specified as recurrent (principal); G92 Toxic encephalopathy; F11.20 Opioid dependence, uncomplicated; R41.0 Disorientation, unspecified; G89.29 Other chronic pain; M54.9 Dorsalgia, unspecified; F31.9 Bipolar disorder, unspecified; F41.9 Anxiety disorder, unspecified; I10 Essential (primary) hypertension; Z96.651 Presence of right artificial knee joint; E87.6 Hypokalemia; R41.9 Unspecified symptoms and signs involving cognitive functions and awareness; S05.12XA Contusion of eyeball and orbital tissues, left eye, initial encounter; W18.39XA Other fall on same level, initial encounter; Y93.89 Activity, other specified; Y92.098 Other place in other non-institutional residence as the place of occurrence of the external cause; Y99.8 Other external cause status; Z88.6 Allergy status to analgesic agent; Z88.2 Allergy status to sulfonamides; Z81.1 Family history of alcohol abuse and dependence; Z86.19 Personal history of other infectious and parasitic diseases; Z03.818 Encounter for observation for suspected exposure to other biological agents ruled out
CPT/HCPCS: 10047

== ENCOUNTER 2020-03-25 10:01 | Emergency (ER) | payer MEDICARE ==
[~2020-03-25] VITALS: Ht 177.8 cm; Wt 68.0 kg
[~2020-03-25 10:01] MED LIST changes: +BUSPIRONE HCL5 MG PO; +CATAPRES0.1 MG PO; +CHOLESTYRAMINE L4 GM PO; +DICYCLOMINE HCL20 MG PO
--- NOTE | 2020-03-25 11:34 | EKG ---
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 Grounds: : 1955 Requested By: Ashanti Parekh Order Number: [id number] MD: Pelon Darnell Measurements Intervals [place] Rate: 58 P: 43 W[place]: 164 QRS: -55 QRSD: 109 T: 55 QT: 439 QTc: 432 Interpretive Statements Sinus rhythm Abnormal R-wave progression, early transition Left ventricular hypertrophy Compared to ECG 12/05/2019 14:29:38 Left ventricular hypertrophy now present Right ventricular hypertrophy no longer present Electronically Signed On 03-25-2020 11:34:12 [employer] by Pelon Darnell [email or web address] <ELECTRONICALLY SIGNED> By: Pelon Darnell MD, [facility] 03/25/20 1134 [id number] Pelon Darnell MD, [facility] /EPI
[2020-03-25 12:15] LABS: ABSOLUTE NEUTROPHILS 3.8 thou/uL (1.4-8.2); EOSINOPHILS 3.8 % (0.0-3.0); HEMATOCRIT 40.6 % (42.0-52.0); HEMOGLOBIN 13.7 gm/dL (14.0-18.0); LYMPHOCYTES 34.3 % (24.0-44.0); MCH 30.8 pg (26.0-34.0); MCHC 33.8 g/dL (28.0-37.0); MCV 91.2 fL (80.0-100.0); PLATELET COUNT 244 thou/uL (150-400); POLYS 52.9 % (36.0-66.0); RBC 4.45 mil/uL (4.50-6.00); RDW 13.7 % (10.5-14.5); WBC 7.2 thou/uL (4.0-11.0)
[2020-03-25 12:24] LABS: ANION GAP 8 mmol/L (7-16); BUN 17 mg/dL (7-18); CALCIUM 9.2 mg/dL (8.5-10.1); CHLORIDE 106 mmol/L (98-107); CO2 27 mmol/L (21-32); CREATININE 1.3 mg/dL (0.7-1.3); GLUCOSE 109 mg/dL (74-106); POTASSIUM 4.1 mmol/L (3.5-5.1); SODIUM 141 mmol/L (136-145)
[2020-03-25 12:35] LABS: ALBUMIN 4.1 g/dL (3.4-5.0); MAGNESIUM 2.2 mg/dL (1.8-2.4); SGOT 16 U/L (15-37); SGPT 18 U/L (30-65); TOTAL BILIRUBIN 1.1 mg/dL (0.2-1.0); TOTAL PROTEIN 7.3 g/dL (6.4-8.2); TROPONIN-I <0.06 ng/mL (<0.06)
[2020-03-25 13:28] LABS: URINE BILIRUBIN NEGATIVE (Negative); URINE BLOOD NEGATIVE (Negative); URINE CLARITY CLEAR; URINE COLOR YELLOW; URINE GLUCOSE-RANDOM* NEGATIVE (Negative); URINE KETONES NEGATIVE (Negative); URINE LEUKOCYTES-REFLEX NEGATIVE (Negative); URINE NITRITE-REFLEX NEGATIVE (Negative); URINE PROTEIN (DIPSTICK) NEGATIVE (Negative); URINE UROBILINOGEN 0.2 E.U./dl (0.2-1.0)
[2020-03-25 13:36] LABS: AMP/METHAMP Negative (Negative); BARBITURATES Negative (Negative); BENZODIAZEPINES Negative (Negative); COCAINE Negative (Negative); METHADONE Negative (Negative); OPIATES Negative (Negative); PCP Negative (Negative)
[2020-03-25 14:55] VITALS: BP 121/54
== END 2020-03-25 14:56 ==
LOC: ER 10:01
PROVIDERS: Physician Assistant
DX: S22.41XA Multiple fractures of ribs, right side, initial encounter for closed fracture (principal); R55 Syncope and collapse; I10 Essential (primary) hypertension; G89.29 Other chronic pain; M54.9 Dorsalgia, unspecified; Z86.2 Personal history of diseases of the blood and blood-forming organs and certain disorders involving the immune mechanism; Z79.899 Other long term (current) drug therapy; Z88.2 Allergy status to sulfonamides; Z88.5 Allergy status to narcotic agent; Z20.828 Contact with and (suspected) exposure to other viral communicable diseases; W18.39XA Other fall on same level, initial encounter; Y93.89 Activity, other specified; Y92.89 Other specified places as the place of occurrence of the external cause; Y99.8 Other external cause status

== ENCOUNTER 2020-05-23 17:44 | Emergency (ER) | payer MEDICARE, OTHER ==
[~2020-05-23] VITALS: Ht 180.3 cm; Wt 81.7 kg
[2020-05-23 19:31] LABS: ABSOLUTE NEUTROPHILS 3.9 thou/uL (1.4-8.2); EOSINOPHILS 4.2 % (0.0-3.0); HEMATOCRIT 41.9 % (42.0-52.0); HEMOGLOBIN 14.4 gm/dL (14.0-18.0); LYMPHOCYTES 32.6 % (24.0-44.0); MCH 31.4 pg (26.0-34.0); MCHC 34.4 g/dL (28.0-37.0); MCV 91.5 fL (80.0-100.0); MONOCYTES 10.4 % (1.0-8.0); PLATELET COUNT 263 thou/uL (150-400); POLYS 51.8 % (36.0-66.0); RBC 4.58 mil/uL (4.50-6.00); RDW 13.1 % (10.5-14.5); WBC 7.5 thou/uL (4.0-11.0)
[2020-05-23 19:37] LABS: ANION GAP 8 mmol/L (7-16); BUN 20 mg/dL (7-18); CALCIUM 9.5 mg/dL (8.5-10.1); CHLORIDE 103 mmol/L (98-107); CO2 28 mmol/L (21-32); CREATININE 1.2 mg/dL (0.7-1.3); GLUCOSE 107 mg/dL (74-106); POTASSIUM 3.9 mmol/L (3.5-5.1); SODIUM 139 mmol/L (136-145)
[2020-05-23 19:48] LABS: ALBUMIN 4.5 g/dL (3.4-5.0); MAGNESIUM 2.4 mg/dL (1.8-2.4); SGOT 18 U/L (15-37); SGPT 20 U/L (16-63); TOTAL BILIRUBIN 1.3 mg/dL (0.2-1.0); TOTAL PROTEIN 7.7 g/dL (6.4-8.2); TROPONIN-I <0.06 ng/mL (<0.06)
[2020-05-23 21:01] LABS: URINE BILIRUBIN NEGATIVE (Negative); URINE BLOOD NEGATIVE (Negative); URINE CLARITY CLEAR; URINE COLOR YELLOW; URINE GLUCOSE-RANDOM* NEGATIVE (Negative); URINE KETONES NEGATIVE (Negative); URINE LEUKOCYTES-REFLEX NEGATIVE (Negative); URINE NITRITE-REFLEX NEGATIVE (Negative); URINE PROTEIN (DIPSTICK) TRACE (Negative); URINE SPECIFIC GRAVITY 1.025 (1.005-1.035); URINE UROBILINOGEN 0.2 E.U./dl (0.2-1.0)
[2020-05-24 05:24] VITALS: BP 162/104
--- NOTE | 2020-05-24 07:17 | EKG ---
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: dagoberto : 1955 Requested By: Julian Bolanos Order Number: [id number] MD: Pelon Darnell Measurements Intervals [place] Rate: 73 P: 6 [place]: 160 QRS: -57 QRSD: 109 T: 81 QT: 410 QTc: 452 Interpretive Statements Sinus rhythm RSR' in V1 or V2, right VCD or RVH Compared to ECG 03/25/2020 11:26:51 Left ventricular hypertrophy no longer present Electronically Signed On 05-24-2020 7:17:32 [employer] by Pelon Darnell [email or web address] <ELECTRONICALLY SIGNED> By: Pelon Darnell MD, [facility] 05/24/20716 23 23 Pelon Darnell MD, [facility] /EPI
== END 2020-05-24 05:25 ==
LOC: ER 17:44
PROVIDERS: Physician Assistant
DX: M79.10 Myalgia, unspecified site (principal); F41.9 Anxiety disorder, unspecified; F32.9 Major depressive disorder, single episode, unspecified; R42 Dizziness and giddiness; I10 Essential (primary) hypertension; Z86.2 Personal history of diseases of the blood and blood-forming organs and certain disorders involving the immune mechanism; Z79.899 Other long term (current) drug therapy; Z88.5 Allergy status to narcotic agent; Z88.2 Allergy status to sulfonamides; Z20.828 Contact with and (suspected) exposure to other viral communicable diseases

== ENCOUNTER 2020-05-24 05:17 | Inpatient (IN) | payer MEDICARE, OTHER ==
[~2020-05-24] VITALS: Ht 177.8 cm; Wt 78.5 kg
--- NOTE | 2020-05-24 06:34 | NUR ---
Pt admitted to unit @ 0540 this shift. Pt arrived from ED via w/c. Pt calm et cooperative. AOX4. Health assessment with no abnormalities noted at present time. Pt admitted for depression/anxiety/SI without plan. Consents signed by patient. Orders obtained from television news anchor physician. call center agent hospitalist notified of admission. Pt ambulatory et independent with cares. Currently resting in bed with eyes closed. Will continue to monitor per unit protocol.
[2020-05-24 09:23] VITALS: BP 139/92
--- NOTE | 2020-05-24 12:02 | NUR ---
Alert and orientated X4. Laying in bed without s/o distress. States he felt like he was crawling out of his skin prior to being given BP med in ER for HTN. Denies SI/HI at this time but states that he was having suicidal thoughts prior to admission. Denies a plan. Also states he wanted to harm fitting room maintenance mechanic at apartment d/t inattention r/t broken items. Breath sounds clear. Reg HR auscultated. Color pink with brisk capillary refill and palpable peripheral pulses. Independent with voiding. States he had a BM yesterday. Active bowel sounds over soft, flat abdomen. Hx of back surgery. Ambulates with regular, steady gait. Currently eating in dining room [facility] peers.
[2020-05-24 19:12] VITALS: BP 156/97
--- NOTE | 2020-05-25 05:03 | NUR ---
Assumed care of pt @ 1900. Pt calm et cooperative this shift. Took medications whole without difficulty. Ambulates the halls ad connor with steady gait. VSWNL. Health assessment with no abnormalities noted this shift. Denies SI/HI/AVH at present time. Socialized with peers in dayroom until HS. Currently resting quietly in bed with eyes closed. Will continue to monitor per unit protocol.
[2020-05-25 08:14] VITALS: BP 122/78
[2020-05-25 09:38] VITALS: BP 122/78
--- NOTE | 2020-05-25 10:48 | NUR ---
1045 RESUMMED CARE FROM OVERNIGHT SHIFT THIS AM, PATIENT IN ROOM QUIET. PATIENT DENIES SI/HI/AH/VH AT PRESENT PATIENT ORIENTED TIMES 4. PATIENT STATES HE HAS ANXIETY AND HE DID NOT SLEEP VERY WELL. PATIENTS ABDOMEN SOFT ROUND BOWEL SOUNDS PRESENT LUNGS CLEAR. PATIENT INTERACTS WITH STAFF VERY WELL PARTICIPATED IN GROUPS. WILL CONTINUE TO MONITOR PATIENT FOR SAFETY AND BEHAVIORS.
[2020-05-25 19:36] VITALS: BP 156/97
--- NOTE | 2020-05-26 05:23 | NUR ---
Assumed care of pt @ 1900. Pt calm et cooperative most of shift. Took medications whole without difficulty. Ambulates the halls ad connor with steady gait. VSWNL. Health assessment with no abnormalities noted at present time. Denies SI/HI/AVH at present time. Pt became greatly agitated when it was thought to be that his t-shirt was missing from the laundry but it was safely found. Pt expressed great discontent with his current plan of care et wishes to be discharged. Socialized with peers in dayroom until HS. Currently resting in bed with eyes closed. Will continue to monitor per unit protocol.
[2020-05-26 07:00] VITALS: BP 134/92
[2020-05-26 09:27] VITALS: BP 134/92
--- NOTE | 2020-05-26 11:06 | NUR ---
1100 RESUMMED CARE FROM OVERNIGHT SHIFT THIS AM, PATIENT IN ROOM LYING QUIET. PATIENT ALERT AND ORIENTED TIMES 4 SOME ANXIETY ASKED FOR BENADRYL WITH AM MEDICATION. PATIENTS ABDOMEN SOFT ROUND BOWEL SOUNDS PRESENT LUNGS CLEAR. PATIENT DID SOME SPEED WALKING AROUND THE UNIT TO HELP WITH HIS ANXIETY. PATIENTS MOTHER CALLED AND WAS UPSET THAT HER SON IS ON THE PSYCH UNIT. PATIENT WANTS TO LEAVE AND STATES HE IS THE ONLY SANE PERSON ON THE UNIT WILL CONTINUE TO MONITOR PATIENT FOR SAFETY AND BEHAVIORS.
--- NOTE | 2020-05-26 14:48 | NUR ---
SW completed psychosocial assessment and tx plan. SW team will continue to monitor.
[2020-05-27 01:31] VITALS: BP 133/92
--- NOTE | 2020-05-27 05:37 | NUR ---
Assumed care of patient at 1900. Pt up in dining room during earlier part of evening. Pt calm, cooperative and compliant with medications and assessment. Pt reports lower back pain and rates it a /10. Pt received PRN tylenol with HS meds for pain and Benadryl PRN for anxiety. Pt reports to this nurse he had BM 05/26/20. Pt reports appetite good. Still reports anxiety, but states he is looking forward to discharging on Wednesday. Pt is A&O x 4. Pt is ambulatory and independent with ADLs. Pt does report to this nurse that he continues to wake up routinely at 0300 and has racing thoughts. Reports he would like to talk to doctor about the continued racing thoughts and pain prior to discharging. Will continue to monitor for any changes and for safety per hospital protocol.
[2020-05-27 07:52] VITALS: BP 119/77
[2020-05-27] MEDS ORDERED: LAMICTAL 25 MG25 MG PO (08:10)
[2020-05-27] MEDS ORDERED: TRAZODONE HCL100 MG PO (08:10)
[2020-05-27] MEDS ORDERED: TRAZODONE HCL50 MG PO (08:11)
[2020-05-27 09:02] VITALS: BP 119/77
[2020-05-27 10:18] VITALS: BP 119/77
--- NOTE | 2020-05-27 12:34 | NUR ---
Alert and orientated X4. States his face is burning after washing, applied zinc paste to forehead. Provided lotion for pt to apply. No s/o rash. Denies SI/HI. States his goal is to be discharged today. Interactive with staff, multiple requests. Breath sounds clear. Reg HR auscultated. Color pink with brisk capillary refill and palpable peripheral pulses. Independent with voiding. Active bowel sounds over soft, flat abdomen. Regular, steady gait. Benadryl and Trazodone given per pt request for anxiety. Discharged with belongings after stopping at [employer] to grape picker valuables. Discharge instructions given, signed. Discharged with JOO Clark to [employer] to transport home. No s/o distress. Called at about 1230 stating he had left wallet in [employer]. Msg given to JOO to address with [employer].
== END 2020-05-27 11:15 | disposition home or self-care (01) | DRG 885 ==
LOC: SBH 05:17 → EROBS 05:17 → SBH 05:17
PROVIDERS: ADMIT Psychiatry & Neurology Psychiatry; ATTEND Psychiatry & Neurology Psychiatry
DX: F39 Unspecified mood [affective] disorder (principal); I11.0 Hypertensive heart disease with heart failure; K21.9 Gastro-esophageal reflux disease without esophagitis; F11.11 Opioid abuse, in remission; F31.9 Bipolar disorder, unspecified; F41.9 Anxiety disorder, unspecified; Z88.5 Allergy status to narcotic agent; Z88.2 Allergy status to sulfonamides; Z88.8 Allergy status to other drugs, medicaments and biological substances; Z79.899 Other long term (current) drug therapy; Z20.822 Contact with and (suspected) exposure to COVID-19
CPT/HCPCS: 10880

== ENCOUNTER 2020-06-25 16:54 | Emergency (ER) | payer MEDICARE, OTHER ==
[~2020-06-25] VITALS: Ht 177.8 cm; Wt 77.1 kg
[~2020-06-25 16:54] MED LIST changes: +LAMICTAL 25 MG25 MG PO; +TRAZODONE HCL100 MG PO
[2020-06-25] MEDS ORDERED: LOPRESSOR50 MG PO (18:16)
[2020-06-25] MEDS ORDERED: LAMICTAL 25 MG25 MG PO (18:18)
[2020-06-25 19:18] VITALS: BP 142/82
== END 2020-06-25 19:19 | disposition home or self-care (01) ==
LOC: ER 16:54
DX: I10 Essential (primary) hypertension (principal); K21.9 Gastro-esophageal reflux disease without esophagitis; Z79.899 Other long term (current) drug therapy; Z88.2 Allergy status to sulfonamides; Z88.5 Allergy status to narcotic agent; Z88.8 Allergy status to other drugs, medicaments and biological substances